=== PATIENT | female | born 1940 | race Caucasian/White ===

== ENCOUNTER 2017-11-12 20:06 | Inpatient (IN) | payer MEDICARE, OTHER ==
[~2017-11-12] VITALS: Ht 166.4 cm; Wt 72.0 kg
[~2017-11-12 20:06] MED LIST: DABI150C PO; DIAZ5TAB PO; DIGO250T PO; LEVO100T9 PO; MECL25TA3 PO; METO25TA6 PO; MONT10TA21 PO; PRED10TA23 PO; SERT100T10 PO; THEO300T22 PO; TRAZ-143 PO; pantoprazole 40 MG vial IV SCH
[2017-11-12 20:35] LABS: BASOPHILS # (AUTO) 0.1 X10'3 (0-0.2); BASOPHILS % (AUTO) 0.3 % (0-1); EOSINOPHILS % (AUTO) 0.1 % (0-6); HEMATOCRIT 46.9 % (35.0-45.0); HEMOGLOBIN 16.4 g/dl (12.0-16.0); LYMPHOCYTES # (AUTO) 1.2 X10'3 (1.1-4.8); LYMPHOCYTES % (AUTO) 7.9 % (21-51); MEAN CORPUSCULAR HEMOGLOBIN 31.9 PG (27.0-31.0); MEAN CORPUSCULAR VOLUME 91.3 FL (78-98); MEAN PLATELET VOLUME 6.6 FL (7.4-10.4); MONOCYTES # (AUTO) 0.4 X10'3 (0-0.9); MONOCYTES % (AUTO) 2.6 % (2-12); NEUTROPHILS # (AUTO) 13.8 X10'3 (1.8-7.7); NEUTROPHILS % (AUTO) 89.1 % (42-75); PLATELET COUNT 272 X10'3 (140-440); RED BLOOD COUNT 5.14 X10'6 (4.20-5.60); WHITE BLOOD COUNT 15.5 X10'3 (4.5-11.0)
[2017-11-12 20:46] LABS: PROTHROMBIN TIME 10.4 SECONDS (9.0-12.0)
[2017-11-12 20:51] LABS: GLUCOSE 146 MG/DL (70-104)
[2017-11-12 20:52] LABS: ALANINE AMINOTRANSFERASE 19 U/L (12-78); ALBUMIN 4.2 G/DL (3.4-5.0); ALBUMIN/GLOBULIN RATIO 1.2 (1.1-1.5); ALKALINE PHOSPHATASE 85 IU/L (46-116); ANION GAP 13 (8-16); ASPARTATE AMINO TRANSFERASE 12 U/L (10-37); BILIRUBIN,TOTAL 1.1 MG/DL (0.1-1.0); BLOOD UREA NITROGEN 20 MG/DL (7-18); CALCIUM 9.9 MG/DL (8.5-10.1); CHLORIDE 106 MMOL/L (99-107); POTASSIUM 3.9 MMOL/L (3.5-5.1); SODIUM 143 MMOL/L (135-145); TOTAL PROTEIN 7.7 G/DL (6.4-8.2); eGFR 54 ML/MIN
[2017-11-12] MEDS ORDERED: temazepam 15mg capsule PO PRN (21:00)
[2017-11-12] MEDS ORDERED: normal saline 1000ML IV soln IVB ONE (21:20)
[2017-11-12] MEDS ORDERED: ondansetron/PF 4mg/2ml inj IV ONE (21:20)
[2017-11-12] MEDS ORDERED: piperacillin/tazo 4.5gm/100ml 100 ML IV STA (21:39)
[2017-11-12] MEDS ORDERED: morphine 5 MG/ML injection IM ONE (21:40)
[2017-11-12 21:43] LABS: LIPASE 72 U/L (73-393)
[2017-11-12] MEDS ORDERED: morphine 2 MG/ML inj. syringe IV ONE (22:20)
[2017-11-12 23:03] LABS: CLARITY,URINE SLIGHTLY CLOUDY (Clear); COLOR,URINE YELLOW (Yellow); GLUCOSE, URINE NEGATIVE (Neg); KETONES,URINE TRACE mg/dl (Neg); LEUKOCYTE ESTERASE ,URINE LARGE (Neg); NITRITES, URINE NEGATIVE (Neg); OCCULT BLOOD,URINE TRACE-LYSED (Neg); PROTEIN,URINE NEGATIVE (Neg); UROBILINOGEN,URINE 0.2 E.U/dL (0.2-1.0)
[2017-11-12 23:25] LABS: UA COLLECTION TYPE CLN CATCH MIDSTREAM
[2017-11-12 23:27] LABS: CAL OXALATE CRYSTALS 1+ /HPF (NEGATIVE); WBC,URINE 50-100 /HPF (0-4)
[2017-11-12 23:28] LABS: MUCUS STRANDS MODERATE /LPF (Neg); RBC,URINE 0-2 /HPF (0-2); SQUAMOUS EPITHELIAL CELL,UR MODERATE /LPF (FEW); TRANSITIONAL EPI CELLS,URINE FEW /HPF
[2017-11-12 23:29] LABS: BACTERIA,URINE 1+ /HPF (Neg)
[2017-11-12] MEDS ORDERED: bisacodyl 10mg suppository rectal RC PRN (23:45)
[2017-11-12] MEDS ORDERED: magnesium hydroxide 30ml (MOM) UD suspension PO PRN (23:45)
[2017-11-12] MEDS ORDERED: acetaminophen 650mg rectal suppository RC PRN (23:45)
[2017-11-12] MEDS ORDERED: diphenhydrAMINE 25mg capsule PO PRN (23:45)
[2017-11-12] MEDS ORDERED: diphenhydrAMINE 50 mg/ml inj IV PRN (23:45)
[2017-11-12] MEDS ORDERED: mag hydrox/Alum hydrox/simeth 30ml oral suspension PO PRN (23:45)
[2017-11-12] MEDS ORDERED: acetaminophen 325mg tablet PO PRN ×2 (23:45)
[2017-11-12] MEDS ORDERED: HYDROmorphone 1 mg/ml syringe IV PRN ×2 (23:45)
[2017-11-12] MEDS ORDERED: LISI10TA4 (23:48)
[2017-11-12] MEDS ORDERED: POTA10CA69 (23:48)
[2017-11-12] MEDS ORDERED: FURO40TA4 (23:48)
[2017-11-12] MEDS ORDERED: BUDE10.22 (23:48)
[2017-11-13 00:11] LABS: PARTIAL THROMBOPLASTIN TIME 27 SECONDS (22-32)
[2017-11-13 00:22] LABS: MAGNESIUM 1.8 MG/DL (1.5-2.4); PHOSPHORUS 3.8 MG/DL (2.3-4.5)
[2017-11-13] MEDS: normal saline 1000ml 1,000 ML IV SCH ×3 (00:33→21:14)
[2017-11-13] MEDS ORDERED: cefTRIAXone 1g/NS 100ml IVPB 100 ML IV SCH (02:18)
[2017-11-13] MEDS ORDERED: HYDROmorphone 2mg/ml vial IV PRN (02:30)
[2017-11-13] MEDS ORDERED: CefTRIAXone/D5W-Rocephin 1gm 50 ML IV ONE (02:34)
[2017-11-13] MEDS: HYDROmorphone 2mg/ml vial IV PRN ×5 (02:38→21:02)
[2017-11-13] MEDS: ondansetron/PF 4mg/2ml inj IV PRN ×2 (02:38→18:35)
[2017-11-13 06:42] LABS: BASOPHILS % (AUTO) 0.3 % (0-1); EOSINOPHILS # (AUTO) 0.2 X10'3 (0-0.9); EOSINOPHILS % (AUTO) 1.5 % (0-6); HEMATOCRIT 38.9 % (35.0-45.0); HEMOGLOBIN 14.1 g/dl (12.0-16.0); LYMPHOCYTES # (AUTO) 1.1 X10'3 (1.1-4.8); LYMPHOCYTES % (AUTO) 8.9 % (21-51); MEAN CORPUSCULAR HEMOGLOBIN 32.5 PG (27.0-31.0); MEAN CORPUSCULAR VOLUME 89.8 FL (78-98); MEAN PLATELET VOLUME 6.3 FL (7.4-10.4); MONOCYTES # (AUTO) 0.7 X10'3 (0-0.9); MONOCYTES % (AUTO) 5.7 % (2-12); NEUTROPHILS # (AUTO) 10.5 X10'3 (1.8-7.7); NEUTROPHILS % (AUTO) 83.6 % (42-75); PLATELET COUNT 218 X10'3 (140-440); RED BLOOD COUNT 4.33 X10'6 (4.20-5.60); RED CELL DISTRIBUTION WIDTH 14.9 % (11.5-14.5); WHITE BLOOD COUNT 12.6 X10'3 (4.5-11.0)
[2017-11-13 07:01] LABS: ALANINE AMINOTRANSFERASE 17 U/L (12-78); ALBUMIN 3.2 G/DL (3.4-5.0); ALBUMIN/GLOBULIN RATIO 1.1 (1.1-1.5); ALKALINE PHOSPHATASE 70 IU/L (46-116); ANION GAP 9 (8-16); ASPARTATE AMINO TRANSFERASE 13 U/L (10-37); BILIRUBIN,TOTAL 0.8 MG/DL (0.1-1.0); BLOOD UREA NITROGEN 17 MG/DL (7-18); BUN/CREATININE RATIO 18.9 (6.6-38.0); CALCIUM 8.6 MG/DL (8.5-10.1); CHLORIDE 110 MMOL/L (99-107); GLUCOSE 118 MG/DL (70-104); POTASSIUM 3.8 MMOL/L (3.5-5.1); SODIUM 145 MMOL/L (135-145); TOTAL CARBON DIOXIDE 26.3 MMOL/L (24-32); TOTAL PROTEIN 6.2 G/DL (6.4-8.2); eGFR 61 ML/MIN
[2017-11-13] MEDS ORDERED: heparin, porcine 5000 units/ml vial SQ SCH (08:00)
[2017-11-13] MEDS: docusate sod 100mg capsule PO SCH ×2 (08:28→21:02)
[2017-11-13] MEDS: levoTHYROXINE 100mcg tablet PO SCH (08:28)
[2017-11-13] MEDS: dabigatran 150mg capsule PO SCH (08:29)
[2017-11-13] MEDS: digoxin 250mcg (0.25mg) tablet PO SCH (08:29)
[2017-11-13] MEDS: sertraline 50mg tablet PO SCH ×2 (08:29→21:02)
[2017-11-13 08:36] LABS: MEAN CORPUSCULAR HGB CONC 36.2 % (33.0-36.5)
[2017-11-13 09:00] VITALS: BP 131/66
[2017-11-13] MEDS ORDERED: diatrozoate meglu/diatrozoate sod (37% iodine) 120ML oral solution PO ONE (10:10)
[2017-11-13] MEDS ORDERED: diatr meglu/diatrizoate 30ml oral sol.-(3 dose) bottle PO ONE (10:35)
[2017-11-13 11:31] VITALS: BP 139/75
[2017-11-13] MEDS: lactobacillus rhamnosus 10,000 MMU CELLS/CAPSULE PO SCH (16:35)
[2017-11-13] MEDS ORDERED: meclizine 12.5mg tablet PO PRN (18:00)
[2017-11-13 18:40] VITALS: BP 140/65
[2017-11-13] MEDS: cefTRIAXone 1g/NS 100ml IVPB 100 ML IV SCH (21:12)
[2017-11-13] MEDS: heparin 10,000 units/1 ML INJ IV PRN (22:25)
[2017-11-14] VITALS: BP 143/75
[2017-11-14] MEDS: HYDROmorphone 2mg/ml vial IV PRN ×2 (00:56→07:54)
[2017-11-14] MEDS: ondansetron/PF 4mg/2ml inj IV PRN (04:26)
[2017-11-14] MEDS: normal saline 1000ml 1,000 ML IV SCH ×3 (04:28→16:41)
[2017-11-14 04:38] LABS: BASOPHILS % (AUTO) 0 % (0-1); EOSINOPHILS # (AUTO) 0.2 X10'3 (0-0.9); EOSINOPHILS % (AUTO) 1.3 % (0-6); HEMOGLOBIN 14.1 g/dl (12.0-16.0); LYMPHOCYTES % (AUTO) 7.1 % (21-51); MEAN CORPUSCULAR HEMOGLOBIN 32.3 PG (27.0-31.0); MEAN CORPUSCULAR HGB CONC 35.2 % (33.0-36.5); MEAN CORPUSCULAR VOLUME 91.8 FL (78-98); MEAN PLATELET VOLUME 6.8 FL (7.4-10.4); MONOCYTES # (AUTO) 0.8 X10'3 (0-0.9); MONOCYTES % (AUTO) 5.7 % (2-12); NEUTROPHILS # (AUTO) 11.9 X10'3 (1.8-7.7); NEUTROPHILS % (AUTO) 85.9 % (42-75); PLATELET COUNT 209 X10'3 (140-440); RED BLOOD COUNT 4.36 X10'6 (4.20-5.60); RED CELL DISTRIBUTION WIDTH 15.1 % (11.5-14.5); WHITE BLOOD COUNT 13.9 X10'3 (4.5-11.0)
[2017-11-14 05:18] LABS: ALANINE AMINOTRANSFERASE 17 U/L (12-78); ALBUMIN 3.1 G/DL (3.4-5.0); ALKALINE PHOSPHATASE 70 IU/L (46-116); ANION GAP 11 (8-16); ASPARTATE AMINO TRANSFERASE 12 U/L (10-37); BILIRUBIN,TOTAL 1.2 MG/DL (0.1-1.0); BLOOD UREA NITROGEN 15 MG/DL (7-18); BUN/CREATININE RATIO 18.8 (6.6-38.0); CHLORIDE 109 MMOL/L (99-107); GLUCOSE 105 MG/DL (70-104); POTASSIUM 3.3 MMOL/L (3.5-5.1); SODIUM 146 MMOL/L (135-145); TOTAL CARBON DIOXIDE 26.4 MMOL/L (24-32); TOTAL PROTEIN 6.3 G/DL (6.4-8.2); eGFR 70 ML/MIN
[2017-11-14 07:21] VITALS: BP 127/59
[2017-11-14] MEDS: lactobacillus rhamnosus 10,000 MMU CELLS/CAPSULE PO SCH ×2 (07:30→16:41)
[2017-11-14] MEDS: docusate sod 100mg capsule PO SCH ×2 (07:41→21:40)
[2017-11-14] MEDS: sertraline 50mg tablet PO SCH ×2 (07:54→23:51)
[2017-11-14] MEDS: montelukast 10mg tablet PO SCH (07:54)
[2017-11-14] MEDS: levoTHYROXINE 100mcg tablet PO SCH (07:54)
[2017-11-14] MEDS: lisinopril 10 MG tablet PO SCH (07:55)
[2017-11-14] MEDS: digoxin 250mcg (0.25mg) tablet PO SCH (07:55)
[2017-11-14] MEDS ORDERED: potassium Cl 20 mEq SR tablet PO PRN (11:20)
[2017-11-14] MEDS ORDERED: potassium Cl 40MEQ/NS 500ml 500 ML IV PRN ×2 (11:20)
[2017-11-14 11:26] VITALS: BP 136/65
[2017-11-14] MEDS: heparin 10,000 units/1 ML INJ IV PRN (12:51)
[2017-11-14 19:00] VITALS: BP 135/65
[2017-11-14] MEDS ORDERED: D5W ROCEPHIN IV ONE (21:39)
[2017-11-14] MEDS ORDERED: CEFTRIAXONE IV ONE (21:39)
[2017-11-14] MEDS: cefTRIAXone 1g/NS 100ml IVPB 100 ML IV SCH (21:53)
[2017-11-15] VITALS: BP 137/64
[2017-11-15 01:45] LABS: PARTIAL THROMBOPLASTIN TIME 51 SECONDS (22-32)
[2017-11-15 01:49] LABS: ALANINE AMINOTRANSFERASE 14 U/L (12-78); ALBUMIN 2.6 G/DL (3.4-5.0); ALBUMIN/GLOBULIN RATIO 0.9 (1.1-1.5); ALKALINE PHOSPHATASE 72 IU/L (46-116); ANION GAP 9 (8-16); ASPARTATE AMINO TRANSFERASE 13 U/L (10-37); BILIRUBIN,TOTAL 0.7 MG/DL (0.1-1.0); BLOOD UREA NITROGEN 11 MG/DL (7-18); BUN/CREATININE RATIO 15.7 (6.6-38.0); CALCIUM 8.5 MG/DL (8.5-10.1); CHLORIDE 112 MMOL/L (99-107); GLUCOSE 90 MG/DL (70-104); POTASSIUM 3.6 MMOL/L (3.5-5.1); SODIUM 146 MMOL/L (135-145); TOTAL CARBON DIOXIDE 25.2 MMOL/L (24-32); TOTAL PROTEIN 5.4 G/DL (6.4-8.2); eGFR 82 ML/MIN
[2017-11-15 02:09] LABS: BASOPHILS % (AUTO) 0.1 % (0-1); EOSINOPHILS # (AUTO) 0.2 X10'3 (0-0.9); EOSINOPHILS % (AUTO) 1.8 % (0-6); HEMATOCRIT 35.4 % (35.0-45.0); HEMOGLOBIN 12.1 g/dl (12.0-16.0); LYMPHOCYTES # (AUTO) 1.4 X10'3 (1.1-4.8); LYMPHOCYTES % (AUTO) 13.3 % (21-51); MEAN CORPUSCULAR HEMOGLOBIN 31.9 PG (27.0-31.0); MEAN CORPUSCULAR HGB CONC 34.3 % (33.0-36.5); MEAN CORPUSCULAR VOLUME 93.2 FL (78-98); MEAN PLATELET VOLUME 7.1 FL (7.4-10.4); MONOCYTES # (AUTO) 0.6 X10'3 (0-0.9); MONOCYTES % (AUTO) 5.6 % (2-12); NEUTROPHILS # (AUTO) 8.4 X10'3 (1.8-7.7); NEUTROPHILS % (AUTO) 79.2 % (42-75); PLATELET COUNT 191 X10'3 (140-440); RED BLOOD COUNT 3.79 X10'6 (4.20-5.60); RED CELL DISTRIBUTION WIDTH 14.7 % (11.5-14.5); WHITE BLOOD COUNT 10.6 X10'3 (4.5-11.0)
[2017-11-15 07:00] VITALS: BP 135/88
[2017-11-15 07:18] LABS: PARTIAL THROMBOPLASTIN TIME 44 SECONDS (22-32)
[2017-11-15] MEDS: sertraline 50mg tablet PO SCH ×2 (07:46→20:55)
[2017-11-15] MEDS: montelukast 10mg tablet PO SCH (07:46)
[2017-11-15] MEDS: lisinopril 10 MG tablet PO SCH (07:47)
[2017-11-15] MEDS: levoTHYROXINE 100mcg tablet PO SCH (07:47)
[2017-11-15] MEDS: lactobacillus rhamnosus 10,000 MMU CELLS/CAPSULE PO SCH ×2 (07:47→17:05)
[2017-11-15] MEDS: digoxin 250mcg (0.25mg) tablet PO SCH (07:48)
[2017-11-15] MEDS: docusate sod 100mg capsule PO SCH ×2 (07:49→20:55)
[2017-11-15] MEDS: HYDROmorphone 2mg/ml vial IV PRN ×3 (07:50→20:56)
[2017-11-15] MEDS: normal saline 1000ml 1,000 ML IV SCH ×2 (07:55→16:07)
[2017-11-15] MEDS: heparin 10,000 units/1 ML INJ IV PRN (09:05)
[2017-11-15 11:35] VITALS: BP 131/58
[2017-11-15] MEDS: albuterol 2.5 MG/3 ML nebule NEB PRN ×2 (12:10→21:20)
[2017-11-15 13:15] LABS: PARTIAL THROMBOPLASTIN TIME 75 SECONDS (22-32)
[2017-11-15 20:00] VITALS: BP 131/56
[2017-11-15 20:35] LABS: PARTIAL THROMBOPLASTIN TIME 50 SECONDS (22-32)
[2017-11-15] MEDS ORDERED: CefTRIAXone/D5W-Rocephin 1gm 50 ML IV SCH (20:51)
[2017-11-16] VITALS: BP 114/88
[2017-11-16 02:27] LABS: BASOPHILS % (AUTO) 0.3 % (0-1); EOSINOPHILS # (AUTO) 0.2 X10'3 (0-0.9); EOSINOPHILS % (AUTO) 2.3 % (0-6); HEMATOCRIT 31.8 % (35.0-45.0); HEMOGLOBIN 11.3 g/dl (12.0-16.0); LYMPHOCYTES # (AUTO) 1.4 X10'3 (1.1-4.8); LYMPHOCYTES % (AUTO) 18.6 % (21-51); MEAN CORPUSCULAR HEMOGLOBIN 32.5 PG (27.0-31.0); MEAN CORPUSCULAR HGB CONC 35.4 % (33.0-36.5); MEAN PLATELET VOLUME 6.4 FL (7.4-10.4); MONOCYTES # (AUTO) 0.4 X10'3 (0-0.9); MONOCYTES % (AUTO) 6.1 % (2-12); NEUTROPHILS # (AUTO) 5.3 X10'3 (1.8-7.7); NEUTROPHILS % (AUTO) 72.7 % (42-75); PLATELET COUNT 179 X10'3 (140-440); RED BLOOD COUNT 3.46 X10'6 (4.20-5.60); RED CELL DISTRIBUTION WIDTH 14.9 % (11.5-14.5); WHITE BLOOD COUNT 7.3 X10'3 (4.5-11.0)
[2017-11-16 02:43] LABS: ALANINE AMINOTRANSFERASE 18 U/L (12-78); ALBUMIN 2.6 G/DL (3.4-5.0); ALKALINE PHOSPHATASE 68 IU/L (46-116); ANION GAP 8 (8-16); ASPARTATE AMINO TRANSFERASE 13 U/L (10-37); BILIRUBIN,TOTAL 0.4 MG/DL (0.1-1.0); BLOOD UREA NITROGEN 7 MG/DL (7-18); BUN/CREATININE RATIO 8.8 (6.6-38.0); CALCIUM 8.5 MG/DL (8.5-10.1); CHLORIDE 111 MMOL/L (99-107); GLUCOSE 90 MG/DL (70-104); POTASSIUM 3.4 MMOL/L (3.5-5.1); SODIUM 144 MMOL/L (135-145); TOTAL CARBON DIOXIDE 25.5 MMOL/L (24-32); TOTAL PROTEIN 5.3 G/DL (6.4-8.2); eGFR 70 ML/MIN
[2017-11-16] MEDS: albuterol 2.5 MG/3 ML nebule NEB PRN ×2 (05:55→11:45)
[2017-11-16 06:55] VITALS: BP 135/73
[2017-11-16] MEDS: levoTHYROXINE 100mcg tablet PO SCH (07:00)
[2017-11-16] MEDS: normal saline 1000ml 1,000 ML IV SCH ×2 (07:45→17:45)
[2017-11-16] MEDS: docusate sod 100mg capsule PO SCH ×2 (08:00→20:00)
[2017-11-16] MEDS: sertraline 50mg tablet PO SCH ×2 (10:24→20:00)
[2017-11-16] MEDS: lisinopril 10 MG tablet PO SCH (10:24)
[2017-11-16] MEDS: montelukast 10mg tablet PO SCH (10:25)
[2017-11-16] MEDS: potassium Cl 20 mEq SR tablet PO PRN ×2 (10:25→21:30)
[2017-11-16] MEDS: lactobacillus rhamnosus 10,000 MMU CELLS/CAPSULE PO SCH ×2 (10:25→17:58)
[2017-11-16] MEDS: digoxin 250mcg (0.25mg) tablet PO SCH (10:28)
[2017-11-16 10:51] VITALS: BP 122/69
[2017-11-16] MEDS: HYDROmorphone 2mg/ml vial IV PRN ×2 (11:34→19:04)
[2017-11-16] MEDS: heparin 10,000 units/1 ML INJ IV PRN (15:35)
[2017-11-16 20:00] VITALS: BP 129/70
[2017-11-16] MEDS: dabigatran 150mg capsule PO SCH (20:00)
[2017-11-17] VITALS: BP 130/86
[2017-11-17] MEDS: albuterol 2.5 MG/3 ML nebule NEB PRN (02:47)
[2017-11-17] MEDS: normal saline 1000ml 1,000 ML IV SCH (03:45)
[2017-11-17 05:42] LABS: BASOPHILS % (AUTO) 0.3 % (0-1); EOSINOPHILS # (AUTO) 0.1 X10'3 (0-0.9); EOSINOPHILS % (AUTO) 1.7 % (0-6); HEMATOCRIT 33.3 % (35.0-45.0); HEMOGLOBIN 11.4 g/dl (12.0-16.0); LYMPHOCYTES # (AUTO) 0.8 X10'3 (1.1-4.8); LYMPHOCYTES % (AUTO) 9.6 % (21-51); MEAN CORPUSCULAR HEMOGLOBIN 31.8 PG (27.0-31.0); MEAN CORPUSCULAR HGB CONC 34.4 % (33.0-36.5); MEAN CORPUSCULAR VOLUME 92.6 FL (78-98); MEAN PLATELET VOLUME 7.2 FL (7.4-10.4); MONOCYTES # (AUTO) 0.5 X10'3 (0-0.9); MONOCYTES % (AUTO) 5.6 % (2-12); NEUTROPHILS # (AUTO) 6.9 X10'3 (1.8-7.7); NEUTROPHILS % (AUTO) 82.8 % (42-75); PLATELET COUNT 176 X10'3 (140-440); RED BLOOD COUNT 3.59 X10'6 (4.20-5.60); RED CELL DISTRIBUTION WIDTH 14.4 % (11.5-14.5); WHITE BLOOD COUNT 8.3 X10'3 (4.5-11.0)
[2017-11-17 06:23] LABS: ALANINE AMINOTRANSFERASE 11 U/L (12-78); ALBUMIN 2.6 G/DL (3.4-5.0); ALBUMIN/GLOBULIN RATIO 0.9 (1.1-1.5); ALKALINE PHOSPHATASE 80 IU/L (46-116); ANION GAP 9 (8-16); ASPARTATE AMINO TRANSFERASE 13 U/L (10-37); BILIRUBIN,TOTAL 0.7 MG/DL (0.1-1.0); BLOOD UREA NITROGEN 3 MG/DL (7-18); BUN/CREATININE RATIO 3.8 (6.6-38.0); CALCIUM 8.6 MG/DL (8.5-10.1); CHLORIDE 110 MMOL/L (99-107); GLUCOSE 103 MG/DL (70-104); POTASSIUM 3.4 MMOL/L (3.5-5.1); SODIUM 144 MMOL/L (135-145); TOTAL CARBON DIOXIDE 25.3 MMOL/L (24-32); TOTAL PROTEIN 5.4 G/DL (6.4-8.2); eGFR 70 ML/MIN
[2017-11-17 06:55] VITALS: BP 128/68
[2017-11-17] MEDS: docusate sod 100mg capsule PO SCH (08:00)
[2017-11-17] MEDS: levoTHYROXINE 100mcg tablet PO SCH (08:33)
[2017-11-17] MEDS: dabigatran 150mg capsule PO SCH (08:33)
[2017-11-17] MEDS: lactobacillus rhamnosus 10,000 MMU CELLS/CAPSULE PO SCH (08:33)
[2017-11-17] MEDS: montelukast 10mg tablet PO SCH (08:34)
[2017-11-17] MEDS: lisinopril 10 MG tablet PO SCH (08:34)
[2017-11-17] MEDS: sertraline 50mg tablet PO SCH (08:39)
[2017-11-17] MEDS: potassium Cl 20 mEq SR tablet PO PRN (08:43)
[2017-11-17] MEDS: digoxin 250mcg (0.25mg) tablet PO SCH (08:44)
[2017-11-17] MEDS ORDERED: CEPH250T PO (10:21)
[2017-11-17 10:45] VITALS: BP 116/63
== END 2017-11-17 11:45 | disposition home or self-care (01) | DRG 389 ==
LOC: ER 20:07 → ED HOLD 23:45 → SUR 3N 11-13 07:06
PROVIDERS: ADMIT Family Medicine; ATTEND Family Medicine
PROC: 0D9670Z Drainage of Stomach with Drainage Device, Via Natural or Artificial Opening (ICD-10-PCS; principal; 2017-11-12)
DX: K56.609 Unspecified intestinal obstruction, unspecified as to partial versus complete obstruction (principal); I50.22 Chronic systolic (congestive) heart failure; I48.91 Unspecified atrial fibrillation; I11.0 Hypertensive heart disease with heart failure; N39.0 Urinary tract infection, site not specified; E03.9 Hypothyroidism, unspecified; F32.9 Major depressive disorder, single episode, unspecified; I25.10 Atherosclerotic heart disease of native coronary artery without angina pectoris; J44.9 Chronic obstructive pulmonary disease, unspecified; K80.20 Calculus of gallbladder without cholecystitis without obstruction; Z60.2 Problems related to living alone; B96.1 Klebsiella pneumoniae [K. pneumoniae] as the cause of diseases classified elsewhere; I25.2 Old myocardial infarction; Z90.710 Acquired absence of both cervix and uterus; Z88.2 Allergy status to sulfonamides; Z88.1 Allergy status to other antibiotic agents; Z88.6 Allergy status to analgesic agent; Z79.899 Other long term (current) drug therapy; Z79.01 Long term (current) use of anticoagulants; Z86.73 Personal history of transient ischemic attack (TIA), and cerebral infarction without residual deficits
CPT/HCPCS: 36415; 71250; 74176; 80053; 80162; 81001; 83605; 83690; 83735; 83880; 84100; 84145; 85025; 85610; 85730; 87040; 87070; 87077; 87088; 87186; 94640; 94760; 96365; 96375; 99285; A4315; A6258; C9113; J0696; J1170; J1644; J2270; J2405; J2543; J3480; J7030; Q9963

== ENCOUNTER 2018-01-09 18:52 | Inpatient (IN) | payer MEDICARE, OTHER ==
[~2018-01-09] VITALS: Ht 167.6 cm; Wt 72.0 kg
[~2018-01-09 18:52] MED LIST changes: +BUDE10.22; -DIAZ5TAB PO; +FURO40TA4; +LISI10TA4; -METO25TA6 PO; +POTA10CA69; -PRED10TA23 PO; -THEO300T22 PO; -TRAZ-143 PO; +amiodarone 50MG/ML inj IV ONE; +epiNEPHrine 0.1mg/ml 10ml syringe ONE; -pantoprazole 40 MG vial IV SCH; +sodium chloride 0.9% 10ml vial - diluent IJ ONE
[2018-01-09 19:22] LABS: BASOPHILS % (AUTO) 0.6 % (0-1); EOSINOPHILS # (AUTO) 0.1 X10'3 (0-0.9); EOSINOPHILS % (AUTO) 1.3 % (0-6); HEMATOCRIT 39.4 % (35.0-45.0); HEMOGLOBIN 14.1 g/dl (12.0-16.0); LYMPHOCYTES % (AUTO) 13.9 % (21-51); MEAN CORPUSCULAR HEMOGLOBIN 32.2 PG (27.0-31.0); MEAN CORPUSCULAR HGB CONC 35.8 % (33.0-36.5); MEAN CORPUSCULAR VOLUME 89.9 FL (78-98); MEAN PLATELET VOLUME 6.9 FL (7.4-10.4); MONOCYTES # (AUTO) 0.4 X10'3 (0-0.9); MONOCYTES % (AUTO) 4.9 % (2-12); NEUTROPHILS # (AUTO) 5.9 X10'3 (1.8-7.7); NEUTROPHILS % (AUTO) 79.3 % (42-75); PLATELET COUNT 167 X10'3 (140-440); RED BLOOD COUNT 4.38 X10'6 (4.20-5.60); WHITE BLOOD COUNT 7.5 X10'3 (4.5-11.0)
[2018-01-09 19:32] LABS: PARTIAL THROMBOPLASTIN TIME 36 SECONDS (22-32); PROTHROMBIN TIME 10.7 SECONDS (9.0-12.0)
[2018-01-09 19:45] LABS: ALANINE AMINOTRANSFERASE 23 U/L (12-78); ALBUMIN 3.5 G/DL (3.4-5.0); ALKALINE PHOSPHATASE 80 IU/L (46-116); ANION GAP 13 (8-16); ASPARTATE AMINO TRANSFERASE 28 U/L (10-37); BILIRUBIN,TOTAL 1.1 MG/DL (0.1-1.0); BLOOD UREA NITROGEN 7 MG/DL (7-18); BUN/CREATININE RATIO 8.3 (6.6-38.0); CALCIUM 9.1 MG/DL (8.5-10.1); CHLORIDE 104 MMOL/L (99-107); CREATININE 0.84 MG/DL (0.40-0.90); GLUCOSE 108 MG/DL (70-104); POTASSIUM 3.5 MMOL/L (3.5-5.1); SODIUM 140 MMOL/L (135-145); TOTAL CARBON DIOXIDE 23.2 MMOL/L (24-32); TOTAL PROTEIN 7.1 G/DL (6.4-8.2); eGFR 66 ML/MIN
[2018-01-09] MEDS ORDERED: nitroGLYCERIN 0.2mg/hour patch TD ONE (20:15)
[2018-01-09] MEDS ORDERED: CefTRIAXone 2gm/D5W 50ml 50 ML IV ONE (20:30)
[2018-01-09] MEDS ORDERED: azithromycin/NS 500mg/250ml 250 ML IV ONE (20:30)
[2018-01-09] MEDS ORDERED: acetaminophen 325mg tablet PO PRN (21:30)
[2018-01-09] MEDS ORDERED: ondansetron/PF 4mg/2ml inj IV PRN (21:30)
[2018-01-09] MEDS ORDERED: furosemide 20 MG/2 ML vial IV ONE (21:30)
[2018-01-09] MEDS ORDERED: potassium Cl 20 mEq SR tablet PO PRN ×2 (21:30)
[2018-01-09] MEDS ORDERED: potassium Cl 40MEQ/NS 500ml 500 ML IV PRN ×2 (21:30)
[2018-01-09 22:03] LABS: HEMOGLOBIN A1C 5.1 % (4.5-6.2)
[2018-01-09] MEDS: ipratropium/albuterol 3ml nebule NEB PRN (23:48)
[2018-01-10] VITALS (12 sets, daily range): BP systolic 102–138; BP diastolic 41–92
[2018-01-10] MEDS ORDERED: magnesium 2GM in 50ml NS 50 ML IV STA (01:14)
[2018-01-10] MEDS ORDERED: potassium 10mEq/100ml NS w/LIDOcaine (10mg/bag) IV ONE (01:15)
[2018-01-10] MEDS ORDERED: amiodarone 150mg/dext, iso-os 100 ML IV ONE (01:15)
[2018-01-10] MEDS ORDERED: ondansetron/PF 4mg/2ml inj IV ONE (01:15)
[2018-01-10] MEDS ORDERED: magnesium 2GM in 50ml NS 50 ML IV ONE ×2 (01:25→10:30)
[2018-01-10] MEDS: amiodarone/D5 450MG/250ML BAG 250 ML IV SCH ×2 (01:48→11:17)
[2018-01-10 02:16] LABS: ALBUMIN 3.3 G/DL (3.4-5.0); ANION GAP 12 (8-16); BLOOD UREA NITROGEN 7 MG/DL (7-18); BUN/CREATININE RATIO 6.8 (6.6-38.0); CALCIUM 8.7 MG/DL (8.5-10.1); CHLORIDE 102 MMOL/L (99-107); CHOL/HDL RATIO 3.2 (0.00-4.99); CHOLESTEROL 123 MG/DL (0-200); CREATININE 1.03 MG/DL (0.40-0.90); GLUCOSE 114 MG/DL (70-104); HDL CHOLESTEROL 38 MG/DL (35-60); LDL CHOLESTEROL 75 MG/DL (50-100); MAGNESIUM 1.7 MG/DL (1.5-2.4); POTASSIUM 3.6 MMOL/L (3.5-5.1); SODIUM 140 MMOL/L (135-145); TOTAL CARBON DIOXIDE 26.5 MMOL/L (24-32); TRIGLYCERIDES 85 MG/DL (20-135); eGFR 52 ML/MIN
[2018-01-10 02:23] LABS: BASOPHILS % (AUTO) 0 % (0-1); EOSINOPHILS # (AUTO) 0.1 X10'3 (0-0.9); EOSINOPHILS % (AUTO) 1.1 % (0-6); HEMATOCRIT 37.1 % (35.0-45.0); HEMOGLOBIN 13.1 g/dl (12.0-16.0); LYMPHOCYTES # (AUTO) 0.7 X10'3 (1.1-4.8); LYMPHOCYTES % (AUTO) 7.5 % (21-51); MEAN CORPUSCULAR HGB CONC 35.3 % (33.0-36.5); MEAN CORPUSCULAR VOLUME 90.6 FL (78-98); MEAN PLATELET VOLUME 7.2 FL (7.4-10.4); MONOCYTES # (AUTO) 0.1 X10'3 (0-0.9); MONOCYTES % (AUTO) 1.6 % (2-12); NEUTROPHILS # (AUTO) 8.5 X10'3 (1.8-7.7); NEUTROPHILS % (AUTO) 89.8 % (42-75); PLATELET COUNT 143 X10'3 (140-440); RED CELL DISTRIBUTION WIDTH 15.2 % (11.5-14.5); WHITE BLOOD COUNT 9.4 X10'3 (4.5-11.0)
[2018-01-10 04:21] LABS: TOTAL CELLS COUNTED 100
[2018-01-10 04:22] LABS: ANISOCYTOSIS FEW; PLATELET ESTIMATE NORMAL; TOXIC GRANULATION 1+; TOXIC VACUOLATION FEW
[2018-01-10] MEDS: ipratropium/albuterol 3ml nebule NEB PRN (05:31)
[2018-01-10] MEDS ORDERED: non-formulary drug (Sertraline HCl 1 TAB) PO SCH (08:00)
[2018-01-10] MEDS: K and/or MAG REPLACEMENT MC SCH (08:00)
[2018-01-10] MEDS: CefTRIAXone/D5W-Rocephin 1gm 50 ML IV SCH (10:03)
[2018-01-10] MEDS ORDERED: methylPREDNISolone sod succ 125mg/2ml vial IV ONE (10:30)
[2018-01-10] MEDS ORDERED: metoprolol tartrate 1mg/ml inj IV PRN (10:30)
[2018-01-10] MEDS ORDERED: regadenoson 0.4mg/5ml syringe IV ONE (10:30)
[2018-01-10] MEDS: magnesium oxide 400mg tablet PO SCH ×2 (10:30→20:18)
[2018-01-10] MEDS ORDERED: aminophylline 250mg/10ml inj. IV PRN (10:30)
[2018-01-10] MEDS: digoxin 250mcg (0.25mg) tablet PO SCH (10:45)
[2018-01-10] MEDS: dabigatran 150mg capsule PO SCH ×2 (10:46→20:18)
[2018-01-10] MEDS: guaiFENesin ER 600mg tablet PO SCH ×2 (10:46→20:17)
[2018-01-10] MEDS: montelukast 10mg tablet PO SCH (10:46)
[2018-01-10] MEDS: levoTHYROXINE 100mcg tablet PO SCH (10:49)
[2018-01-10] MEDS: azithromycin 250mg tablet PO SCH (10:49)
[2018-01-10] MEDS: sertraline 50mg tablet PO SCH ×2 (10:50→20:18)
[2018-01-10] MEDS: budesonide 0.5mg/2ml UD nebule IH SCH ×2 (10:59→20:00)
[2018-01-10] MEDS: ipratropium/albuterol 3ml nebule NEB SCH ×4 (10:59→23:00)
[2018-01-10] MEDS ORDERED: BUDE10.22 (12:28)
[2018-01-10] MEDS ORDERED: POTA10CA69 (12:28)
[2018-01-10] MEDS: vancomycin/NS 1 GM ADD-VANTAGE 250 ML IV SCH (13:24)
[2018-01-10] MEDS: methylPREDNISolone sod succ 125mg/2ml vial IV SCH ×2 (14:15→20:18)
[2018-01-10] MEDS: potassium Cl 20 mEq SR tablet PO SCH (17:30)
[2018-01-10] MEDS ORDERED: potassium Cl oral solution 20 MEQ/15 ML PO PRN ×2 (19:08→19:09)
[2018-01-10] MEDS: lactobacillus rhamnosus 10,000 MMU CELLS/CAPSULE PO SCH (20:18)
[2018-01-10] MEDS: Melatonin 3mg tablet PO PRN (20:18)
[2018-01-11] VITALS (14 sets, daily range): BP systolic 96–135; BP diastolic 49–85
[2018-01-11] MEDS: amiodarone/D5 450MG/250ML BAG 250 ML IV SCH (01:42)
[2018-01-11] MEDS: methylPREDNISolone sod succ 125mg/2ml vial IV SCH ×4 (02:56→20:53)
[2018-01-11] MEDS: ipratropium/albuterol 3ml nebule NEB PRN (04:03)
[2018-01-11 05:16] LABS: BASOPHILS % (AUTO) 0.1 % (0-1); EOSINOPHILS % (AUTO) 0.8 % (0-6); HEMATOCRIT 33.4 % (35.0-45.0); LYMPHOCYTES # (AUTO) 0.7 X10'3 (1.1-4.8); LYMPHOCYTES % (AUTO) 13.5 % (21-51); MEAN CORPUSCULAR HEMOGLOBIN 31.7 PG (27.0-31.0); MEAN CORPUSCULAR HGB CONC 35.8 % (33.0-36.5); MEAN CORPUSCULAR VOLUME 88.6 FL (78-98); MEAN PLATELET VOLUME 6.8 FL (7.4-10.4); MONOCYTES # (AUTO) 0.2 X10'3 (0-0.9); MONOCYTES % (AUTO) 3.5 % (2-12); NEUTROPHILS # (AUTO) 4.1 X10'3 (1.8-7.7); NEUTROPHILS % (AUTO) 82.1 % (42-75); PLATELET COUNT 158 X10'3 (140-440); RED BLOOD COUNT 3.77 X10'6 (4.20-5.60); RED CELL DISTRIBUTION WIDTH 15.2 % (11.5-14.5); WHITE BLOOD COUNT 4.9 X10'3 (4.5-11.0)
[2018-01-11 05:29] LABS: ANION GAP 11 (8-16); BLOOD UREA NITROGEN 12 MG/DL (7-18); BUN/CREATININE RATIO 15.2 (6.6-38.0); CALCIUM 8.3 MG/DL (8.5-10.1); CHLORIDE 101 MMOL/L (99-107); CREATININE 0.79 MG/DL (0.40-0.90); GLUCOSE 169 MG/DL (70-104); POTASSIUM 3.5 MMOL/L (3.5-5.1); SODIUM 137 MMOL/L (135-145); eGFR 71 ML/MIN
[2018-01-11] MEDS: ipratropium/albuterol 3ml nebule NEB SCH ×5 (06:54→23:00)
[2018-01-11] MEDS: CefTRIAXone/D5W-Rocephin 1gm 50 ML IV SCH (07:40)
[2018-01-11] MEDS: guaiFENesin ER 600mg tablet PO SCH ×2 (07:41→20:52)
[2018-01-11] MEDS: lactobacillus rhamnosus 10,000 MMU CELLS/CAPSULE PO SCH ×2 (07:41→20:51)
[2018-01-11] MEDS: azithromycin 250mg tablet PO SCH (07:41)
[2018-01-11] MEDS: levoTHYROXINE 100mcg tablet PO SCH (07:41)
[2018-01-11] MEDS: digoxin 250mcg (0.25mg) tablet PO SCH (07:41)
[2018-01-11] MEDS: dabigatran 150mg capsule PO SCH ×2 (07:42→20:52)
[2018-01-11] MEDS: sertraline 50mg tablet PO SCH ×2 (07:42→20:51)
[2018-01-11] MEDS: potassium Cl 20 mEq SR tablet PO SCH ×2 (07:42→17:30)
[2018-01-11] MEDS: montelukast 10mg tablet PO SCH (07:42)
[2018-01-11] MEDS: magnesium oxide 400mg tablet PO SCH ×2 (07:42→20:51)
[2018-01-11] MEDS: K and/or MAG REPLACEMENT MC SCH (08:00)
[2018-01-11] MEDS: budesonide 0.5mg/2ml UD nebule IH SCH ×2 (08:00→19:42)
[2018-01-11] MEDS ORDERED: regadenoson 0.4mg/5ml syringe IV ONE (11:14)
[2018-01-11] MEDS ORDERED: aminophylline inj. 10 ML IV ONE (11:14)
[2018-01-11] MEDS: vancomycin/NS 1 GM ADD-VANTAGE 250 ML IV SCH (13:47)
[2018-01-11] MEDS: carVEDilol 3.125mg tablet PO SCH (20:52)
[2018-01-11] MEDS: Melatonin 3mg tablet PO PRN (21:12)
[2018-01-12] MEDS: vancomycin/NS 1 GM ADD-VANTAGE 250 ML IV SCH ×2 (01:56→12:29)
[2018-01-12] MEDS: methylPREDNISolone sod succ 125mg/2ml vial IV SCH ×2 (01:57→07:20)
[2018-01-12 02:00] VITALS: BP 119/62
[2018-01-12 02:03] LABS: ALBUMIN 2.7 G/DL (3.4-5.0); ANION GAP 8 (8-16); BLOOD UREA NITROGEN 19 MG/DL (7-18); BUN/CREATININE RATIO 21.1 (6.6-38.0); CALCIUM 7.5 MG/DL (8.5-10.1); CHLORIDE 108 MMOL/L (99-107); GLUCOSE 128 MG/DL (70-104); POTASSIUM 3.7 MMOL/L (3.5-5.1); SODIUM 141 MMOL/L (135-145); TOTAL CARBON DIOXIDE 25.2 MMOL/L (24-32); eGFR 61 ML/MIN
[2018-01-12 04:59] LABS: BASOPHILS % (AUTO) 0 % (0-1); EOSINOPHILS # (AUTO) 0.1 X10'3 (0-0.9); EOSINOPHILS % (AUTO) 1.2 % (0-6); HEMOGLOBIN 11.5 g/dl (12.0-16.0); LYMPHOCYTES # (AUTO) 0.7 X10'3 (1.1-4.8); LYMPHOCYTES % (AUTO) 6.2 % (21-51); MEAN CORPUSCULAR HEMOGLOBIN 31.3 PG (27.0-31.0); MEAN CORPUSCULAR HGB CONC 34.8 % (33.0-36.5); MEAN CORPUSCULAR VOLUME 89.9 FL (78-98); MEAN PLATELET VOLUME 6.9 FL (7.4-10.4); MONOCYTES # (AUTO) 0.7 X10'3 (0-0.9); MONOCYTES % (AUTO) 6.5 % (2-12); NEUTROPHILS % (AUTO) 86.1 % (42-75); PLATELET COUNT 204 X10'3 (140-440); RED BLOOD COUNT 3.67 X10'6 (4.20-5.60); RED CELL DISTRIBUTION WIDTH 15.4 % (11.5-14.5); WHITE BLOOD COUNT 10.5 X10'3 (4.5-11.0)
[2018-01-12 05:30] VITALS: BP 130/72
[2018-01-12] MEDS: budesonide 0.5mg/2ml UD nebule IH SCH ×2 (06:49→19:44)
[2018-01-12] MEDS: ipratropium/albuterol 3ml nebule NEB SCH ×4 (06:49→23:00)
[2018-01-12] MEDS: dabigatran 150mg capsule PO SCH ×2 (07:18→20:30)
[2018-01-12] MEDS: montelukast 10mg tablet PO SCH (07:18)
[2018-01-12] MEDS: guaiFENesin ER 600mg tablet PO SCH ×2 (07:18→20:29)
[2018-01-12] MEDS: lisinopril 2.5mg tablet PO SCH (07:19)
[2018-01-12] MEDS: sertraline 50mg tablet PO SCH ×2 (07:19→20:31)
[2018-01-12] MEDS: azithromycin 250mg tablet PO SCH (07:19)
[2018-01-12] MEDS: magnesium oxide 400mg tablet PO SCH ×2 (07:19→20:29)
[2018-01-12] MEDS: lactobacillus rhamnosus 10,000 MMU CELLS/CAPSULE PO SCH ×2 (07:19→20:31)
[2018-01-12] MEDS: carVEDilol 3.125mg tablet PO SCH ×2 (07:19→20:29)
[2018-01-12] MEDS: aspirin 81mg tablet.DR PO SCH (07:19)
[2018-01-12] MEDS: levoTHYROXINE 100mcg tablet PO SCH (07:19)
[2018-01-12] MEDS: digoxin 250mcg (0.25mg) tablet PO SCH (07:20)
[2018-01-12] MEDS: CefTRIAXone/D5W-Rocephin 1gm 50 ML IV SCH (07:20)
[2018-01-12] MEDS: K and/or MAG REPLACEMENT MC SCH (07:31)
[2018-01-12] MEDS: potassium Cl 20 mEq SR tablet PO SCH ×2 (07:31→16:43)
[2018-01-12] MEDS: ipratropium/albuterol 3ml nebule NEB PRN (10:24)
[2018-01-12 11:00] VITALS: BP 122/72
[2018-01-12] MEDS: predniSONE 20 mg tablet PO SCH (12:30)
[2018-01-12 15:00] VITALS: BP 128/73
[2018-01-12 18:00] VITALS: BP 129/63
[2018-01-12] MEDS: Melatonin 3mg tablet PO PRN (20:28)
[2018-01-12 23:30] VITALS: BP 141/75
[2018-01-13] VITALS (9 sets, daily range): BP systolic 116–183; BP diastolic 57–118
[2018-01-13] MEDS ORDERED: VANCOMYCIN LEVEL IV ONE ×2 (00:30→10:30)
[2018-01-13] MEDS: vancomycin/NS 1 GM ADD-VANTAGE 250 ML IV SCH ×2 (00:34→13:00)
[2018-01-13 01:10] LABS: BASOPHILS # (AUTO) 0.1 X10'3 (0-0.2); BASOPHILS % (AUTO) 1.2 % (0-1); EOSINOPHILS % (AUTO) 0 % (0-6); HEMOGLOBIN 11.6 g/dl (12.0-16.0); LYMPHOCYTES # (AUTO) 0.8 X10'3 (1.1-4.8); LYMPHOCYTES % (AUTO) 7.4 % (21-51); MEAN CORPUSCULAR HEMOGLOBIN 31.2 PG (27.0-31.0); MEAN CORPUSCULAR HGB CONC 35.1 % (33.0-36.5); MEAN CORPUSCULAR VOLUME 88.8 FL (78-98); MEAN PLATELET VOLUME 7.3 FL (7.4-10.4); MONOCYTES # (AUTO) 0.8 X10'3 (0-0.9); MONOCYTES % (AUTO) 7.6 % (2-12); NEUTROPHILS # (AUTO) 9.4 X10'3 (1.8-7.7); NEUTROPHILS % (AUTO) 83.8 % (42-75); PLATELET COUNT 210 X10'3 (140-440); RED BLOOD COUNT 3.72 X10'6 (4.20-5.60); RED CELL DISTRIBUTION WIDTH 14.2 % (11.5-14.5); WHITE BLOOD COUNT 11.1 X10'3 (4.5-11.0)
[2018-01-13 01:24] LABS: ANION GAP 11 (8-16); BLOOD UREA NITROGEN 29 MG/DL (7-18); BUN/CREATININE RATIO 26.6 (6.6-38.0); CALCIUM 8.9 MG/DL (8.5-10.1); CHLORIDE 106 MMOL/L (99-107); CREATININE 1.09 MG/DL (0.40-0.90); GLUCOSE 120 MG/DL (70-104); POTASSIUM 4.3 MMOL/L (3.5-5.1); SODIUM 142 MMOL/L (135-145); TOTAL CARBON DIOXIDE 25.5 MMOL/L (24-32); VANCOMYCIN,TROUGH 14.1 UG/ML (6.0-14.0); eGFR 49 ML/MIN
[2018-01-13] MEDS: ipratropium/albuterol 3ml nebule NEB SCH ×5 (07:09→23:17)
[2018-01-13] MEDS: budesonide 0.5mg/2ml UD nebule IH SCH ×2 (07:10→19:35)
[2018-01-13] MEDS: K and/or MAG REPLACEMENT MC SCH (08:00)
[2018-01-13] MEDS ORDERED: predniSONE 20 mg tablet PO SCH (08:00)
[2018-01-13] MEDS: carVEDilol 3.125mg tablet PO SCH ×2 (08:51→19:13)
[2018-01-13] MEDS: lisinopril 2.5mg tablet PO SCH (08:51)
[2018-01-13] MEDS: potassium Cl 20 mEq SR tablet PO SCH ×2 (08:51→18:03)
[2018-01-13] MEDS: guaiFENesin ER 600mg tablet PO SCH ×2 (08:51→19:13)
[2018-01-13] MEDS: azithromycin 250mg tablet PO SCH (08:51)
[2018-01-13] MEDS: levoTHYROXINE 100mcg tablet PO SCH (08:51)
[2018-01-13] MEDS: aspirin 81mg tablet.DR PO SCH (08:51)
[2018-01-13] MEDS: lactobacillus rhamnosus 10,000 MMU CELLS/CAPSULE PO SCH ×2 (08:51→19:13)
[2018-01-13] MEDS: montelukast 10mg tablet PO SCH (08:52)
[2018-01-13] MEDS: digoxin 250mcg (0.25mg) tablet PO SCH (08:52)
[2018-01-13] MEDS: sertraline 50mg tablet PO SCH ×2 (08:52→19:13)
[2018-01-13] MEDS: magnesium oxide 400mg tablet PO SCH ×2 (08:52→19:13)
[2018-01-13] MEDS: CefTRIAXone/D5W-Rocephin 1gm 50 ML IV SCH (08:53)
[2018-01-13] MEDS: nitroGLYCERIN 0.4mg SUBLingual tab SL PRN ×3 (09:59→10:45)
[2018-01-13] MEDS ORDERED: mag hydrox/Alum hydrox/simeth 30ml oral suspension PO PRN (10:35)
[2018-01-13] MEDS ORDERED: nitroGLYCERIN 0.4mg SUBLingual tab SL PRN (10:40)
[2018-01-13] MEDS ORDERED: nitroGLYCERIN-Tridil 50MG/D5W 250 ML IV PRN (10:45)
[2018-01-13] MEDS: pantoprazole 40mg Tablet.DR PO SCH (10:47)
[2018-01-13] MEDS: dabigatran 150mg capsule PO SCH (10:47)
[2018-01-13] MEDS ORDERED: morphine 4 MG/ML inj SYRINge ONE (10:52)
[2018-01-13] MEDS ORDERED: morphine 4 MG/ML inj SYRINge IV ONE (10:55)
[2018-01-13] MEDS: normal saline 1000ml 1,000 ML IV SCH (10:57)
[2018-01-13] MEDS ORDERED: morphine 4 MG/ML inj SYRINge IV PRN (12:15)
[2018-01-13] MEDS ORDERED: aspirin 81mg tab.chew PO ONE (12:15)
[2018-01-13 12:16] LABS: ABG BASE EXCESS 0.2 mmol/L (-2.0-3.0); ABG HCO3 26.3 mmol/L (22.0-26.0); ABG OXYGEN SATURATION 94.1 % (95-98); ABG PCO2 (T) 48.6 mmHg (32.0-45.0); ABG PH (T) 7.352 (7.350-7.450); ABG PO2 (T) 76.3 mmHg (83-108); ALLEN'S TEST Positive; FCOHb 0.3 % (0.5-1.5); FLOW 4 L/min; FMetHb 0.2 % (0.3-1.12); FO2Hb 93.6 % (94-100); TOTAL HEMOGLOBIN 14.1 G/dl (12.0-16.0)
[2018-01-13] MEDS ORDERED: LORazepam 2 mg/ml vial IV PRN (12:30)
[2018-01-13] MEDS: predniSONE 20 mg tablet PO SCH (14:00)
[2018-01-13] MEDS: methylPREDNISolone sod succ 125mg/2ml vial IV SCH ×2 (14:40→19:13)
[2018-01-13] MEDS: ipratropium/albuterol 3ml nebule NEB PRN (16:12)
[2018-01-14] VITALS (9 sets, daily range): BP systolic 121–138; BP diastolic 53–79
[2018-01-14] MEDS: vancomycin/NS 1 GM ADD-VANTAGE 250 ML IV SCH ×2 (00:54→13:54)
[2018-01-14] MEDS: normal saline 1000ml 1,000 ML IV SCH ×2 (00:54→15:21)
[2018-01-14] MEDS: methylPREDNISolone sod succ 125mg/2ml vial IV SCH ×4 (02:32→19:46)
[2018-01-14 05:38] LABS: BASOPHILS % (AUTO) 0.1 % (0-1); EOSINOPHILS # (AUTO) 0.2 X10'3 (0-0.9); EOSINOPHILS % (AUTO) 1.6 % (0-6); HEMATOCRIT 31.8 % (35.0-45.0); LYMPHOCYTES # (AUTO) 0.5 X10'3 (1.1-4.8); MEAN CORPUSCULAR HEMOGLOBIN 31.3 PG (27.0-31.0); MEAN CORPUSCULAR HGB CONC 34.5 % (33.0-36.5); MEAN CORPUSCULAR VOLUME 90.8 FL (78-98); MEAN PLATELET VOLUME 6.7 FL (7.4-10.4); MONOCYTES # (AUTO) 0.3 X10'3 (0-0.9); MONOCYTES % (AUTO) 2.7 % (2-12); NEUTROPHILS % (AUTO) 90.6 % (42-75); PLATELET COUNT 234 X10'3 (140-440); RED BLOOD COUNT 3.51 X10'6 (4.20-5.60); RED CELL DISTRIBUTION WIDTH 15.7 % (11.5-14.5); WHITE BLOOD COUNT 9.9 X10'3 (4.5-11.0)
[2018-01-14 06:33] LABS: ALBUMIN 2.8 G/DL (3.4-5.0); ANION GAP 11 (8-16); BLOOD UREA NITROGEN 22 MG/DL (7-18); BUN/CREATININE RATIO 24.2 (6.6-38.0); CALCIUM 8.3 MG/DL (8.5-10.1); CHLORIDE 110 MMOL/L (99-107); CREATININE 0.91 MG/DL (0.40-0.90); GLUCOSE 128 MG/DL (70-104); POTASSIUM 4.7 MMOL/L (3.5-5.1); SODIUM 145 MMOL/L (135-145); TOTAL CARBON DIOXIDE 24.5 MMOL/L (24-32); eGFR 60 ML/MIN
[2018-01-14] MEDS: ipratropium/albuterol 3ml nebule NEB SCH ×5 (07:09→23:02)
[2018-01-14] MEDS: budesonide 0.5mg/2ml UD nebule IH SCH ×2 (07:09→19:36)
[2018-01-14] MEDS: pantoprazole 40mg Tablet.DR PO SCH (07:30)
[2018-01-14] MEDS: potassium Cl 20 mEq SR tablet PO SCH ×2 (07:47→17:36)
[2018-01-14] MEDS: sertraline 50mg tablet PO SCH ×2 (07:47→19:47)
[2018-01-14] MEDS: guaiFENesin ER 600mg tablet PO SCH ×2 (07:47→19:47)
[2018-01-14] MEDS: lisinopril 2.5mg tablet PO SCH (07:48)
[2018-01-14] MEDS: magnesium oxide 400mg tablet PO SCH ×2 (07:48→19:46)
[2018-01-14] MEDS: montelukast 10mg tablet PO SCH (07:48)
[2018-01-14] MEDS: lactobacillus rhamnosus 10,000 MMU CELLS/CAPSULE PO SCH ×2 (07:48→19:47)
[2018-01-14] MEDS: aspirin 325mg tablet PO SCH (07:48)
[2018-01-14] MEDS: levoTHYROXINE 100mcg tablet PO SCH (07:48)
[2018-01-14] MEDS: K and/or MAG REPLACEMENT MC SCH (08:00)
[2018-01-14] MEDS: CefTRIAXone/D5W-Rocephin 1gm 50 ML IV SCH (08:14)
[2018-01-14] MEDS: carVEDilol 3.125mg tablet PO SCH ×2 (08:15→19:47)
[2018-01-14] MEDS: digoxin 250mcg (0.25mg) tablet PO SCH (08:16)
[2018-01-14] MEDS: predniSONE 20 mg tablet PO SCH (14:00)
[2018-01-14] MEDS ORDERED: aspirin 325mg tablet PO ONE (14:05)
[2018-01-14] MEDS: SYMBICORT 160/4.5 INHALER IH SCH (23:01)
[2018-01-15] VITALS (16 sets, daily range): BP systolic 116–157; BP diastolic 67–86
[2018-01-15] MEDS ORDERED: VANCOMYCIN LEVEL IV ONE (00:30)
[2018-01-15 01:21] LABS: BASOPHILS % (AUTO) 0.1 % (0-1); EOSINOPHILS % (AUTO) 0 % (0-6); HEMATOCRIT 29.4 % (35.0-45.0); HEMOGLOBIN 10.1 g/dl (12.0-16.0); LYMPHOCYTES # (AUTO) 0.5 X10'3 (1.1-4.8); LYMPHOCYTES % (AUTO) 5.5 % (21-51); MEAN CORPUSCULAR HEMOGLOBIN 30.9 PG (27.0-31.0); MEAN CORPUSCULAR HGB CONC 34.3 % (33.0-36.5); MEAN CORPUSCULAR VOLUME 90.1 FL (78-98); MEAN PLATELET VOLUME 7.1 FL (7.4-10.4); MONOCYTES # (AUTO) 0.3 X10'3 (0-0.9); MONOCYTES % (AUTO) 3.3 % (2-12); NEUTROPHILS # (AUTO) 8.5 X10'3 (1.8-7.7); NEUTROPHILS % (AUTO) 91.1 % (42-75); PLATELET COUNT 229 X10'3 (140-440); RED BLOOD COUNT 3.26 X10'6 (4.20-5.60); RED CELL DISTRIBUTION WIDTH 14.3 % (11.5-14.5); WHITE BLOOD COUNT 9.3 X10'3 (4.5-11.0)
[2018-01-15] MEDS: vancomycin/NS 1 GM ADD-VANTAGE 250 ML IV SCH ×2 (01:22→13:15)
[2018-01-15] MEDS: methylPREDNISolone sod succ 125mg/2ml vial IV SCH ×4 (01:27→20:00)
[2018-01-15 01:34] LABS: ALBUMIN 2.5 G/DL (3.4-5.0); ANION GAP 8 (8-16); BLOOD UREA NITROGEN 22 MG/DL (7-18); BUN/CREATININE RATIO 24.7 (6.6-38.0); CHLORIDE 110 MMOL/L (99-107); CREATININE 0.89 MG/DL (0.40-0.90); GLUCOSE 136 MG/DL (70-104); POTASSIUM 4.4 MMOL/L (3.5-5.1); SODIUM 142 MMOL/L (135-145); TOTAL CARBON DIOXIDE 24.5 MMOL/L (24-32); eGFR 62 ML/MIN
[2018-01-15 01:47] LABS: VANCOMYCIN,TROUGH 20.5 UG/ML (6.0-14.0)
[2018-01-15] MEDS ORDERED: VANCOMYCIN 750MG IV in NS 250 ML IV SCH (02:11)
[2018-01-15] MEDS: normal saline 1000ml 1,000 ML IV SCH ×2 (05:17→19:57)
[2018-01-15] MEDS: ipratropium/albuterol 3ml nebule NEB SCH ×5 (07:28→22:58)
[2018-01-15] MEDS: budesonide 0.5mg/2ml UD nebule IH SCH ×2 (07:29→19:34)
[2018-01-15] MEDS: CefTRIAXone/D5W-Rocephin 1gm 50 ML IV SCH (07:31)
[2018-01-15] MEDS: montelukast 10mg tablet PO SCH (07:32)
[2018-01-15] MEDS: levoTHYROXINE 100mcg tablet PO SCH (07:32)
[2018-01-15] MEDS: pantoprazole 40mg Tablet.DR PO SCH (07:32)
[2018-01-15] MEDS: lactobacillus rhamnosus 10,000 MMU CELLS/CAPSULE PO SCH ×2 (07:32→21:03)
[2018-01-15] MEDS: atorvastatin 20mg tablet PO SCH (07:32)
[2018-01-15] MEDS: sertraline 50mg tablet PO SCH ×2 (07:32→21:06)
[2018-01-15] MEDS: carVEDilol 3.125mg tablet PO SCH ×2 (07:32→21:03)
[2018-01-15] MEDS: lisinopril 2.5mg tablet PO SCH (07:32)
[2018-01-15] MEDS: digoxin 250mcg (0.25mg) tablet PO SCH (07:33)
[2018-01-15] MEDS: magnesium oxide 400mg tablet PO SCH ×2 (08:00→21:04)
[2018-01-15] MEDS: guaiFENesin ER 600mg tablet PO SCH ×2 (08:00→21:04)
[2018-01-15] MEDS: K and/or MAG REPLACEMENT MC SCH (08:00)
[2018-01-15] MEDS: dabigatran 150mg capsule PO SCH ×2 (08:00→20:00)
[2018-01-15] MEDS: potassium Cl 20 mEq SR tablet PO SCH ×2 (08:30→17:21)
[2018-01-15] MEDS ORDERED: aspirin 325mg tablet PO SCH (08:30)
[2018-01-15] MEDS: aspirin 325mg tablet PO SCH (08:30)
[2018-01-15] MEDS ORDERED: LIDOcaine 1%/PF (10mg/ml) 5ml vial ONE (08:39)
[2018-01-15] MEDS ORDERED: iohexol 350MG/ML 100ml bottle IV ONE (08:39)
[2018-01-15] MEDS ORDERED: midazolam 2 mg/2 ml injection ONE (08:59)
[2018-01-15] MEDS ORDERED: fentaNYL/PF 50MCG/1 ML 2ML syringe ONE (08:59)
[2018-01-15] MEDS: SYMBICORT 160/4.5 INHALER IH SCH ×2 (09:00→19:35)
[2018-01-15] MEDS ORDERED: proCHLORperazine 10 MG/2 ml inj IV PRN (10:35)
[2018-01-15] MEDS ORDERED: HYDROcodone/acetaminophen 10/325mg tab PO PRN ×2 (10:35)
[2018-01-15] MEDS ORDERED: OXAZEpam 15mg capsule PO PRN (10:35)
[2018-01-15] MEDS ORDERED: ondansetron/PF 4mg/2ml inj IV PRN (10:35)
[2018-01-15] MEDS: predniSONE 20 mg tablet PO SCH (13:15)
[2018-01-15] MEDS: Melatonin 3mg tablet PO PRN (21:06)
[2018-01-16] MEDS: methylPREDNISolone sod succ 125mg/2ml vial IV SCH ×3 (02:13→14:03)
[2018-01-16] MEDS: vancomycin/NS 1 GM ADD-VANTAGE 250 ML IV SCH ×2 (02:14→14:03)
[2018-01-16 03:00] VITALS: BP 146/79
[2018-01-16 05:41] LABS: CHOL/HDL RATIO 2.8 (0.00-4.99); CHOLESTEROL 95 MG/DL (0-200); HDL CHOLESTEROL 34 MG/DL (35-60); LDL CHOLESTEROL 50 MG/DL (50-100); TRIGLYCERIDES 102 MG/DL (20-135)
[2018-01-16 06:59] VITALS: BP 150/78
[2018-01-16] MEDS: K and/or MAG REPLACEMENT MC SCH (08:00)
[2018-01-16] MEDS: budesonide 0.5mg/2ml UD nebule IH SCH (08:00)
[2018-01-16] MEDS: dabigatran 150mg capsule PO SCH (08:00)
[2018-01-16] MEDS: CefTRIAXone/D5W-Rocephin 1gm 50 ML IV SCH (08:00)
[2018-01-16] MEDS: atorvastatin 20mg tablet PO SCH (09:13)
[2018-01-16] MEDS: aspirin 325mg tablet PO SCH (09:13)
[2018-01-16] MEDS: montelukast 10mg tablet PO SCH (09:13)
[2018-01-16] MEDS: sertraline 50mg tablet PO SCH (09:13)
[2018-01-16] MEDS: lisinopril 2.5mg tablet PO SCH (09:13)
[2018-01-16] MEDS: levoTHYROXINE 100mcg tablet PO SCH (09:14)
[2018-01-16] MEDS: potassium Cl 20 mEq SR tablet PO SCH (09:14)
[2018-01-16] MEDS: guaiFENesin ER 600mg tablet PO SCH (09:14)
[2018-01-16] MEDS: carVEDilol 3.125mg tablet PO SCH (09:14)
[2018-01-16] MEDS: lactobacillus rhamnosus 10,000 MMU CELLS/CAPSULE PO SCH (09:14)
[2018-01-16] MEDS: pantoprazole 40mg Tablet.DR PO SCH (09:14)
[2018-01-16] MEDS: magnesium oxide 400mg tablet PO SCH (09:14)
[2018-01-16] MEDS: digoxin 250mcg (0.25mg) tablet PO SCH (09:15)
[2018-01-16] MEDS: ipratropium/albuterol 3ml nebule NEB SCH ×3 (09:19→15:38)
[2018-01-16] MEDS: normal saline 1000ml 1,000 ML IV SCH (10:39)
[2018-01-16 11:00] VITALS: BP 134/73
[2018-01-16 11:07] LABS: ALBUMIN 2.6 G/DL (3.4-5.0); ANION GAP 12 (8-16); BLOOD UREA NITROGEN 24 MG/DL (7-18); BUN/CREATININE RATIO 26.7 (6.6-38.0); CALCIUM 8.4 MG/DL (8.5-10.1); CHLORIDE 109 MMOL/L (99-107); GLUCOSE 137 MG/DL (70-104); POTASSIUM 4.1 MMOL/L (3.5-5.1); SODIUM 142 MMOL/L (135-145); TOTAL CARBON DIOXIDE 21.2 MMOL/L (24-32); eGFR 61 ML/MIN
[2018-01-16] MEDS: predniSONE 20 mg tablet PO SCH (14:00)
[2018-01-16 15:00] VITALS: BP 138/67
[2018-01-16] MEDS ORDERED: IPRA3AMP9 NEB (15:31)
[2018-01-17] MEDS ORDERED: VANCOMYCIN LEVEL IV ONE (00:30)
== END 2018-01-16 17:30 | disposition home health service (06) | DRG 280 ==
LOC: ER 18:52 → ED HOLD 21:26 → EDBEDREQ 01-10 05:49 → PCU 3S 01-10 09:22 → MED 3N 01-12 23:15 → PCU 3S 01-13 11:14
PROVIDERS: ADMIT Family Medicine; ATTEND Family Medicine
PROC: 4A02XM4 Measurement of Cardiac Total Activity, External Approach (ICD-10-PCS; principal; 2018-01-11)
PROC: 3E073KZ Introduction of Other Diagnostic Substance into Coronary Artery, Percutaneous Approach (ICD-10-PCS; 2018-01-11)
PROC: 4A023N7 Measurement of Cardiac Sampling and Pressure, Left Heart, Percutaneous Approach (ICD-10-PCS; 2018-01-15)
PROC: B2111ZZ Fluoroscopy of Multiple Coronary Arteries using Low Osmolar Contrast (ICD-10-PCS; 2018-01-15)
PROC: B2151ZZ Fluoroscopy of Left Heart using Low Osmolar Contrast (ICD-10-PCS; 2018-01-15)
DX: I21.4 Non-ST elevation (NSTEMI) myocardial infarction (principal); J18.9 Pneumonia, unspecified organism; N17.9 Acute kidney failure, unspecified; J96.02 Acute respiratory failure with hypercapnia; J96.01 Acute respiratory failure with hypoxia; I13.0 Hypertensive heart and chronic kidney disease with heart failure and stage 1 through stage 4 chronic kidney disease, or unspecified chronic kidney disease; I50.22 Chronic systolic (congestive) heart failure; I42.9 Cardiomyopathy, unspecified; I48.92 Unspecified atrial flutter; I48.2 Chronic atrial fibrillation; J44.0 Chronic obstructive pulmonary disease with (acute) lower respiratory infection; J44.1 Chronic obstructive pulmonary disease with (acute) exacerbation; N18.9 Chronic kidney disease, unspecified; E03.9 Hypothyroidism, unspecified; F32.9 Major depressive disorder, single episode, unspecified; I25.10 Atherosclerotic heart disease of native coronary artery without angina pectoris; I45.10 Unspecified right bundle-branch block; I67.9 Cerebrovascular disease, unspecified; Z60.2 Problems related to living alone; Z90.710 Acquired absence of both cervix and uterus; Z90.49 Acquired absence of other specified parts of digestive tract; Z95.810 Presence of automatic (implantable) cardiac defibrillator; Z88.2 Allergy status to sulfonamides; Z88.1 Allergy status to other antibiotic agents; Z79.899 Other long term (current) drug therapy; Z79.01 Long term (current) use of anticoagulants; Z79.82 Long term (current) use of aspirin; Z86.73 Personal history of transient ischemic attack (TIA), and cerebral infarction without residual deficits; Z86.74 Personal history of sudden cardiac arrest; Z87.891 Personal history of nicotine dependence; Z82.5 Family history of asthma and other chronic lower respiratory diseases; Z80.9 Family history of malignant neoplasm, unspecified; Z82.49 Family history of ischemic heart disease and other diseases of the circulatory system
CPT/HCPCS: 36415; 36600; 71045; 74018; 74176; 78451; 80048; 80053; 80061; 80162; 80202; 82803; 83036; 83605; 83735; 83880; 84145; 84443; 84484; 85018; 85025; 85610; 85730; 87040; 87070; 87502; 87503; 93005; 93017; 93306; 93458; 94640; 94668; 94760; 96365; 97110; 97116; 97161; 97530; 99152; 99153; 99285; A4620; A6257; A6258; A9500; C1769; J0171; J0280; J0282; J0456; J0696; J1644; J1940; J2001; J2250; J2270; J2405; J2785; J2930; J3010; J3370; J3475; J3480; J3490; J7030; J7512; J7626; Q9967

== ENCOUNTER 2018-02-07 15:52 | Emergency (ER) | payer MEDICARE, OTHER ==
[~2018-02-07] VITALS: Ht 160 cm; Wt 63.0 kg
[~2018-02-07 15:52] MED LIST changes: +IPRA3AMP9 NEB; -MECL25TA3 PO; -amiodarone 50MG/ML inj IV ONE; -epiNEPHrine 0.1mg/ml 10ml syringe ONE; -sodium chloride 0.9% 10ml vial - diluent IJ ONE
[2018-02-07 16:33] LABS: BASOPHILS # (AUTO) 0.1 X10'3 (0-0.2); EOSINOPHILS # (AUTO) 0.2 X10'3 (0-0.9); EOSINOPHILS % (AUTO) 3.4 % (0-6); HEMATOCRIT 40.9 % (35.0-45.0); HEMOGLOBIN 14.3 g/dl (12.0-16.0); LYMPHOCYTES # (AUTO) 1.5 X10'3 (1.1-4.8); LYMPHOCYTES % (AUTO) 21.1 % (21-51); MEAN CORPUSCULAR HEMOGLOBIN 30.8 PG (27.0-31.0); MEAN CORPUSCULAR HGB CONC 35.1 % (33.0-36.5); MEAN CORPUSCULAR VOLUME 87.8 FL (78-98); MEAN PLATELET VOLUME 7.3 FL (7.4-10.4); MONOCYTES # (AUTO) 0.7 X10'3 (0-0.9); MONOCYTES % (AUTO) 9.2 % (2-12); NEUTROPHILS # (AUTO) 4.7 X10'3 (1.8-7.7); NEUTROPHILS % (AUTO) 65.3 % (42-75); PLATELET COUNT 262 X10'3 (140-440); RED BLOOD COUNT 4.66 X10'6 (4.20-5.60); RED CELL DISTRIBUTION WIDTH 16.5 % (11.5-14.5); WHITE BLOOD COUNT 7.2 X10'3 (4.5-11.0)
[2018-02-07 16:43] LABS: INR 1.6 INR; PARTIAL THROMBOPLASTIN TIME 52 SECONDS (22-32); PROTHROMBIN TIME 16.1 SECONDS (9.0-12.0)
[2018-02-07 16:48] LABS: ALANINE AMINOTRANSFERASE 13 U/L (12-78); ALBUMIN 3.6 G/DL (3.4-5.0); ALKALINE PHOSPHATASE 119 IU/L (46-116); ANION GAP 11 (8-16); ASPARTATE AMINO TRANSFERASE 20 U/L (10-37); BILIRUBIN,TOTAL 0.9 MG/DL (0.1-1.0); BLOOD UREA NITROGEN 14 MG/DL (7-18); CALCIUM 9.7 MG/DL (8.5-10.1); CHLORIDE 103 MMOL/L (99-107); CREATININE 1.76 MG/DL (0.40-0.90); GLUCOSE 123 MG/DL (70-104); POTASSIUM 3.8 MMOL/L (3.5-5.1); SODIUM 139 MMOL/L (135-145); TOTAL CARBON DIOXIDE 24.6 MMOL/L (24-32); TOTAL PROTEIN 7.2 G/DL (6.4-8.2); eGFR 28 ML/MIN
[2018-02-07] MEDS ORDERED: normal saline 1000ML IV soln IVB ONE (16:50)
[2018-02-07] MEDS ORDERED: ondansetron/PF 4mg/2ml inj IV ONE (16:50)
[2018-02-07] MEDS ORDERED: pantoprazole 40 MG vial IV ONE (16:50)
[2018-02-07 17:09] LABS: CLARITY,URINE SLIGHTLY CLOUDY (Clear); COLOR,URINE YELLOW (Yellow); GLUCOSE, URINE NEGATIVE (Neg); KETONES,URINE NEGATIVE (Neg); LEUKOCYTE ESTERASE ,URINE SMALL (Neg); NITRITES, URINE NEGATIVE (Neg); OCCULT BLOOD,URINE NEGATIVE (Neg); PH,URINE 5.5 (4.8-8.0); PROTEIN,URINE NEGATIVE (Neg); UROBILINOGEN,URINE 0.2 E.U/dL (0.2-1.0)
[2018-02-07 17:17] LABS: UA COLLECTION TYPE STRAIGHT CATH
[2018-02-07 17:21] LABS: LIPASE 84 U/L (73-393)
[2018-02-07 17:55] LABS: BACTERIA,URINE FEW /HPF (Neg); MUCUS STRANDS FEW /LPF (Neg); RBC,URINE NONE SEEN /HPF (0-2); SQUAMOUS EPITHELIAL CELL,UR FEW /LPF (FEW)
[2018-02-07] MEDS ORDERED: ONDA8TAB13 PO (20:33)
[2018-02-07] MEDS ORDERED: PANT-47 PO (20:33)
[2018-02-07 21:38] VITALS: BP 110/56
== END 2018-02-07 21:47 | disposition home or self-care (01) ==
LOC: ER 15:52
DX: R11.2 Nausea with vomiting, unspecified (principal); I10 Essential (primary) hypertension; I11.0 Hypertensive heart disease with heart failure; I50.9 Heart failure, unspecified; J44.9 Chronic obstructive pulmonary disease, unspecified; I48.91 Unspecified atrial fibrillation; Z86.73 Personal history of transient ischemic attack (TIA), and cerebral infarction without residual deficits; Z90.710 Acquired absence of both cervix and uterus; Z95.0 Presence of cardiac pacemaker; Z88.2 Allergy status to sulfonamides; Z88.1 Allergy status to other antibiotic agents; Z79.899 Other long term (current) drug therapy; Z60.2 Problems related to living alone
CPT/HCPCS: 36415; 71045; 80053; 81001; 83690; 84484; 85025; 85610; 85730; 87088; 93005; 96361; 96374; 96375; 99285; C9113; J2405; J7030

== ENCOUNTER 2018-09-17 15:02 | Inpatient (IN) | payer MEDICARE, OTHER ==
[~2018-09-17] VITALS: Ht 165.1 cm; Wt 50.2 kg
[~2018-09-17 15:02] MED LIST changes: +BUPR75TA12 PO; -DIGO250T PO; -FURO40TA4; +LACT-28 PO; -LISI10TA4; +LISI2.5T2 PO; +MAGN400C PO; +METO-395 PO; +ONDA8TAB13 PO; +PANT-47 PO; -POTA10CA69
[2018-09-17 15:33] LABS: BASOPHILS % (AUTO) 0.6 % (0-1); EOSINOPHILS # (AUTO) 1.5 X10'3 (0-0.9); HEMATOCRIT 40.6 % (35.0-45.0); HEMOGLOBIN 13.5 g/dl (12.0-16.0); LYMPHOCYTES # (AUTO) 1.7 X10'3 (1.1-4.8); LYMPHOCYTES % (AUTO) 21.7 % (21-51); MEAN CORPUSCULAR HEMOGLOBIN 30.6 PG (27.0-31.0); MEAN CORPUSCULAR HGB CONC 33.3 % (33.0-36.5); MEAN CORPUSCULAR VOLUME 91.8 FL (78-98); MEAN PLATELET VOLUME 7.1 FL (7.4-10.4); MONOCYTES # (AUTO) 0.5 X10'3 (0-0.9); MONOCYTES % (AUTO) 6.7 % (2-12); PLATELET COUNT 287 X10'3 (140-440); RED BLOOD COUNT 4.42 X10'6 (4.20-5.60); RED CELL DISTRIBUTION WIDTH 15.4 % (11.5-14.5); WHITE BLOOD COUNT 7.8 X10'3 (4.5-11.0)
[2018-09-17] MEDS ORDERED: methylPREDNISolone sod succ 125mg/2ml vial IV ONE (15:35)
[2018-09-17] MEDS ORDERED: ipratropium/albuterol 3ml nebule NEB ONE (15:35)
[2018-09-17] MEDS ORDERED: azithromycin/NS 500mg/250ml 250 ML IV ONE (15:35)
[2018-09-17 15:47] LABS: INR 1.3 INR; PARTIAL THROMBOPLASTIN TIME 51 SECONDS (22-32); PROTHROMBIN TIME 13.1 SECONDS (9.0-12.0)
[2018-09-17 15:48] LABS: ALANINE AMINOTRANSFERASE 17 U/L (12-78); ALBUMIN 3.7 G/DL (3.4-5.0); ALBUMIN/GLOBULIN RATIO 1.1 (1.1-1.5); ALKALINE PHOSPHATASE 123 IU/L (46-116); ANION GAP 9 (8-16); ASPARTATE AMINO TRANSFERASE 19 U/L (10-37); BLOOD UREA NITROGEN 11 MG/DL (7-18); BUN/CREATININE RATIO 12.8 (6.6-38.0); CALCIUM 9.8 MG/DL (8.5-10.1); CHLORIDE 105 MMOL/L (99-107); CREATININE 0.86 MG/DL (0.40-0.90); GLUCOSE 91 MG/DL (70-104); POTASSIUM 3.8 MMOL/L (3.5-5.1); SODIUM 141 MMOL/L (135-145); TOTAL CARBON DIOXIDE 27.3 MMOL/L (24-32); TOTAL PROTEIN 7.1 G/DL (6.4-8.2); eGFR 64 ML/MIN
[2018-09-17] MEDS ORDERED: furosemide 10 MG/1 ML 10ml inj IV ONE (18:20)
[2018-09-17] MEDS ORDERED: METO50TA7 PO (18:37)
[2018-09-17] MEDS ORDERED: ondansetron/PF 4mg/2ml inj IV PRN (19:40)
[2018-09-17] MEDS ORDERED: acetaminophen 325mg tablet PO PRN (19:40)
[2018-09-17] MEDS ORDERED: magnesium hydroxide 30ml (MOM) UD suspension PO PRN (19:40)
[2018-09-17] MEDS ORDERED: mag hydrox/Alum hydrox/simeth 30ml oral suspension PO PRN (19:40)
[2018-09-17] MEDS: dabigatran 150mg capsule PO SCH (20:13)
[2018-09-17] MEDS ORDERED: DIGO250T77 PO (20:16)
[2018-09-17] MEDS ORDERED: LISI10TA4 PO (20:16)
[2018-09-17] MEDS ORDERED: SERT100T10 PO (20:16)
[2018-09-17] MEDS ORDERED: lisinopril 2.5mg tablet PO SCH (21:00)
[2018-09-17 22:00] VITALS: BP 117/62
[2018-09-17] MEDS: ipratropium/albuterol 3ml nebule NEB SCH (22:59)
[2018-09-18] VITALS (7 sets, daily range): BP systolic 89–122; BP diastolic 46–55
[2018-09-18 06:23] LABS: BASOPHILS % (AUTO) 0.3 % (0-1); EOSINOPHILS % (AUTO) 0.9 % (0-6); HEMATOCRIT 36.7 % (35.0-45.0); HEMOGLOBIN 12.5 g/dl (12.0-16.0); LYMPHOCYTES # (AUTO) 0.6 X10'3 (1.1-4.8); MEAN CORPUSCULAR HEMOGLOBIN 31.3 PG (27.0-31.0); MEAN CORPUSCULAR HGB CONC 34.1 % (33.0-36.5); MEAN CORPUSCULAR VOLUME 91.7 FL (78-98); MEAN PLATELET VOLUME 7.7 FL (7.4-10.4); MONOCYTES # (AUTO) 0.1 X10'3 (0-0.9); MONOCYTES % (AUTO) 2.7 % (2-12); NEUTROPHILS # (AUTO) 2.7 X10'3 (1.8-7.7); NEUTROPHILS % (AUTO) 79.1 % (42-75); PLATELET COUNT 231 X10'3 (140-440); RED CELL DISTRIBUTION WIDTH 15.4 % (11.5-14.5); WHITE BLOOD COUNT 3.5 X10'3 (4.5-11.0)
[2018-09-18 06:35] LABS: ALANINE AMINOTRANSFERASE 17 U/L (12-78); ALBUMIN 3.3 G/DL (3.4-5.0); ALBUMIN/GLOBULIN RATIO 1.1 (1.1-1.5); ALKALINE PHOSPHATASE 110 IU/L (46-116); ANION GAP 11 (8-16); ASPARTATE AMINO TRANSFERASE 15 U/L (10-37); BILIRUBIN,TOTAL 0.8 MG/DL (0.1-1.0); BLOOD UREA NITROGEN 18 MG/DL (7-18); BUN/CREATININE RATIO 21.2 (6.6-38.0); CALCIUM 9.4 MG/DL (8.5-10.1); CHLORIDE 106 MMOL/L (99-107); CREATININE 0.85 MG/DL (0.40-0.90); GLUCOSE 137 MG/DL (70-104); POTASSIUM 3.8 MMOL/L (3.5-5.1); SODIUM 142 MMOL/L (135-145); TOTAL CARBON DIOXIDE 24.6 MMOL/L (24-32); TOTAL PROTEIN 6.4 G/DL (6.4-8.2); eGFR 65 ML/MIN
[2018-09-18] MEDS: ipratropium/albuterol 3ml nebule NEB SCH ×5 (06:57→23:00)
[2018-09-18] MEDS: levoTHYROXINE 100mcg tablet PO SCH (07:18)
[2018-09-18] MEDS: montelukast 10mg tablet PO SCH (07:18)
[2018-09-18] MEDS: sertraline 50mg tablet PO SCH (07:18)
[2018-09-18] MEDS: metoprolol succinate 25mg (24-HOUR) SR. Tablet PO SCH (07:18)
[2018-09-18] MEDS ORDERED: non-formulary drug (Metoprolol Succinate* (Toprol Xl*) 1 TAB) PO SCH (08:00)
[2018-09-18] MEDS: digoxin 250mcg (0.25mg) tablet PO SCH (08:00)
[2018-09-18] MEDS: furosemide 20 MG/2 ML vial IV SCH ×2 (12:48→19:33)
[2018-09-18] MEDS: dabigatran 150mg capsule PO SCH ×2 (12:48→19:33)
[2018-09-19 02:55] VITALS: BP 103/54
[2018-09-19 05:59] LABS: BASOPHILS % (AUTO) 0.8 % (0-1); EOSINOPHILS # (AUTO) 0.2 X10'3 (0-0.9); EOSINOPHILS % (AUTO) 3.1 % (0-6); HEMATOCRIT 35.1 % (35.0-45.0); HEMOGLOBIN 11.9 g/dl (12.0-16.0); LYMPHOCYTES # (AUTO) 1.8 X10'3 (1.1-4.8); LYMPHOCYTES % (AUTO) 34.5 % (21-51); MEAN CORPUSCULAR HEMOGLOBIN 31.4 PG (27.0-31.0); MEAN CORPUSCULAR VOLUME 92.3 FL (78-98); MEAN PLATELET VOLUME 7.6 FL (7.4-10.4); MONOCYTES # (AUTO) 0.4 X10'3 (0-0.9); MONOCYTES % (AUTO) 6.9 % (2-12); NEUTROPHILS # (AUTO) 2.9 X10'3 (1.8-7.7); NEUTROPHILS % (AUTO) 54.7 % (42-75); PLATELET COUNT 225 X10'3 (140-440); RED CELL DISTRIBUTION WIDTH 15.4 % (11.5-14.5); WHITE BLOOD COUNT 5.3 X10'3 (4.5-11.0)
[2018-09-19 06:00] VITALS: BP 98/45
[2018-09-19 06:25] LABS: ALANINE AMINOTRANSFERASE 16 U/L (12-78); ALBUMIN 3.4 G/DL (3.4-5.0); ALBUMIN/GLOBULIN RATIO 1.2 (1.1-1.5); ALKALINE PHOSPHATASE 94 IU/L (46-116); ANION GAP 9 (8-16); ASPARTATE AMINO TRANSFERASE 13 U/L (10-37); BILIRUBIN,TOTAL 0.5 MG/DL (0.1-1.0); BLOOD UREA NITROGEN 30 MG/DL (7-18); BUN/CREATININE RATIO 27.8 (6.6-38.0); CALCIUM 9.4 MG/DL (8.5-10.1); CHLORIDE 105 MMOL/L (99-107); CREATININE 1.08 MG/DL (0.40-0.90); GLUCOSE 88 MG/DL (70-104); POTASSIUM 3.6 MMOL/L (3.5-5.1); SODIUM 145 MMOL/L (135-145); TOTAL CARBON DIOXIDE 30.6 MMOL/L (24-32); TOTAL PROTEIN 6.2 G/DL (6.4-8.2); eGFR 49 ML/MIN
[2018-09-19] MEDS: levoTHYROXINE 100mcg tablet PO SCH (07:22)
[2018-09-19] MEDS: digoxin 250mcg (0.25mg) tablet PO SCH (07:22)
[2018-09-19] MEDS: dabigatran 150mg capsule PO SCH ×2 (07:22→19:51)
[2018-09-19] MEDS: montelukast 10mg tablet PO SCH (07:22)
[2018-09-19] MEDS: sertraline 50mg tablet PO SCH (07:22)
[2018-09-19] MEDS: furosemide 20 MG/2 ML vial IV SCH ×2 (07:22→19:51)
[2018-09-19] MEDS: metoprolol succinate 25mg (24-HOUR) SR. Tablet PO SCH (07:22)
[2018-09-19] MEDS: ipratropium/albuterol 3ml nebule NEB SCH ×5 (07:28→23:00)
[2018-09-19 11:00] VITALS: BP 100/42
[2018-09-19 15:00] VITALS: BP 108/44
[2018-09-19 19:00] VITALS: BP 111/67
[2018-09-19 22:41] VITALS: BP 101/43
[2018-09-20 03:00] VITALS: BP 110/54
[2018-09-20 06:00] VITALS: BP 118/67
[2018-09-20 06:06] LABS: BASOPHILS # (AUTO) 0.1 X10'3 (0-0.2); EOSINOPHILS # (AUTO) 0.7 X10'3 (0-0.9); EOSINOPHILS % (AUTO) 12.5 % (0-6); HEMATOCRIT 36.4 % (35.0-45.0); HEMOGLOBIN 12.3 g/dl (12.0-16.0); LYMPHOCYTES # (AUTO) 1.6 X10'3 (1.1-4.8); LYMPHOCYTES % (AUTO) 26.8 % (21-51); MEAN CORPUSCULAR HEMOGLOBIN 31.2 PG (27.0-31.0); MEAN CORPUSCULAR HGB CONC 33.9 % (33.0-36.5); MEAN CORPUSCULAR VOLUME 92.1 FL (78-98); MEAN PLATELET VOLUME 7.6 FL (7.4-10.4); MONOCYTES # (AUTO) 0.4 X10'3 (0-0.9); MONOCYTES % (AUTO) 6.9 % (2-12); NEUTROPHILS # (AUTO) 3.1 X10'3 (1.8-7.7); NEUTROPHILS % (AUTO) 52.8 % (42-75); PLATELET COUNT 245 X10'3 (140-440); RED BLOOD COUNT 3.95 X10'6 (4.20-5.60); RED CELL DISTRIBUTION WIDTH 15.2 % (11.5-14.5); WHITE BLOOD COUNT 5.9 X10'3 (4.5-11.0)
[2018-09-20] MEDS: digoxin 250mcg (0.25mg) tablet PO SCH (06:42)
[2018-09-20 06:55] LABS: ALANINE AMINOTRANSFERASE 14 U/L (12-78); ALBUMIN 3.5 G/DL (3.4-5.0); ALBUMIN/GLOBULIN RATIO 1.2 (1.1-1.5); ALKALINE PHOSPHATASE 99 IU/L (46-116); ANION GAP 8 (8-16); ASPARTATE AMINO TRANSFERASE 12 U/L (10-37); BILIRUBIN,TOTAL 0.5 MG/DL (0.1-1.0); BLOOD UREA NITROGEN 28 MG/DL (7-18); BUN/CREATININE RATIO 25.9 (6.6-38.0); CALCIUM 9.2 MG/DL (8.5-10.1); CHLORIDE 103 MMOL/L (99-107); CREATININE 1.08 MG/DL (0.40-0.90); GLUCOSE 79 MG/DL (70-104); POTASSIUM 3.6 MMOL/L (3.5-5.1); SODIUM 143 MMOL/L (135-145); TOTAL CARBON DIOXIDE 31.7 MMOL/L (24-32); TOTAL PROTEIN 6.4 G/DL (6.4-8.2); eGFR 49 ML/MIN
[2018-09-20] MEDS: ipratropium/albuterol 3ml nebule NEB SCH ×3 (07:00→15:30)
[2018-09-20] MEDS: furosemide 20 MG/2 ML vial IV SCH ×2 (07:23→07:32)
[2018-09-20] MEDS: levoTHYROXINE 100mcg tablet PO SCH (07:25)
[2018-09-20] MEDS: dabigatran 150mg capsule PO SCH (07:25)
[2018-09-20] MEDS: metoprolol succinate 25mg (24-HOUR) SR. Tablet PO SCH (07:25)
[2018-09-20] MEDS: montelukast 10mg tablet PO SCH (07:26)
[2018-09-20] MEDS: sertraline 50mg tablet PO SCH (07:26)
[2018-09-20] MEDS ORDERED: losartan 50mg tablet PO SCH (08:00)
[2018-09-20] MEDS ORDERED: digoxin 125mcg (0.125mg) tablet PO SCH (08:00)
[2018-09-20 11:00] VITALS: BP 98/49
[2018-09-20 15:00] VITALS: BP 94/41
[2018-09-20] MEDS ORDERED: DIGO125T5 PO (15:14)
[2018-09-20] MEDS ORDERED: FURO-150 PO (15:14)
[2018-09-20] MEDS ORDERED: BUDE10.22 INH (15:14)
[2018-09-20] MEDS ORDERED: LOSA50TA21 PO (15:14)
[2018-09-20] MEDS ORDERED: PRED10TA23 PO (15:14)
[2018-09-20] MEDS ORDERED: LEVO100T9 PO (15:14)
[2018-09-20] MEDS ORDERED: POTA10TA36 PO (15:14)
== END 2018-09-20 17:10 | disposition home health service (06) | DRG 291 ==
LOC: ER 15:03 → ED HOLD 19:37 → PCU 3S 21:40
PROVIDERS: ADMIT Internal Medicine; ATTEND Family Medicine
DX: I11.0 Hypertensive heart disease with heart failure (principal); J96.90 Respiratory failure, unspecified, unspecified whether with hypoxia or hypercapnia; J44.1 Chronic obstructive pulmonary disease with (acute) exacerbation; R64 Cachexia; Z68.1 Body mass index [BMI] 19.9 or less, adult; I48.0 Paroxysmal atrial fibrillation; I50.23 Acute on chronic systolic (congestive) heart failure; E03.9 Hypothyroidism, unspecified; F32.9 Major depressive disorder, single episode, unspecified; Z60.2 Problems related to living alone; D72.1 Eosinophilia; Z90.710 Acquired absence of both cervix and uterus; Z95.0 Presence of cardiac pacemaker; Z88.2 Allergy status to sulfonamides; Z88.1 Allergy status to other antibiotic agents; Z79.890 Hormone replacement therapy; Z79.01 Long term (current) use of anticoagulants; Z79.899 Other long term (current) drug therapy; Z86.73 Personal history of transient ischemic attack (TIA), and cerebral infarction without residual deficits; Z82.5 Family history of asthma and other chronic lower respiratory diseases; Z82.49 Family history of ischemic heart disease and other diseases of the circulatory system
CPT/HCPCS: 36415; 71045; 80053; 80162; 83880; 84443; 84484; 85025; 85610; 85730; 87070; 93005; 93306; 94640; 94760; 96365; 96366; 96375; 99285; G0378; J0456; J1940; J2930

== ENCOUNTER 2018-12-13 07:20 | Outpatient (CLI) | payer MEDICARE ==
[~2018-12-13] VITALS: Ht 167.6 cm; Wt 54.4 kg
[~2018-12-13 07:20] MED LIST changes: -BUDE10.22; +BUDE10.22 INH; -BUPR75TA12 PO; +DIGO125T5 PO; +FURO-150 PO; -LACT-28 PO; -LISI2.5T2 PO; +LOSA50TA64 PO; -MAGN400C PO; -METO-395 PO; +METO50TA7 PO; -ONDA8TAB13 PO; -PANT-47 PO; +POTA10TA36 PO
[2018-12-13 07:46] LABS: TOTAL HEMOGLOBIN 12.4 G/dl (12.0-16.0)
[2018-12-13] MEDS ORDERED: albuterol 2.5 MG/3 ML nebule NEB ONE (08:05)
== END 2018-12-13 23:59 | disposition home or self-care (01) ==
LOC: RT 07:20
PROVIDERS: ATTEND Specialist
DX: Z01.818 Encounter for other preprocedural examination (principal); J45.909 Unspecified asthma, uncomplicated; J44.9 Chronic obstructive pulmonary disease, unspecified; R06.09 Other forms of dyspnea; I11.0 Hypertensive heart disease with heart failure; I50.9 Heart failure, unspecified; Z90.710 Acquired absence of both cervix and uterus; Z79.899 Other long term (current) drug therapy
CPT/HCPCS: 85018; 94060; 94727; 94729; 94760

== ENCOUNTER 2019-01-14 11:57 | Emergency (ER) | payer MEDICARE ==
[~2019-01-14] VITALS: Ht 165.1 cm; Wt 55.0 kg
[2019-01-14] MEDS ORDERED: methylPREDNISolone sod succ 125mg/2ml vial IV ONE (12:10)
[2019-01-14] MEDS ORDERED: ipratropium/albuterol 3ml nebule NEB ONE ×2 (12:10→13:35)
[2019-01-14 12:55] LABS: BASOPHILS # (AUTO) 0.1 X10'3 (0-0.2); BASOPHILS % (AUTO) 0.9 % (0-1); EOSINOPHILS # (AUTO) 0.3 X10'3 (0-0.9); EOSINOPHILS % (AUTO) 4.8 % (0-6); HEMATOCRIT 39.8 % (35.0-45.0); HEMOGLOBIN 13.7 g/dl (12.0-16.0); LYMPHOCYTES # (AUTO) 1.4 X10'3 (1.1-4.8); LYMPHOCYTES % (AUTO) 22.8 % (21-51); MEAN CORPUSCULAR HEMOGLOBIN 31.6 PG (27.0-31.0); MEAN CORPUSCULAR HGB CONC 34.6 g/dL (33.0-36.5); MEAN CORPUSCULAR VOLUME 91.4 FL (78-98); MEAN PLATELET VOLUME 8.2 FL (7.4-10.4); MONOCYTES # (AUTO) 0.5 X10'3 (0-0.9); MONOCYTES % (AUTO) 8.2 % (2-12); NEUTROPHILS % (AUTO) 63.3 % (42-75); PLATELET COUNT 162 X10'3 (140-440); RED BLOOD COUNT 4.35 X10'6 (4.20-5.60); RED CELL DISTRIBUTION WIDTH 14.3 % (11.5-14.5); WHITE BLOOD COUNT 6.3 X10'3 (4.5-11.0)
[2019-01-14 13:04] LABS: INR 1.5 INR; PARTIAL THROMBOPLASTIN TIME 39 SECONDS (22-32); PROTHROMBIN TIME 14.5 SECONDS (9.0-12.0)
[2019-01-14 13:07] LABS: ALANINE AMINOTRANSFERASE 14 U/L (12-78); ALBUMIN 3.8 G/DL (3.4-5.0); ALBUMIN/GLOBULIN RATIO 1.3 (1.1-1.5); ALKALINE PHOSPHATASE 82 IU/L (46-116); ANION GAP 9 (8-16); ASPARTATE AMINO TRANSFERASE 15 U/L (10-37); BLOOD UREA NITROGEN 26 MG/DL (7-18); CALCIUM 9.4 MG/DL (8.5-10.1); CHLORIDE 105 MMOL/L (99-107); CREATININE 1.04 MG/DL (0.40-0.90); GLUCOSE 90 MG/DL (70-104); POTASSIUM 3.7 MMOL/L (3.5-5.1); SODIUM 143 MMOL/L (135-145); TOTAL CARBON DIOXIDE 28.7 MMOL/L (24-32); TOTAL PROTEIN 6.7 G/DL (6.4-8.2); eGFR 52 ML/MIN
[2019-01-14] MEDS ORDERED: PRED20TA PO (14:43)
[2019-01-14 15:06] VITALS: BP 142/65
== END 2019-01-14 15:08 | disposition home or self-care (01) ==
LOC: ER 11:57
DX: J44.1 Chronic obstructive pulmonary disease with (acute) exacerbation (principal); I11.0 Hypertensive heart disease with heart failure; I50.9 Heart failure, unspecified; Z86.73 Personal history of transient ischemic attack (TIA), and cerebral infarction without residual deficits; I48.91 Unspecified atrial fibrillation; Z90.710 Acquired absence of both cervix and uterus; Z95.0 Presence of cardiac pacemaker; Z88.2 Allergy status to sulfonamides; Z88.1 Allergy status to other antibiotic agents; Z91.010 Allergy to peanuts
CPT/HCPCS: 36415; 71045; 80053; 83880; 84484; 85025; 85610; 85730; 93005; 94640; 94760; 96374; 99284; J2930

== ENCOUNTER 2019-02-15 05:30 | Day surgery (SDC) | payer MEDICARE ==
[~2019-02-15] VITALS: Ht 165.1 cm; Wt 58.0 kg
[2019-02-15] VITALS (20 sets, daily range): BP systolic 97–141; BP diastolic 46–71
[~2019-02-15 05:30] MED LIST changes: +ATR0.5NEB NEB; -BUDE10.22 INH; -DIGO125T5 PO; +DOCUMENT DATE & TIME OF BETA-BLOCKER PO ONE; -FURO-150 PO; +FURO20TA4 PO; -IPRA3AMP9 NEB; -LEVO100T9 PO; +LEVO75TA PO; +LOSA25TA96 PO; -LOSA50TA64 PO; -POTA10TA36 PO; +VANCOMYCIN INJ 1000 MG in NORMAL SALINE 250ml IV.SOLN IV ONE; +albuterol 2.5 MG/3 ML nebule NEB ONE; +dextrose 5%-normal saline 1,000 ML IV SCH; +famotidine 20mg tablet PO ONE; +ringers solution, lacted 1,000 ML IV SCH
[2019-02-15] MEDS ORDERED: LIDOcaine 1% (10mg/ml) 2ml vial ONE (06:03)
[2019-02-15] MEDS ORDERED: CARV-50 PO (06:24)
[2019-02-15] MEDS ORDERED: gentamicin 40 MG/1 ML inj ONE (06:42)
[2019-02-15] MEDS ORDERED: ceFAZolin 1000mg inj ONE (06:42)
[2019-02-15] MEDS ORDERED: LIDOcaine 1% 30ml preserv. free vial ONE (06:42)
[2019-02-15] MEDS ORDERED: carVEDilol 12.5mg tablet PO STA (06:51)
[2019-02-15 06:53] LABS: BASOPHILS # (AUTO) 0.1 X10'3 (0-0.2); BASOPHILS % (AUTO) 1.1 % (0-1); EOSINOPHILS # (AUTO) 0.2 X10'3 (0-0.9); EOSINOPHILS % (AUTO) 4.2 % (0-6); LYMPHOCYTES # (AUTO) 1.4 X10'3 (1.1-4.8); LYMPHOCYTES % (AUTO) 29.1 % (21-51); MEAN CORPUSCULAR HEMOGLOBIN 32.3 PG (27.0-31.0); MEAN CORPUSCULAR HGB CONC 35.3 g/dL (33.0-36.5); MEAN CORPUSCULAR VOLUME 91.7 FL (78-98); MEAN PLATELET VOLUME 7.9 FL (7.4-10.4); MONOCYTES # (AUTO) 0.5 X10'3 (0-0.9); MONOCYTES % (AUTO) 9.5 % (2-12); NEUTROPHILS # (AUTO) 2.7 X10'3 (1.8-7.7); NEUTROPHILS % (AUTO) 56.1 % (42-75); PRE OP HEMOGLOBIN 13.4 g/dL (12.0-16.0); PRE OP PLATELET COUNT 154 X10'3 (140-440); RED BLOOD COUNT 4.14 X10'6 (4.20-5.60); RED CELL DISTRIBUTION WIDTH 14.6 % (11.5-14.5)
[2019-02-15 07:03] LABS: ALANINE AMINOTRANSFERASE 18 U/L (12-78); ALBUMIN 3.8 G/DL (3.4-5.0); ALBUMIN/GLOBULIN RATIO 1.4 (1.1-1.5); ALKALINE PHOSPHATASE 80 IU/L (46-116); ANION GAP 12 (8-16); ASPARTATE AMINO TRANSFERASE 11 U/L (10-37); BILIRUBIN,TOTAL 0.8 MG/DL (0.1-1.0); BLOOD UREA NITROGEN 28 MG/DL (7-18); BUN/CREATININE RATIO 25.7 (6.6-38.0); CALCIUM 9.8 MG/DL (8.5-10.1); CHLORIDE 107 MMOL/L (99-107); CREATININE 1.09 MG/DL (0.40-0.90); GLUCOSE 90 MG/DL (70-104); POTASSIUM 4.1 MMOL/L (3.5-5.1); SODIUM 142 MMOL/L (135-145); TOTAL CARBON DIOXIDE 23.4 MMOL/L (24-32); TOTAL PROTEIN 6.5 G/DL (6.4-8.2); eGFR 49 ML/MIN
[2019-02-15 07:09] LABS: INR 1.1 INR; PRE OP PARTIAL THROMB. TIME 29 SECONDS (22-32)
[2019-02-15] MEDS ORDERED: sevoflurane 250ml liquid IH ONE (07:23)
[2019-02-15] MEDS ORDERED: iohexol 300 MG/1 ML 50ml polymer ONE (07:24)
[2019-02-15] MEDS ORDERED: fentaNYL/PF 50MCG/1 ML 2ML syringe ONE ×2 (07:29→08:13)
[2019-02-15] MEDS ORDERED: rocuronium 10mg/ml inj IV ONE (08:13)
[2019-02-15] MEDS ORDERED: propofol inj 20 ML IV ONE (08:13)
[2019-02-15] MEDS ORDERED: LIDOcaine 2% (20mg/ml) 5ml vial ONE (08:13)
[2019-02-15] MEDS ORDERED: neostigmine methylsulfate 1 MG/ML 10ml vial ONE (10:10)
[2019-02-15] MEDS ORDERED: dexamethasone sod phosphate 4mg/ml inj. ONE (10:10)
[2019-02-15] MEDS ORDERED: ePHEDrine 50MG/ML INJ. ONE (10:10)
[2019-02-15] MEDS ORDERED: phenylephrine 10mg/ml inj. ONE (10:10)
[2019-02-15] MEDS ORDERED: ondansetron/PF 4mg/2ml inj ONE (10:10)
[2019-02-15] MEDS ORDERED: glycopyrrolate 0.2mg/ml inj ONE (10:10)
--- NOTE | 2019-02-15 10:20 | NUR ---
Received from OR via PCU BED , accompanied by Anesthesiologist JHONATHAN and report given by Anesthesiolgist. PATIENT WITH 20G PIV IN LEFT UE THAT IS INFILTRATED. NEW 22G PIV IN RIGHT UE PLACED IN RR. ANTERIOR LEFT CHEST WALL OP SITE DRESSINGS ARE CDI WITH SMALL BLOOD SPOTS TO DRESSINGS. VSS. WILL MEDICATE FOR PAIN. SCDS DONNED. Addendum: 02/15/19 at 1043 by Jamie Israel RN, RN Amended: Links added.
[2019-02-15] MEDS ORDERED: ringers solution, lacted 1,000 ML IV SCH (10:25)
[2019-02-15] MEDS ORDERED: ondansetron/PF 4mg/2ml inj IV PRN (10:25)
[2019-02-15] MEDS: HYDROmorphone inj. 0.5 MG/0.5 ML DISP.SYRIN IV PRN ×3 (10:45→11:32)
[2019-02-15] MEDS ORDERED: HYDROcodone/acetaminophen 5mg/325mg tablet PO PRN (11:15)
[2019-02-15] MEDS: normal saline 1000ml 1,000 ML IV SCH ×2 (11:15→21:15)
--- NOTE | 2019-02-15 11:30 | NUR ---
PATIENT HAS MET ALL CRITERIA FOR DC TO THE 3RD FLOOR. VSS, PAIN AT A TOLERABLE LEVEL. REPORT GIVEN TO MARISA ON PCU. ALL QUESTIONS ANSWERED. IV INTACT TO RIGHT UE RUNNING LR AT 100. FAMILY OUTSIDE ROOM. ACCOMPANIED TO 3RD FLOOR PCU. NO BELONGINGS OTHER THAT WHAT FAMILY HAS WITH THEM. DRESSING MAINTAINS SPOTTING BUT SAME WHEN PATIENT ARRIVED TO PACU. Addendum: 02/15/19 at 1156 by Jamie Israel RN, RN Amended: Links added.
[2019-02-15] MEDS: ipratropium 0.5 MG/2.5ML nebule NEB SCH ×4 (12:00→23:21)
[2019-02-15] MEDS: HYDROcodone/acetaminophen 10/325mg tab PO PRN (16:06)
--- NOTE | 2019-02-15 19:03 | NUR ---
Left arm edema and swelling post surgical procedure. Sensation, Pulses and capillary refill are normal throughout the Left arm.
[2019-02-15] MEDS ORDERED: vancomycin/NS 1 GM ADD-VANTAGE 250 ML IV SCH (20:00)
[2019-02-15] MEDS ORDERED: carVEDilol 12.5mg tablet PO SCH (20:00)
[2019-02-16] MEDS: HYDROcodone/acetaminophen 10/325mg tab PO PRN ×2 (01:23→07:35)
[2019-02-16 03:00] VITALS: BP 97/46
[2019-02-16] MEDS: ipratropium 0.5 MG/2.5ML nebule NEB SCH (03:12)
[2019-02-16] MEDS ORDERED: HYDR-4383 PO (06:21)
--- NOTE | 2019-02-16 06:35 | NUR ---
Problems reprioritized. Patient report given, questions answered & plan of care reviewed with Jannie VALLE.
--- NOTE | 2019-02-16 06:46 | NUR ---
Patient in room PCU 3015. I have received report from TORI Gee and had the opportunity to ask questions and assume patient care.
--- NOTE | 2019-02-16 06:46 | NUR ---
Called & left message with pt's daughter Dulce Maria, pt's ride home. Addendum: 02/16/19 at 0702 by Liz Solis RN Pt's daughter & ride home will be here at 0800.
[2019-02-16 07:00] VITALS: BP 118/73
--- NOTE | 2019-02-16 07:19 | NUR ---
Pt declined all morning medications except for [place] for pain.
[2019-02-16] MEDS ORDERED: sertraline 50mg tablet PO SCH (08:00)
[2019-02-16] MEDS ORDERED: montelukast 10mg tablet PO SCH (08:00)
[2019-02-16] MEDS ORDERED: losartan 50mg tablet PO SCH (08:00)
[2019-02-16] MEDS ORDERED: furosemide 20MG tablet PO SCH (08:00)
[2019-02-16] MEDS ORDERED: non-formulary drug (Sertraline HCl 1 TAB) PO SCH (08:00)
[2019-02-16] MEDS ORDERED: levoTHYROXINE 125mcg tablet PO SCH (08:00)
== END 2019-02-16 08:20 | disposition home or self-care (01) ==
LOC: PAS 05:30 → PCU 3S 14:47 → PAS 02-16 08:20
PROVIDERS: ATTEND Specialist
DX: T82.110A Breakdown (mechanical) of cardiac electrode, initial encounter (principal); T82.847A Pain due to cardiac prosthetic devices, implants and grafts, initial encounter; Z86.74 Personal history of sudden cardiac arrest; I42.9 Cardiomyopathy, unspecified; R06.02 Shortness of breath; I44.7 Left bundle-branch block, unspecified; I48.1 Persistent atrial fibrillation; I50.9 Heart failure, unspecified; I25.10 Atherosclerotic heart disease of native coronary artery without angina pectoris; Z95.810 Presence of automatic (implantable) cardiac defibrillator; I48.91 Unspecified atrial fibrillation; Z86.73 Personal history of transient ischemic attack (TIA), and cerebral infarction without residual deficits
CPT/HCPCS: 33225; 33263; 36415; 71045; 71048; 76000; 80053; 85025; 85610; 85730; 93641; 94640; 94760; A6257; C1882; J0690; J1100; J1170; J1580; J2001; J2370; J2405; J2704; J2710; J3010; J3370; J3490; J7030; J7042; J7120; Q9967; A6449; A7000; G0378

== ENCOUNTER 2019-06-26 13:47 | Day surgery (SDC) | payer MEDICARE ==
[2019-06-19 09:38] LABS: BASOPHILS # (AUTO) 0.1 X10'3 (0-0.2); BASOPHILS % (AUTO) 0.9 % (0-1); EOSINOPHILS # (AUTO) 0.4 X10'3 (0-0.9); EOSINOPHILS % (AUTO) 5.7 % (0-6); HEMATOCRIT 40.6 % (35.0-45.0); LYMPHOCYTES # (AUTO) 1.4 X10'3 (1.1-4.8); LYMPHOCYTES % (AUTO) 21.6 % (21-51); MEAN CORPUSCULAR HEMOGLOBIN 32.1 PG (27.0-31.0); MEAN CORPUSCULAR HGB CONC 34.6 g/dL (33.0-36.5); MEAN CORPUSCULAR VOLUME 92.6 FL (78-98); MONOCYTES # (AUTO) 0.4 X10'3 (0-0.9); MONOCYTES % (AUTO) 6.8 % (2-12); NEUTROPHILS # (AUTO) 4.3 X10'3 (1.8-7.7); PLATELET COUNT 151 X10'3 (140-440); RED BLOOD COUNT 4.38 X10'6 (4.20-5.60); RED CELL DISTRIBUTION WIDTH 14.5 % (11.5-14.5); WHITE BLOOD COUNT 6.6 X10'3 (4.5-11.0)
[2019-06-19 09:51] LABS: ALBUMIN 4.1 G/DL (3.4-5.0); ANION GAP 9 (8-16); BLOOD UREA NITROGEN 26 MG/DL (7-18); BUN/CREATININE RATIO 23.6 (6.6-38.0); CALCIUM 9.3 MG/DL (8.5-10.1); CHLORIDE 107 MMOL/L (99-107); GLUCOSE 94 MG/DL (70-104); POTASSIUM 3.6 MMOL/L (3.5-5.1); SODIUM 144 MMOL/L (135-145); TOTAL CARBON DIOXIDE 27.9 MMOL/L (24-32); eGFR 48 ML/MIN
[2019-06-19 10:24] LABS: PARTIAL THROMBOPLASTIN TIME 28 SECONDS (22-32)
[~2019-06-26] VITALS: Ht 152.4 cm; Wt 58.4 kg
[2019-06-26] VITALS (19 sets, daily range): BP systolic 90–129; BP diastolic 35–73
[~2019-06-26 13:47] MED LIST changes: +CARV-50 PO; -DOCUMENT DATE & TIME OF BETA-BLOCKER PO ONE; +HYDR-4383 PO; -METO50TA7 PO; -VANCOMYCIN INJ 1000 MG in NORMAL SALINE 250ml IV.SOLN IV ONE; -albuterol 2.5 MG/3 ML nebule NEB ONE; -dextrose 5%-normal saline 1,000 ML IV SCH; -famotidine 20mg tablet PO ONE; -ringers solution, lacted 1,000 ML IV SCH
[2019-06-26] MEDS ORDERED: normal saline 1000ml 1,000 ML IV SCH (14:05)
[2019-06-26] MEDS ORDERED: fentaNYL/PF 50MCG/1 ML 2ML syringe IV ONE (14:05)
[2019-06-26] MEDS ORDERED: MIDAZolam 5mg/ml 2ml vial IV ONE (14:05)
[2019-06-26] MEDS ORDERED: FURO-149 PO (14:31)
[2019-06-26] MEDS ORDERED: LOSA50TA64 PO (14:31)
[2019-06-26] MEDS ORDERED: AMIO200T36 PO (14:31)
[2019-06-26] MEDS ORDERED: LEVO100T PO (14:31)
[2019-06-26] MEDS ORDERED: SPIR25TA5 PO (14:31)
[2019-06-26] MEDS ORDERED: APIX5TAB3 PO (14:31)
[2019-06-26] MEDS ORDERED: budesonide (14:31)
== END 2019-06-26 18:10 | disposition home or self-care (01) ==
LOC: SSTAY O 13:47 → EDSTATUS 17:00 → SSTAY O 18:10
PROVIDERS: ATTEND Internal Medicine Interventional Cardiology
DX: I48.0 Paroxysmal atrial fibrillation (principal); I34.0 Nonrheumatic mitral (valve) insufficiency; I11.0 Hypertensive heart disease with heart failure; I50.22 Chronic systolic (congestive) heart failure; E03.9 Hypothyroidism, unspecified; J45.998 Other asthma; I25.10 Atherosclerotic heart disease of native coronary artery without angina pectoris; E87.6 Hypokalemia; Z86.73 Personal history of transient ischemic attack (TIA), and cerebral infarction without residual deficits; Z95.810 Presence of automatic (implantable) cardiac defibrillator; Z79.899 Other long term (current) drug therapy; Z88.8 Allergy status to other drugs, medicaments and biological substances; Z88.2 Allergy status to sulfonamides
CPT/HCPCS: 36415; 71045; 80048; 85025; 85610; 85730; 93312; 93325; J2250; J3010; J7030

== ENCOUNTER 2019-10-03 05:48 | Day surgery (SDC) | payer MEDICARE ==
[2019-09-28 14:58] LABS: PRE OP INR 1.1 INR; PRE OP PROTIME 11.1 SECONDS (9.0-12.0)
[2019-09-28 15:00] LABS: ALBUMIN 3.8 G/DL (3.4-5.0); ALBUMIN/GLOBULIN RATIO 1.2 (1.1-1.5); ALKALINE PHOSPHATASE 3 IU/L (46-116); BLOOD UREA NITROGEN 33 MG/DL (7-18); BUN/CREATININE RATIO 24.8 (6.6-38.0); CALCIUM 9.3 MG/DL (8.5-10.1); CHLORIDE 106 MMOL/L (99-107); CREATININE 1.33 MG/DL (0.40-0.90); PRE OP ALT 17 U/L (30-65); PRE OP ANION GAP 9 (8-16); PRE OP AST 12 U/L (10-37); PRE OP BILIRUB, TOTAL 0.8 MG/DL (0.0-1.0); PRE OP GLUCOSE 88 MG/DL (70-104); PRE OP POTASSIUM 3.6 MMOL/L (3.4-5.1); PRE OP SODIUM 142 MMOL/L (135-145); TOTAL CARBON DIOXIDE 27.4 MMOL/L (24-32); TOTAL PROTEIN 7.1 G/DL (6.4-8.2); eGFR 39 ML/MIN
[2019-09-28 15:16] LABS: BASOPHILS # (AUTO) 0.1 X10'3 (0-0.2); BASOPHILS % (AUTO) 0.9 % (0-1); EOSINOPHILS # (AUTO) 0.2 X10'3 (0-0.9); EOSINOPHILS % (AUTO) 2.7 % (0-6); LYMPHOCYTES # (AUTO) 0.9 X10'3 (1.1-4.8); LYMPHOCYTES % (AUTO) 15.3 % (21-51); MEAN CORPUSCULAR HEMOGLOBIN 32.3 PG (27.0-31.0); MEAN CORPUSCULAR HGB CONC 35.6 g/dL (33.0-36.5); MEAN CORPUSCULAR VOLUME 90.5 FL (78-98); MEAN PLATELET VOLUME 7.3 FL (7.4-10.4); MONOCYTES # (AUTO) 0.4 X10'3 (0-0.9); MONOCYTES % (AUTO) 6.4 % (2-12); NEUTROPHILS # (AUTO) 4.4 X10'3 (1.8-7.7); NEUTROPHILS % (AUTO) 74.7 % (42-75); PRE OP HEMATOCRIT 35.4 % (35.0-45.0); PRE OP HEMOGLOBIN 12.6 g/dL (12.0-16.0); PRE OP PLATELET COUNT 172 X10'3 (140-440); RED BLOOD COUNT 3.91 X10'6 (4.20-5.60)
[2019-10-03] VITALS (9 sets, daily range): BP systolic 108–156; BP diastolic 66–90
[~2019-10-03] VITALS: Ht 165.1 cm; Wt 57.9 kg
[~2019-10-03 05:48] MED LIST changes: +ALBU8.5H8 INH; +AMIO200T36 PO; +APIX5TAB3 PO; -ATR0.5NEB NEB; -DABI150C PO; +DOCUMENT DATE & TIME OF BETA-BLOCKER PO ONE; +FURO-149 PO; -FURO20TA4 PO; -HYDR-4383 PO; +LEVO100T PO; -LEVO75TA PO; -LOSA25TA96 PO; +SPIR25TA5 PO; +albuterol 2.5 MG/3 ML nebule NEB ONE; +cefazolin/dext.iso 2gm/100ml 100 ML IV ONE; +clindamycin-Cleocin 900mg/D5W 50 ML IV ONE; +famotidine 10mg tablet PO ONE; +ringers solution, lacted 1,000 ML IV SCH
[2019-10-03] MEDS ORDERED: LIDOcaine 1% (10mg/ml) 2ml vial ONE (06:12)
[2019-10-03] MEDS ORDERED: LOSA50TA64 PO (06:56)
[2019-10-03] MEDS ORDERED: LIDOcaine 1% W/epiNEPHrine 1:200,000 10ml vial ONE (07:07)
[2019-10-03] MEDS ORDERED: ringers solution, lacted 1,000 ML IV SCH (07:52)
[2019-10-03] MEDS ORDERED: ondansetron/PF 4mg/2ml inj IV PRN (07:55)
[2019-10-03] MEDS ORDERED: enalaprilat dihydrate 2.5mg/2ml vial IV PRN (07:55)
[2019-10-03] MEDS ORDERED: hydrALAZINE 20mg/ml inj. IV PRN (07:55)
[2019-10-03] MEDS ORDERED: fentaNYL/PF 50MCG/1 ML 2ML syringe IV PRN ×2 (07:55)
[2019-10-03] MEDS ORDERED: etomidate 2mg/ml inj. ONE (08:06)
[2019-10-03] MEDS ORDERED: sevoflurane 250ml liquid IH ONE (08:48)
[2019-10-03] MEDS ORDERED: fentaNYL/PF 50MCG/1 ML 2ML syringe ONE (08:59)
[2019-10-03] MEDS ORDERED: midazolam 2 mg/2 ml injection ONE (09:00)
--- NOTE | 2019-10-03 09:40 | NUR ---
Received from OR via BED, accompanied by Anesthesiologist DR MOON-- and report given by Anesthesiolgist. PATIENT A&OX4, DENIES PAIN, V/S WNL, NEUROVASCULAR CHECKS INTACT, 20G PIV RUE, SCD ON, DRESSING TO LEFT NECK CDI
--- NOTE | 2019-10-03 10:40 | NUR ---
PATIENT A&OX4, DENIES PAIN, V/S WNL, NEUROVASCULAR CHECKS INTACT, 20G PIV RUE D/C, SCD OFF, DRESSING TO LEFT NECK CDI. I HAVE REVIEWED D/C INSTRUCTIONS WITH PATIENT AND FAMILY AND THEY HAVE VERBALIZED UNDERSTANDING. PATIENT D/C HOME WITH ALL BELONGINGS AND FAMILY GAVE TRANSPORT HOME.
== END 2019-10-03 10:40 | disposition home or self-care (01) ==
LOC: PAS 05:48
PROVIDERS: ATTEND Surgery
DX: C44.42 Squamous cell carcinoma of skin of scalp and neck (principal); G47.00 Insomnia, unspecified; M19.90 Unspecified osteoarthritis, unspecified site; G89.29 Other chronic pain; I48.91 Unspecified atrial fibrillation; F32.9 Major depressive disorder, single episode, unspecified; J44.9 Chronic obstructive pulmonary disease, unspecified; Z95.0 Presence of cardiac pacemaker; I50.40 Unspecified combined systolic (congestive) and diastolic (congestive) heart failure; Z91.010 Allergy to peanuts; Z88.1 Allergy status to other antibiotic agents; Z88.2 Allergy status to sulfonamides; Z79.899 Other long term (current) drug therapy; Z82.49 Family history of ischemic heart disease and other diseases of the circulatory system
CPT/HCPCS: 11623; 12042; 71046; 80053; 82948; 85025; 85610; 85730; 93005; J2001; J2250; J3010; J7120; A4618; A7000

== ENCOUNTER 2019-10-16 17:09 | Emergency (ER) | payer MEDICARE ==
[~2019-10-16] VITALS: Ht 165.1 cm; Wt 57.7 kg
[~2019-10-16 17:09] MED LIST changes: -DOCUMENT DATE & TIME OF BETA-BLOCKER PO ONE; +LOSA50TA64 PO; -albuterol 2.5 MG/3 ML nebule NEB ONE; -cefazolin/dext.iso 2gm/100ml 100 ML IV ONE; -clindamycin-Cleocin 900mg/D5W 50 ML IV ONE; -famotidine 10mg tablet PO ONE; -ringers solution, lacted 1,000 ML IV SCH
[2019-10-16] MEDS ORDERED: ipratropium/albuterol 3ml nebule NEB ONE (17:55)
[2019-10-16] MEDS ORDERED: methylPREDNISolone sod succ 125mg/2ml vial IV ONE (17:55)
[2019-10-16] MEDS ORDERED: normal saline 1000ML IV soln IVB ONE ×2 (17:55→20:05)
[2019-10-16 18:02] LABS: BASOPHILS % (AUTO) 0.4 % (0-1); EOSINOPHILS # (AUTO) 0.1 X10'3 (0-0.9); EOSINOPHILS % (AUTO) 0.6 % (0-6); HEMATOCRIT 35.9 % (35.0-45.0); HEMOGLOBIN 12.8 g/dl (12.0-16.0); LYMPHOCYTES # (AUTO) 1.1 X10'3 (1.1-4.8); LYMPHOCYTES % (AUTO) 10.7 % (21-51); MEAN CORPUSCULAR HEMOGLOBIN 32.8 PG (27.0-31.0); MEAN CORPUSCULAR HGB CONC 35.6 g/dL (33.0-36.5); MEAN CORPUSCULAR VOLUME 92.1 FL (78-98); MEAN PLATELET VOLUME 7.9 FL (7.4-10.4); MONOCYTES # (AUTO) 0.7 X10'3 (0-0.9); MONOCYTES % (AUTO) 7.5 % (2-12); NEUTROPHILS # (AUTO) 8.1 X10'3 (1.8-7.7); NEUTROPHILS % (AUTO) 80.8 % (42-75); PLATELET COUNT 179 X10'3 (140-440); RED BLOOD COUNT 3.89 X10'6 (4.20-5.60); RED CELL DISTRIBUTION WIDTH 14.2 % (11.5-14.5)
[2019-10-16 18:13] LABS: ALANINE AMINOTRANSFERASE 15 U/L (12-78); ALBUMIN 3.5 G/DL (3.4-5.0); ALBUMIN/GLOBULIN RATIO 0.9 (1.1-1.5); ALKALINE PHOSPHATASE 128 IU/L (46-116); ANION GAP 10 (8-16); ASPARTATE AMINO TRANSFERASE 17 U/L (10-37); BILIRUBIN,TOTAL 1.4 MG/DL (0.1-1.0); BLOOD UREA NITROGEN 18 MG/DL (7-18); BUN/CREATININE RATIO 15.8 (6.6-38.0); CALCIUM 9.5 MG/DL (8.5-10.1); CHLORIDE 103 MMOL/L (99-107); CREATININE 1.14 MG/DL (0.40-0.90); GLUCOSE 104 MG/DL (70-104); POTASSIUM 3.4 MMOL/L (3.5-5.1); SODIUM 141 MMOL/L (135-145); TOTAL CARBON DIOXIDE 28.5 MMOL/L (24-32); TOTAL PROTEIN 7.3 G/DL (6.4-8.2); eGFR 46 ML/MIN
--- NOTE | 2019-10-16 18:29 | NUR ---
Patient resting upright in bed with grandson at bedside. Patient updated on POC and no requests from the patient at this time.
[2019-10-16] MEDS ORDERED: FURO40TA4 PO (19:56)
[2019-10-16] MEDS ORDERED: SERT25TA PO (19:56)
[2019-10-16] MEDS ORDERED: SPIR25TA5 PO (19:56)
[2019-10-16] MEDS ORDERED: METO50TA7 PO (19:56)
[2019-10-16] MEDS ORDERED: AMIO200T61 PO (19:56)
[2019-10-16] MEDS ORDERED: APIX5TAB3 PO (19:56)
[2019-10-16] MEDS ORDERED: CARV-49 PO (19:56)
[2019-10-16] MEDS ORDERED: POTA10TA36 PO (19:56)
[2019-10-16] MEDS ORDERED: LOSA25TA96 PO (19:56)
[2019-10-16] MEDS ORDERED: LEVO125T PO (19:56)
[2019-10-16] MEDS ORDERED: ondansetron/PF 4mg/2ml inj IV ONE (20:05)
[2019-10-16] MEDS ORDERED: DOXYCYCLINE 100MG CAPSULE PO STA (20:08)
[2019-10-16] MEDS ORDERED: PRED20TA PO (20:10)
[2019-10-16] MEDS ORDERED: BENZ-16 PO (20:10)
[2019-10-16] MEDS ORDERED: DOXY100C43 PO (20:10)
[2019-10-16 21:00] VITALS: BP 89/49
== END 2019-10-16 21:14 | disposition home or self-care (01) ==
LOC: ER 17:10
DX: J44.1 Chronic obstructive pulmonary disease with (acute) exacerbation (principal); I48.91 Unspecified atrial fibrillation; I11.0 Hypertensive heart disease with heart failure; I50.9 Heart failure, unspecified; Z86.73 Personal history of transient ischemic attack (TIA), and cerebral infarction without residual deficits; Z90.710 Acquired absence of both cervix and uterus; Z95.0 Presence of cardiac pacemaker; Z88.2 Allergy status to sulfonamides; Z88.1 Allergy status to other antibiotic agents; Z88.5 Allergy status to narcotic agent; Z91.010 Allergy to peanuts; Z79.899 Other long term (current) drug therapy
CPT/HCPCS: 36415; 71045; 80053; 83605; 83880; 85025; 87040; 87502; 87503; 93005; 94640; 96374; 96375; 99284; J2405; J2930; J7030; J7040; 94760

== ENCOUNTER 2019-10-24 08:04 | Day surgery (SDC) | payer MEDICARE ==
[2019-10-24] VITALS (10 sets, daily range): BP systolic 119–130; BP diastolic 61–77
[~2019-10-24] VITALS: Ht 165.1 cm; Wt 60.1 kg
[~2019-10-24 08:04] MED LIST changes: -ALBU8.5H8 INH; -AMIO200T36 PO; +AMIO200T61 PO; +BENZ-16 PO; +CARV-49 PO; -CARV-50 PO; +DOXY100C43 PO; -FURO-149 PO; +FURO40TA4 PO; -LEVO100T PO; +LEVO125T PO; +LOSA25TA96 PO; -LOSA50TA64 PO; +METO50TA7 PO; -MONT10TA21 PO; +POTA10TA36 PO; +PRED20TA PO; -SERT100T10 PO; +SERT25TA PO
[2019-10-24] MEDS ORDERED: LIDOcaine 0.5% W/epiNEPHrine 1:200,000 50ml vial IJ ONE (09:08)
[2019-10-24] MEDS ORDERED: ALBU8.5H8 IH (09:15)
[2019-10-24] MEDS ORDERED: MONT10TA21 PO (09:16)
[2019-10-24] MEDS ORDERED: cefazolin/dext.iso 2gm/100ml 100 ML IV ONE (09:35)
[2019-10-24] MEDS ORDERED: famotidine 10mg tablet PO ONE (10:00)
[2019-10-24] MEDS ORDERED: ringers solution, lacted 1,000 ML IV SCH ×2 (10:00→13:08)
[2019-10-24 10:10] LABS: BASOPHILS % (AUTO) 0.3 % (0-1); EOSINOPHILS % (AUTO) 0 % (0-6); LYMPHOCYTES # (AUTO) 1.7 X10'3 (1.1-4.8); LYMPHOCYTES % (AUTO) 19.2 % (21-51); MEAN CORPUSCULAR HEMOGLOBIN 31.8 PG (27.0-31.0); MEAN CORPUSCULAR HGB CONC 34.7 g/dL (33.0-36.5); MEAN CORPUSCULAR VOLUME 91.6 FL (78-98); MEAN PLATELET VOLUME 6.7 FL (7.4-10.4); MONOCYTES # (AUTO) 0.6 X10'3 (0-0.9); MONOCYTES % (AUTO) 6.3 % (2-12); NEUTROPHILS # (AUTO) 6.7 X10'3 (1.8-7.7); NEUTROPHILS % (AUTO) 74.2 % (42-75); PRE OP HEMATOCRIT 34.9 % (35.0-45.0); PRE OP HEMOGLOBIN 12.1 g/dL (12.0-16.0); PRE OP PLATELET COUNT 240 X10'3 (140-440); RED BLOOD COUNT 3.81 X10'6 (4.20-5.60); RED CELL DISTRIBUTION WIDTH 14.6 % (11.5-14.5)
[2019-10-24 10:21] LABS: PRE OP INR 1.1 INR; PRE OP PROTIME 10.9 SECONDS (9.0-12.0)
[2019-10-24 10:24] LABS: ALBUMIN 3.4 G/DL (3.4-5.0); ALBUMIN/GLOBULIN RATIO 1.1 (1.1-1.5); ALKALINE PHOSPHATASE 84 IU/L (46-116); BLOOD UREA NITROGEN 26 MG/DL (7-18); BUN/CREATININE RATIO 21.7 (6.6-38.0); CHLORIDE 108 MMOL/L (99-107); PRE OP ALT 19 U/L (30-65); PRE OP ANION GAP 7 (8-16); PRE OP AST 12 U/L (10-37); PRE OP BILIRUB, TOTAL 0.6 MG/DL (0.0-1.0); PRE OP GLUCOSE 77 MG/DL (70-104); PRE OP POTASSIUM 4.4 MMOL/L (3.4-5.1); PRE OP SODIUM 147 MMOL/L (135-145); TOTAL CARBON DIOXIDE 32.1 MMOL/L (24-32); TOTAL PROTEIN 6.4 G/DL (6.4-8.2); eGFR 44 ML/MIN
[2019-10-24] MEDS ORDERED: BUPIVAcaine/PF 2.5 mg/ml (0.25%) 30ml vial ONE (12:08)
[2019-10-24] MEDS ORDERED: sevoflurane 250ml liquid IH ONE (12:13)
[2019-10-24] MEDS ORDERED: glycopyrrolate 0.2mg/ml inj ONE (12:13)
[2019-10-24] MEDS ORDERED: midazolam 2 mg/2 ml injection ONE (12:17)
[2019-10-24] MEDS ORDERED: fentaNYL/PF 50MCG/1 ML 2ML syringe ONE (12:17)
[2019-10-24] MEDS ORDERED: propofol inj 20 ML IV ONE (12:26)
--- NOTE | 2019-10-24 13:06 | NUR ---
Received from OR via BED, accompanied by Anesthesiologist DR BOYD and report given by Anesthesiologist. PT DROWSY, NO S/S OF DISTRESS/DISCOMFORT, LEFT NECK W/GAUZE DRSG COVERING INCISION W/CLEAR DRSG COVERING, CDI. Addendum: 10/24/19 at 1319 by Jeri George RN Amended: Links added.
[2019-10-24] MEDS ORDERED: ondansetron/PF 4mg/2ml inj IV PRN (13:10)
[2019-10-24] MEDS ORDERED: proCHLORperazine 10 MG/2 ml inj IV PRN (13:10)
[2019-10-24] MEDS ORDERED: morphine 4 MG/ML inj SYRINge IV PRN (13:10)
[2019-10-24] MEDS ORDERED: meperidine/PF 25mg/ml syringe IV PRN ×2 (13:10)
--- NOTE | 2019-10-24 14:26 | NUR ---
D/C INSTRUCTIONS GIVEN AND GONE OVER W/PT AND PTS DAUGHTER WHOM VERBALIZED UNDERSTANDING, PT D/CD TO HOME VIA W/C TO PRIVATE VEHICLE W/O INCIDENT. Addendum: 10/24/19 at 1437 by Jeri George RN Amended: Links added.
== END 2019-10-24 14:26 | disposition home or self-care (01) ==
LOC: PRE-OP 08:04
PROVIDERS: ATTEND Surgery
DX: Z03.89 Encounter for observation for other suspected diseases and conditions ruled out (principal); I48.91 Unspecified atrial fibrillation; J44.9 Chronic obstructive pulmonary disease, unspecified; I13.0 Hypertensive heart and chronic kidney disease with heart failure and stage 1 through stage 4 chronic kidney disease, or unspecified chronic kidney disease; N18.4 Chronic kidney disease, stage 4 (severe); I50.9 Heart failure, unspecified; F32.9 Major depressive disorder, single episode, unspecified; F41.9 Anxiety disorder, unspecified; I25.2 Old myocardial infarction; E03.9 Hypothyroidism, unspecified; Z95.0 Presence of cardiac pacemaker; Z85.828 Personal history of other malignant neoplasm of skin; Z88.1 Allergy status to other antibiotic agents; Z88.2 Allergy status to sulfonamides; Z88.5 Allergy status to narcotic agent; Z91.010 Allergy to peanuts; Z79.899 Other long term (current) drug therapy; Z86.73 Personal history of transient ischemic attack (TIA), and cerebral infarction without residual deficits; Z82.49 Family history of ischemic heart disease and other diseases of the circulatory system; R20.8 Other disturbances of skin sensation; L91.8 Other hypertrophic disorders of the skin
CPT/HCPCS: 11426; 12044; 36415; 80053; 85025; 85610; 85730; J2250; J2704; J3010; J3490; 88305; A4215; A4618; A6258; A7000; J7120

== ENCOUNTER 2021-06-15 22:35 | Inpatient (IN) | payer MEDICARE ==
[~2021-06-15] VITALS: Ht 165.1 cm; Wt 57.7 kg
[~2021-06-15 22:35] MED LIST changes: +ALBU8.5H17 IH; +AMIO100T4 PO; -AMIO200T61 PO; -BENZ-16 PO; -CARV-49 PO; +COR3.125T PO; -DOXY100C43 PO; -FURO40TA4 PO; +HYDR-4383 PO; -LOSA25TA96 PO; -METO50TA7 PO; +MONT10TA21 PO; -POTA10TA36 PO; -PRED20TA PO; +SPIR25TA PO; -SPIR25TA5 PO
[2021-06-16 00:05] LABS: BASOPHILS # (AUTO) 0.1 X10'3 (0-0.2); BASOPHILS % (AUTO) 0.7 % (0-1); EOSINOPHILS # (AUTO) 0.1 X10'3 (0-0.9); EOSINOPHILS % (AUTO) 1.3 % (0-6); HEMATOCRIT 42.2 % (35.0-45.0); HEMOGLOBIN 14.3 g/dl (12.0-16.0); LYMPHOCYTES # (AUTO) 1.2 X10'3 (1.1-4.8); LYMPHOCYTES % (AUTO) 15.9 % (21-51); MEAN CORPUSCULAR HEMOGLOBIN 31.7 PG (27.0-31.0); MEAN CORPUSCULAR HGB CONC 33.8 g/dL (33.0-36.5); MEAN CORPUSCULAR VOLUME 93.9 FL (78-98); MEAN PLATELET VOLUME 8.4 FL (7.4-10.4); MONOCYTES # (AUTO) 0.4 X10'3 (0-0.9); MONOCYTES % (AUTO) 5.6 % (2-12); NEUTROPHILS # (AUTO) 5.7 X10'3 (1.8-7.7); NEUTROPHILS % (AUTO) 76.5 % (42-75); PLATELET COUNT 178 X10'3 (140-440); RED CELL DISTRIBUTION WIDTH 14.3 % (11.5-14.5); WHITE BLOOD COUNT 7.4 X10'3 (4.5-11.0)
[2021-06-16 00:25] LABS: ALANINE AMINOTRANSFERASE 13 U/L (12-78); ALBUMIN 3.8 G/DL (3.4-5.0); ALBUMIN/GLOBULIN RATIO 1.2 (1.1-1.5); ALKALINE PHOSPHATASE 106 IU/L (46-116); ANION GAP 10 (8-16); ASPARTATE AMINO TRANSFERASE 17 U/L (10-37); BLOOD UREA NITROGEN 24 MG/DL (7-18); BUN/CREATININE RATIO 20.2 (6.6-38.0); CHLORIDE 109 MMOL/L (99-107); CREATININE 1.19 MG/DL (0.40-0.90); GLUCOSE 97 MG/DL (70-104); LIPASE < 50 U/L (73-393); POTASSIUM 4.2 MMOL/L (3.5-5.1); SODIUM 144 MMOL/L (135-145); TOTAL CARBON DIOXIDE 24.7 MMOL/L (24-32); TOTAL PROTEIN 7.1 G/DL (6.4-8.2); eGFR 44 ML/MIN
[2021-06-16] MEDS ORDERED: normal saline 1000ML IV soln IVB ONE (02:35)
[2021-06-16] MEDS ORDERED: ondansetron/PF 4mg/2ml inj IV ONE (02:35)
[2021-06-16] MEDS ORDERED: morphine 4 MG/ML inj SYRINge IV PRN (02:35)
[2021-06-16 04:14] LABS: CLARITY,URINE CLEAR (Clear); COLOR,URINE YELLOW (Yellow); GLUCOSE, URINE >=1000 mg/dl (Neg); KETONES,URINE NEGATIVE (Neg); LEUKOCYTE ESTERASE ,URINE TRACE (Neg); NITRITES, URINE POSITIVE (Neg); OCCULT BLOOD,URINE TRACE-INTACT (Neg); PROTEIN,URINE NEGATIVE (Neg); UROBILINOGEN,URINE 0.2 E.U/dL (0.2-1.0)
[2021-06-16 04:22] LABS: UA COLLECTION TYPE STRAIGHT CATH
[2021-06-16 04:24] LABS: BACTERIA,URINE 4+ /HPF (Neg); MUCUS STRANDS FEW /LPF (Neg); RBC,URINE 0-2 /HPF (0-2); SQUAMOUS EPITHELIAL CELL,UR NONE SEEN /LPF (FEW); WBC,URINE 20-30 /HPF (0-4)
[2021-06-16] MEDS ORDERED: HYDROcodone/acetaminophen 5mg/325mg tablet PO PRN (06:00)
[2021-06-16] MEDS ORDERED: magnesium hydroxide 30ml (MOM) UD suspension PO PRN (06:00)
[2021-06-16] MEDS ORDERED: ondansetron/PF 4mg/2ml inj IV PRN (06:00)
[2021-06-16] MEDS ORDERED: mag hydrox/Alum hydrox/simeth 30ml oral suspension PO PRN (06:00)
[2021-06-16] MEDS ORDERED: metoclopramide 5 mg/ml inj IV PRN (06:00)
[2021-06-16] MEDS ORDERED: morphine 2 MG/ML inj. syringe IV PRN (06:00)
[2021-06-16] MEDS ORDERED: acetaminophen 325mg tablet PO PRN ×2 (06:00)
[2021-06-16] MEDS: docusate sod 100mg capsule PO SCH ×2 (08:00→21:13)
[2021-06-16] MEDS: CefTRIAXone/D5W-Rocephin 1gm 50 ML IV SCH (09:17)
[2021-06-16] MEDS: dextrose 5%-1/2 normal saline 1,000 ML IV SCH ×2 (09:20→16:00)
[2021-06-16] MEDS ORDERED: MONT10TA32 PO (10:00)
[2021-06-16] MEDS ORDERED: SPIR25TA5 PO (10:00)
[2021-06-16] MEDS ORDERED: BUDE10.22 PO (10:00)
[2021-06-16] MEDS ORDERED: CARV6.253 PO (10:00)
[2021-06-16] MEDS ORDERED: LEVO125T8 PO (10:00)
[2021-06-16] MEDS ORDERED: AMIO100T4 PO (10:00)
[2021-06-16] MEDS ORDERED: MIRT-87 PO (10:00)
[2021-06-16] MEDS ORDERED: EMPA10TA PO (10:00)
[2021-06-16] MEDS ORDERED: SACU1TAB PO (10:00)
[2021-06-16] MEDS ORDERED: FURO40TA4 PO (10:00)
[2021-06-16] MEDS ORDERED: ALBU6.7H9 IH (10:00)
[2021-06-16] MEDS ORDERED: APIX5TAB3 PO (10:03)
[2021-06-16] MEDS: metroNIDAZOLE-Flagyl 500mg/NS 100 ML IV SCH ×2 (10:03→16:14)
[2021-06-16] MEDS ORDERED: PRED10TA PO (10:06)
--- NOTE | 2021-06-16 13:03 | NUR ---
Patient in room ED 9. I have received report from TORI Babin and had the opportunity to ask questions and assume patient care. [facility]
[2021-06-16 13:30] VITALS: BP 126/64
--- NOTE | 2021-06-16 13:30 | NUR ---
Received patient to room 355A. Patient is alert and oriented c/o pain to abd 8/10. Pain med will be administered as ordered. NG tube to right nares hooked up to low intermittent suction. Skin check completed. Oriented patient to room and call light. Call light placed within patient's reach. Bed low and locked. Warm blanket given to patient. Will continue to monitor.
[2021-06-16] MEDS: morphine 2 MG/ML inj. syringe IV PRN ×2 (13:36→23:05)
--- NOTE | 2021-06-16 14:09 | NUR ---
Patient able to transfer to [facility] with [facility].
[2021-06-16] MEDS ORDERED: furosemide 40mg tablet PO PRN (15:00)
[2021-06-16 18:00] VITALS: BP 100/45
--- NOTE | 2021-06-16 19:07 | NUR ---
Patient in room [facility] 355. I have received report from TORI Garcia and had the opportunity to ask questions and assume patient care.
[2021-06-16] MEDS ORDERED: ALBUTEROL INHALER 1 PUFF/90 MCG INHALER IH SCH (20:00)
[2021-06-16] MEDS: carvedilol 6.25mg tablet PO SCH (20:00)
[2021-06-16] MEDS: sacubitril/valsartan 24mg-26mg tablet PO SCH (20:00)
[2021-06-16] MEDS ORDERED: albuterol 2.5 MG/3 ML nebule NEB SCH (20:00)
[2021-06-16] MEDS: mirtazapine 15mg tablet PO SCH (21:00)
[2021-06-16] MEDS: amiodarone 100mg tablet PO SCH (21:13)
[2021-06-17] VITALS: BP 104/46
[2021-06-17] MEDS: dextrose 5%-1/2 normal saline 1,000 ML IV SCH ×3 (00:52→22:00)
[2021-06-17] MEDS: metroNIDAZOLE-Flagyl 500mg/NS 100 ML IV SCH ×3 (00:52→19:08)
--- NOTE | 2021-06-17 01:32 | NUR ---
Patient refused her Remeron because she says it makes her sick. I advised her it was not a good idea to abruptly stop her antidepressant. She insisted on not taking her medication due to feeling ill after taking it.
[2021-06-17 06:17] LABS: BASOPHILS % (AUTO) 0.5 % (0-1); EOSINOPHILS # (AUTO) 0.1 X10'3 (0-0.9); EOSINOPHILS % (AUTO) 3.3 % (0-6); HEMATOCRIT 32.7 % (35.0-45.0); HEMOGLOBIN 11.1 g/dl (12.0-16.0); LYMPHOCYTES # (AUTO) 0.9 X10'3 (1.1-4.8); LYMPHOCYTES % (AUTO) 20.4 % (21-51); MEAN CORPUSCULAR HEMOGLOBIN 32.2 PG (27.0-31.0); MEAN CORPUSCULAR VOLUME 94.5 FL (78-98); MEAN PLATELET VOLUME 8.1 FL (7.4-10.4); MONOCYTES # (AUTO) 0.4 X10'3 (0-0.9); MONOCYTES % (AUTO) 8.3 % (2-12); NEUTROPHILS % (AUTO) 67.5 % (42-75); PLATELET COUNT 124 X10'3 (140-440); RED BLOOD COUNT 3.46 X10'6 (4.20-5.60); RED CELL DISTRIBUTION WIDTH 13.8 % (11.5-14.5); WHITE BLOOD COUNT 4.5 X10'3 (4.5-11.0)
--- NOTE | 2021-06-17 06:37 | NUR ---
Problems reprioritized. Patient report given, questions answered & plan of care reviewed with TORI Eddy.
[2021-06-17 06:43] LABS: ALBUMIN 2.7 G/DL (3.4-5.0); ANION GAP 8 (8-16); BLOOD UREA NITROGEN 16 MG/DL (7-18); BUN/CREATININE RATIO 14.2 (6.6-38.0); CALCIUM 7.9 MG/DL (8.5-10.1); CHLORIDE 112 MMOL/L (99-107); CREATININE 1.13 MG/DL (0.40-0.90); GLUCOSE 100 MG/DL (70-104); POTASSIUM 3.9 MMOL/L (3.5-5.1); SODIUM 146 MMOL/L (135-145); TOTAL CARBON DIOXIDE 25.6 MMOL/L (24-32); eGFR 47 ML/MIN
--- NOTE | 2021-06-17 06:44 | NUR ---
Patient in room [facility] 355. I have received report from Maddi VALLE and had the opportunity to ask questions and assume patient care.
[2021-06-17 07:19] VITALS: BP 92/45
[2021-06-17] MEDS: EMPAGLIFLOZIN 10 MG PO SCH (08:00)
[2021-06-17] MEDS: carvedilol 6.25mg tablet PO SCH ×2 (08:00→19:13)
[2021-06-17] MEDS: sacubitril/valsartan 24mg-26mg tablet PO SCH ×2 (08:00→19:15)
[2021-06-17] MEDS: spironolactone 25 MG tablet PO SCH (08:00)
[2021-06-17] MEDS: amiodarone 100mg tablet PO SCH ×2 (09:31→19:12)
[2021-06-17] MEDS: docusate sod 100mg capsule PO SCH ×2 (09:32→19:12)
[2021-06-17] MEDS: montelukast 10mg tablet PO SCH (09:32)
[2021-06-17] MEDS: CefTRIAXone/D5W-Rocephin 1gm 50 ML IV SCH (09:33)
[2021-06-17] MEDS: levoTHYROXINE 125mcg tablet PO SCH (09:33)
[2021-06-17 12:00] VITALS: BP 100/50
[2021-06-17] MEDS ORDERED: diatr meglu/diatrizoate 30ml oral sol.-(3 dose) bottle PO ONE (12:10)
[2021-06-17] MEDS ORDERED: ondansetron 4mg rapidly disintigrating tab PO PRN (15:30)
[2021-06-17 19:02] VITALS: BP 120/52
[2021-06-17] MEDS: mirtazapine 15mg tablet PO SCH (20:42)
[2021-06-18] VITALS: BP 93/53
--- NOTE | 2021-06-18 00:30 | NUR ---
Patient in room [facility] 355. I have received report from DOUG and had the opportunity to ask questions and assume patient care. PT RESTING AT THIS TIME
--- NOTE | 2021-06-18 00:44 | NUR ---
Problems reprioritized. Patient report given, questions answered & plan of care reviewed with Renita VALLE.
[2021-06-18] MEDS: metroNIDAZOLE-Flagyl 500mg/NS 100 ML IV SCH ×2 (01:00→09:19)
[2021-06-18 06:30] LABS: BASOPHILS % (AUTO) 0.8 % (0-1); EOSINOPHILS # (AUTO) 0.2 X10'3 (0-0.9); EOSINOPHILS % (AUTO) 5.9 % (0-6); HEMATOCRIT 32.6 % (35.0-45.0); LYMPHOCYTES # (AUTO) 0.9 X10'3 (1.1-4.8); MEAN CORPUSCULAR HEMOGLOBIN 32.2 PG (27.0-31.0); MEAN CORPUSCULAR HGB CONC 33.6 g/dL (33.0-36.5); MEAN CORPUSCULAR VOLUME 95.7 FL (78-98); MONOCYTES # (AUTO) 0.2 X10'3 (0-0.9); MONOCYTES % (AUTO) 8.8 % (2-12); NEUTROPHILS # (AUTO) 1.4 X10'3 (1.8-7.7); NEUTROPHILS % (AUTO) 51.5 % (42-75); PLATELET COUNT 122 X10'3 (140-440); RED CELL DISTRIBUTION WIDTH 13.8 % (11.5-14.5); WHITE BLOOD COUNT 2.8 X10'3 (4.5-11.0)
--- NOTE | 2021-06-18 06:35 | NUR ---
Problems reprioritized. Patient report given, questions answered & plan of care reviewed with
[2021-06-18 06:59] LABS: PLATELET ESTIMATE DECREASED; TOTAL CELLS COUNTED 100
[2021-06-18 07:00] VITALS: BP 95/55
[2021-06-18 07:08] LABS: ALBUMIN 2.7 G/DL (3.4-5.0); ANION GAP 9 (8-16); BLOOD UREA NITROGEN 10 MG/DL (7-18); BUN/CREATININE RATIO 10.4 (6.6-38.0); CALCIUM 8.2 MG/DL (8.5-10.1); CHLORIDE 113 MMOL/L (99-107); CREATININE 0.96 MG/DL (0.40-0.90); GLUCOSE 90 MG/DL (70-104); POTASSIUM 3.4 MMOL/L (3.5-5.1); SODIUM 147 MMOL/L (135-145); TOTAL CARBON DIOXIDE 25.4 MMOL/L (24-32); eGFR 56 ML/MIN
[2021-06-18] MEDS: EMPAGLIFLOZIN 10 MG PO SCH (08:00)
[2021-06-18] MEDS: amiodarone 100mg tablet PO SCH (09:20)
[2021-06-18] MEDS: docusate sod 100mg capsule PO SCH (09:20)
[2021-06-18] MEDS: levoTHYROXINE 125mcg tablet PO SCH (09:21)
[2021-06-18] MEDS: carvedilol 6.25mg tablet PO SCH (09:21)
[2021-06-18] MEDS: montelukast 10mg tablet PO SCH (09:21)
[2021-06-18 09:26] VITALS: BP_SYST 103
[2021-06-18] MEDS: spironolactone 25 MG tablet PO SCH (09:26)
[2021-06-18] MEDS: sacubitril/valsartan 24mg-26mg tablet PO SCH (09:31)
[2021-06-18] MEDS: CefTRIAXone/D5W-Rocephin 1gm 50 ML IV SCH (10:36)
--- NOTE | 2021-06-18 13:18 | NUR ---
medicated for pain x1. seen by Dr Bojorquez and Dr jaciel hauser for DC. All Dc instructions given to patient and grandson. patient is to continue full lqd diet for one week and follow up with Dr bojorquez. patient appeared to understand and comprehend instructions. Dc home with grand son in private car to home in stable condition
[2021-06-18] MEDS ORDERED: POTA-197 PO (14:31)
[2021-06-18] MEDS ORDERED: CIPR-259 PO (14:31)
== END 2021-06-18 13:00 | disposition home or self-care (01) | DRG 389 ==
LOC: ER 22:36 → ED HOLD 06-16 06:01 → SUR 3N 06-16 13:17
PROVIDERS: ADMIT Internal Medicine; ATTEND Family Medicine
PROC: 0D9670Z Drainage of Stomach with Drainage Device, Via Natural or Artificial Opening (ICD-10-PCS; principal; 2021-06-16)
DX: K56.609 Unspecified intestinal obstruction, unspecified as to partial versus complete obstruction (principal); I50.22 Chronic systolic (congestive) heart failure; N39.0 Urinary tract infection, site not specified; E87.0 Hyperosmolality and hypernatremia; I48.0 Paroxysmal atrial fibrillation; I25.10 Atherosclerotic heart disease of native coronary artery without angina pectoris; I11.0 Hypertensive heart disease with heart failure; J44.9 Chronic obstructive pulmonary disease, unspecified; E03.9 Hypothyroidism, unspecified; Z96.642 Presence of left artificial hip joint; Z60.2 Problems related to living alone; E87.6 Hypokalemia; F32.9 Major depressive disorder, single episode, unspecified; Z93.3 Colostomy status; Z86.73 Personal history of transient ischemic attack (TIA), and cerebral infarction without residual deficits; Z90.710 Acquired absence of both cervix and uterus; I25.2 Old myocardial infarction; Z82.49 Family history of ischemic heart disease and other diseases of the circulatory system; Z82.5 Family history of asthma and other chronic lower respiratory diseases; Z90.49 Acquired absence of other specified parts of digestive tract; Z88.2 Allergy status to sulfonamides; Z88.8 Allergy status to other drugs, medicaments and biological substances; Z91.010 Allergy to peanuts; Z79.899 Other long term (current) drug therapy; Z79.890 Hormone replacement therapy
CPT/HCPCS: 36415; 74018; 74176; 80048; 80053; 81001; 83605; 83690; 83880; 84443; 85007; 85025; 87077; 87088; 87186; 93306; 96374; 96375; 99285; G0378; J0696; J2270; J2405; J3490; J7030; Q9963

== ENCOUNTER 2022-11-05 12:54 | Emergency (ER) | payer MEDICARE ==
[~2022-11-05] VITALS: Ht 165.1 cm; Wt 62.3 kg
[~2022-11-05 12:54] MED LIST changes: +ALBU6.7H14 IH; -ALBU8.5H17 IH; +BUDE10.22 PO; +CARV-50 PO; -COR3.125T PO; +DOCU-148 PO; +EMPA10TA PO; +FURO40TA4 PO; -HYDR-4383 PO; -LEVO125T PO; +LEVO125T8 PO; +MIRT-87 PO; -MONT10TA21 PO; +SACU1TAB PO; -SERT25TA PO; -SPIR25TA PO; +SPIR25TA5 PO; +VENL37.589 PO
[2022-11-05 13:12] LABS: BASOPHILS # (AUTO) 0.1 X10'3 (0-0.2); BASOPHILS % (AUTO) 1.2 % (0-1); EOSINOPHILS # (AUTO) 0.5 X10'3 (0-0.9); EOSINOPHILS % (AUTO) 6.3 % (0-6); HEMATOCRIT 32.2 % (35.0-45.0); HEMOGLOBIN 10.3 g/dl (12.0-16.0); LYMPHOCYTES # (AUTO) 1.4 X10'3 (1.1-4.8); LYMPHOCYTES % (AUTO) 19.5 % (21-51); MEAN CORPUSCULAR HEMOGLOBIN 26.3 PG (27.0-31.0); MEAN CORPUSCULAR HGB CONC 31.8 g/dL (33.0-36.5); MEAN CORPUSCULAR VOLUME 82.5 FL (78-98); MEAN PLATELET VOLUME 6.6 FL (7.4-10.4); MONOCYTES # (AUTO) 0.5 X10'3 (0-0.9); MONOCYTES % (AUTO) 6.9 % (2-12); NEUTROPHILS # (AUTO) 4.9 X10'3 (1.8-7.7); NEUTROPHILS % (AUTO) 66.1 % (42-75); PLATELET COUNT 347 X10'3 (140-440); RED BLOOD COUNT 3.91 X10'6 (4.20-5.60); WHITE BLOOD COUNT 7.4 X10'3 (4.5-11.0)
[2022-11-05 13:27] LABS: ALANINE AMINOTRANSFERASE 13 U/L (12-78); ALBUMIN 3.1 G/DL (3.4-5.0); ALBUMIN/GLOBULIN RATIO 0.8 (1.1-1.5); ALKALINE PHOSPHATASE 113 IU/L (46-116); ANION GAP 10 (8-16); ASPARTATE AMINO TRANSFERASE 20 U/L (10-37); BILIRUBIN,TOTAL 0.8 MG/DL (0.1-1.0); BLOOD UREA NITROGEN 12 MG/DL (7-18); BUN/CREATININE RATIO 8.5 (6.6-38.0); CALCIUM 8.6 MG/DL (8.5-10.1); CHLORIDE 110 MMOL/L (99-107); CREATININE 1.41 MG/DL (0.40-0.90); GLUCOSE 104 MG/DL (70-104); POTASSIUM 3.6 MMOL/L (3.5-5.1); SODIUM 142 MMOL/L (135-145); TOTAL CARBON DIOXIDE 22.1 MMOL/L (24-32); TOTAL PROTEIN 6.9 G/DL (6.4-8.2); eGFR 36 ML/MIN
[2022-11-05 13:35] LABS: MAGNESIUM 2.1 MG/DL (1.5-2.4)
[2022-11-05 13:46] LABS: ANISOCYTOSIS 2+; PLATELET ESTIMATE NORMAL
[2022-11-05 13:47] LABS: ELLIPTOCYTES 1+; POLYCHROMASIA 1+
[2022-11-05 17:04] LABS: CLARITY,URINE CLEAR (Clear); COLOR,URINE YELLOW (Yellow); GLUCOSE, URINE >=1000 mg/dl (Neg); KETONES,URINE NEGATIVE (Neg); LEUKOCYTE ESTERASE ,URINE NEGATIVE (Neg); NITRITES, URINE NEGATIVE (Neg); OCCULT BLOOD,URINE NEGATIVE (Neg); PROTEIN,URINE NEGATIVE (Neg); UROBILINOGEN,URINE 0.2 E.U/dL (0.2-1.0)
[2022-11-05 17:10] LABS: UA COLLECTION TYPE STRAIGHT CATH
[2022-11-05 17:12] LABS: BACTERIA,URINE FEW /HPF (Neg); RBC,URINE 0-2 /HPF (0-2); SQUAMOUS EPITHELIAL CELL,UR FEW /LPF (FEW); WBC,URINE 0-4 /HPF (0-4)
[2022-11-05] MEDS ORDERED: FURO40TA4 PO (19:05)
[2022-11-05 19:44] VITALS: BP 131/66
== END 2022-11-05 19:48 | disposition home or self-care (01) ==
LOC: ER 12:54
DX: I50.9 Heart failure, unspecified (principal); Z20.822 Contact with and (suspected) exposure to COVID-19; I11.0 Hypertensive heart disease with heart failure; R63.0 Anorexia; G89.29 Other chronic pain; J44.9 Chronic obstructive pulmonary disease, unspecified; M54.50 Low back pain, unspecified; Z88.2 Allergy status to sulfonamides; Z90.710 Acquired absence of both cervix and uterus
CPT/HCPCS: 36415; 71045; 80053; 81001; 83605; 83735; 83880; 84484; 85008; 85025; 87040; 87502; 87503; 87811; 93005; 93306; 99285; A4353; A4615

== ENCOUNTER 2024-03-24 12:43 | Inpatient (IN) | payer MEDICARE ==
[~2024-03-24] VITALS: Ht 154.9 cm; Wt 68.6 kg
[2024-03-24] VITALS (8 sets, daily range): BP systolic 94–118; BP diastolic 49–74; PULSE 69–71; RESP 12; O2SAT 40–100
[~2024-03-24 12:43] MED LIST changes: +ALBU2.5V12 NEB; -APIX5TAB3 PO; -CARV-50 PO; -DOCU-148 PO; -EMPA10TA PO; +EMPA25TA PO; +FERR324T2 PO; +FURO-150 PO; -FURO40TA4 PO; -MIRT-87 PO; +MONT-40 PO; +PRED10TA PO; +RIVA20TA PO; +TOPI25TA15 PO; -VENL37.589 PO; +VENL75CA61 PO
[2024-03-24] MEDS ORDERED: iohexol 350 MG/ML 50ML vial IV ONE (13:36)
[2024-03-24] MEDS ORDERED: iohexol 350MG/ML 100ml bottle IV ONE (13:36)
[2024-03-24] MEDS ORDERED: heparin 25,000 UNIT/250ml bag 250 ML IV PRN ×2 (13:40→13:45)
[2024-03-24] MEDS: morphine 4 MG/ML inj SYRINge IV ONE (13:41)
[2024-03-24] MEDS: ondansetron/PF 4mg/2ml inj IV ONE (14:08)
[2024-03-24] MEDS: normal saline 1000ML IV soln IVB ONE (14:09)
[2024-03-24] MEDS: MESSAGE TO NURSING IV ONE ×2 (14:14→20:41)
[2024-03-24 14:58] LABS: EOSINOPHILS # (AUTO) 0.1 X10'3 (0-0.9); EOSINOPHILS % (AUTO) 2.3 % (0-6); HEMATOCRIT 38.2 % (35.0-45.0); LYMPHOCYTES # (AUTO) 0.9 X10'3 (1.1-4.8); LYMPHOCYTES % (AUTO) 21.3 % (21-51); MEAN CORPUSCULAR HEMOGLOBIN 32.5 PG (27.0-31.0); MEAN CORPUSCULAR VOLUME 95.8 FL (78-98); MEAN PLATELET VOLUME 8.5 FL (7.4-10.4); MONOCYTES # (AUTO) 0.3 X10'3 (0-0.9); MONOCYTES % (AUTO) 6.6 % (2-12); NEUTROPHILS # (AUTO) 3.1 X10'3 (1.8-7.7); NEUTROPHILS % (AUTO) 68.8 % (42-75); PLATELET COUNT 132 X10'3 (140-440); RED BLOOD COUNT 3.99 X10'6 (4.20-5.60); RED CELL DISTRIBUTION WIDTH 14.4 % (11.5-14.5); WHITE BLOOD COUNT 4.4 X10'3 (4.5-11.0)
[2024-03-24 15:05] LABS: ANION GAP 7 (8-16); BLOOD UREA NITROGEN 27 MG/DL (7-18); BUN/CREATININE RATIO 19.9 (10.0-20.0); CHLORIDE 107 MMOL/L (99-107); CREATININE 1.36 MG/DL (0.40-0.90); GLUCOSE 79 MG/DL (70-104); POTASSIUM 4.2 MMOL/L (3.5-5.1); SODIUM 139 MMOL/L (135-145); eCRCL 24 ML/MIN; eGFR 37 ML/MIN
[2024-03-24 15:10] LABS: INR 1.4 INR; PROTHROMBIN TIME 14.7 SECONDS (9.0-12.0)
[2024-03-24] MEDS: heparin 10,000 units/1 ML INJ IV ONE ×2 (15:20→17:30)
[2024-03-24] MEDS: heparin 10,000 units/1 ML INJ IV PRN (15:25)
[2024-03-24] MEDS: heparin 10,000 units/1 ML INJ ONE (16:21)
[2024-03-24] MEDS ORDERED: sevoflurane 250ml liquid IH ONE (16:27)
[2024-03-24] MEDS ORDERED: midazolam 1 mg/ML 2ml injection ONE (16:43)
[2024-03-24] MEDS ORDERED: heparin 1,000unit/ml 10ml vial 10 ML ONE (17:47)
[2024-03-24] MEDS ORDERED: ceFAZolin 1000mg inj ONE ×2 (17:47)
[2024-03-24] MEDS ORDERED: fentaNYL /PF 50mcg/ml 5ml ampule ONE (17:47)
[2024-03-24] MEDS ORDERED: LIDOcaine 1% (10mg/ml) 2ml vial ONE (17:47)
[2024-03-24] MEDS ORDERED: LIDOcaine 2% (20mg/ml) 5ml vial ONE (17:47)
[2024-03-24] MEDS ORDERED: propofol inj 20 ML IV ONE (17:47)
[2024-03-24] MEDS ORDERED: rocuronium 10mg/ml inj IV ONE (17:47)
[2024-03-24] MEDS ORDERED: phenylephrine 10mg/ml inj. -priapism dosing ONE (17:48)
[2024-03-24] MEDS ORDERED: dexamethasone sod phosphate 4mg/ml inj. ONE (17:55)
[2024-03-24] MEDS ORDERED: ondansetron/PF 4mg/2ml inj ONE (17:55)
[2024-03-24] MEDS ORDERED: HYDROmorphone/PF 0.2 MG/ML SYRINGE IV PRN ×2 (18:00)
[2024-03-24] MEDS ORDERED: meperidine/PF 25mg/ml syringe IV PRN (18:00)
[2024-03-24] MEDS ORDERED: labetalol 20mg/4ml (5mg/ml) syringe IV PRN (18:00)
[2024-03-24] MEDS ORDERED: ondansetron/PF 4mg/2ml inj IV PRN (18:00)
[2024-03-24] MEDS ORDERED: fentaNYL/PF 50MCG/1 ML 2ML syringe IV PRN ×2 (18:00→18:40)
[2024-03-24] MEDS ORDERED: hydrALAZINE 20mg/ml inj. IV PRN (18:00)
[2024-03-24] MEDS ORDERED: proCHLORperazine 10 MG/2 ml inj IV PRN (18:00)
[2024-03-24] MEDS ORDERED: sugammadex 200mg/2ml injection IV ONE (18:03)
[2024-03-24] MEDS: propofol 1000mg/100ml bottle 100 ML IV SCH (18:30)
[2024-03-24] MEDS: FENTANYL-0.9 % NACL/PF 100 ML IV SCH (18:40)
[2024-03-24] MEDS ORDERED: propofol 1000mg/100ml bottle 100 ML IV SCH (18:40)
[2024-03-24] MEDS: NORepinephrine 8mg/ 250ml NS 250 ML IV PRN (18:45)
[2024-03-24] MEDS: fentaNYL/PF 50MCG/1 ML 2ML syringe IV PRN (18:54)
[2024-03-24 19:31] LABS: ABG BASE EXCESS -7.6 mmol/L (-2.0-2.0); ABG HCO3 17.1 mmol/L (22.0-26.0); ABG OXYGEN SATURATION 99.1 % (94-97); ABG PCO2 (T) 31.1 mmHg (32.0-45.0); ABG PH (T) 7.354 (7.350-7.450); ABG PO2 (T) 409.2 mmHg (75.0-100.0); FCOHb 0.4 % (0.0-3.9); FHHb 0.9 % (0.0-5.0); FMetHb 0.3 % (0.0-1.5); FO2Hb 98.4 % (94-97); MODE VENT - SIMV; PATIENT TEMPERATURE 36.1; PEEP 5 cm H2O; RESPIRATORY RATE 12 b/min; TIDAL VOLUME 450 mL; TOTAL HEMOGLOBIN 12.9 G/dl (12.0-16.0)
[2024-03-24 19:36] LABS: BASOPHILS # (AUTO) 0.1 X10'3 (0-0.2); EOSINOPHILS # (AUTO) 0.1 X10'3 (0-0.9); HEMOGLOBIN 13.3 g/dl (12.0-16.0); LYMPHOCYTES # (AUTO) 1.1 X10'3 (1.1-4.8); LYMPHOCYTES % (AUTO) 14.2 % (21-51); MEAN CORPUSCULAR HEMOGLOBIN 32.4 PG (27.0-31.0); MEAN CORPUSCULAR HGB CONC 34.2 g/dL (33.0-36.5); MEAN CORPUSCULAR VOLUME 94.6 FL (78-98); MEAN PLATELET VOLUME 8.5 FL (7.4-10.4); MONOCYTES # (AUTO) 0.3 X10'3 (0-0.9); MONOCYTES % (AUTO) 3.3 % (2-12); NEUTROPHILS # (AUTO) 6.3 X10'3 (1.8-7.7); NEUTROPHILS % (AUTO) 80.5 % (42-75); PLATELET COUNT 159 X10'3 (140-440); RED BLOOD COUNT 4.12 X10'6 (4.20-5.60); RED CELL DISTRIBUTION WIDTH 14.3 % (11.5-14.5); WHITE BLOOD COUNT 7.8 X10'3 (4.5-11.0)
[2024-03-24 19:43] LABS: ALANINE AMINOTRANSFERASE 25 U/L (12-78); ALKALINE PHOSPHATASE 99 IU/L (46-116); ANION GAP 10 (8-16); ASPARTATE AMINO TRANSFERASE 29 U/L (10-37); BILIRUBIN,TOTAL 0.6 MG/DL (0.1-1.0); BLOOD UREA NITROGEN 25 MG/DL (7-18); BUN/CREATININE RATIO 19.1 (10.0-20.0); CALCIUM 7.9 MG/DL (8.5-10.1); CHLORIDE 107 MMOL/L (99-107); CREATININE 1.31 MG/DL (0.40-0.90); GLUCOSE 119 MG/DL (70-104); MAGNESIUM 1.9 MG/DL (1.5-2.4); POTASSIUM 3.6 MMOL/L (3.5-5.1); SODIUM 139 MMOL/L (135-145); TOTAL CARBON DIOXIDE 21.7 MMOL/L (24-32); TOTAL PROTEIN 5.9 G/DL (6.4-8.2); eCRCL 25 ML/MIN; eGFR 39 ML/MIN
[2024-03-24] MEDS ORDERED: heparin 10,000 units/1 ML INJ IV ONE (20:20)
[2024-03-24] MEDS ORDERED: heparin 10,000 units/1 ML INJ IV PRN (20:20)
[2024-03-24] MEDS: ringers solution, lacted 1,000 ML IV SCH (20:30)
[2024-03-24] MEDS: acetaminophen 1,000mg/100ml IV 100 ML IV ONE (20:30)
[2024-03-25] VITALS (32 sets, daily range): BP systolic 81–123; BP diastolic 39–70; PULSE 65–109; RESP 9–23; O2SAT 94–100
[2024-03-25 00:08] LABS: APTT 51 SECONDS (22-32)
[2024-03-25] MEDS: MESSAGE TO NURSING IV ONE ×3 (01:18→19:15)
[2024-03-25] MEDS ORDERED: PERFLUTREN PROTEIN-A MICROSPHR (Optison) 0.22 MG/ML 3ML VIAL IV PRN (01:20)
[2024-03-25 03:07] LABS: BASOPHILS % (AUTO) 0.1 % (0-1); EOSINOPHILS % (AUTO) 0.1 % (0-6); HEMATOCRIT 40.1 % (35.0-45.0); HEMOGLOBIN 13.5 g/dl (12.0-16.0); LYMPHOCYTES # (AUTO) 0.8 X10'3 (1.1-4.8); LYMPHOCYTES % (AUTO) 5.4 % (21-51); MEAN CORPUSCULAR HEMOGLOBIN 31.6 PG (27.0-31.0); MEAN CORPUSCULAR HGB CONC 33.6 g/dL (33.0-36.5); MEAN CORPUSCULAR VOLUME 94.1 FL (78-98); MEAN PLATELET VOLUME 8.9 FL (7.4-10.4); MONOCYTES # (AUTO) 0.3 X10'3 (0-0.9); MONOCYTES % (AUTO) 1.7 % (2-12); NEUTROPHILS # (AUTO) 14.3 X10'3 (1.8-7.7); NEUTROPHILS % (AUTO) 92.7 % (42-75); PLATELET COUNT 259 X10'3 (140-440); RED BLOOD COUNT 4.26 X10'6 (4.20-5.60); RED CELL DISTRIBUTION WIDTH 14.4 % (11.5-14.5); WHITE BLOOD COUNT 15.4 X10'3 (4.5-11.0)
[2024-03-25 03:10] LABS: MAGNESIUM 2.1 MG/DL (1.5-2.4); PHOSPHORUS 3.5 MG/DL (2.3-4.5)
[2024-03-25 03:25] LABS: ABG BASE EXCESS -7.1 mmol/L (-2.0-2.0); ABG OXYGEN SATURATION 97.8 % (94-97); ABG PCO2 (T) 26.1 mmHg (32.0-45.0); ABG PH (T) 7.404 (7.350-7.450); FCOHb 0.7 % (0.0-3.9); FHHb 2.2 % (0.0-5.0); FMetHb 0.3 % (0.0-1.5); FO2Hb 96.8 % (94-97); MODE VENT - SIMV; PATIENT TEMPERATURE 36.6; PEEP 5 cm H2O; RESPIRATORY RATE 12 b/min; TIDAL VOLUME 450 mL
[2024-03-25 04:09] LABS: ALANINE AMINOTRANSFERASE 28 U/L (12-78); ALBUMIN 3.1 G/DL (3.4-5.0); ALKALINE PHOSPHATASE 102 IU/L (46-116); ANION GAP 15 (8-16); ASPARTATE AMINO TRANSFERASE 22 U/L (10-37); BILIRUBIN,TOTAL 0.7 MG/DL (0.1-1.0); BLOOD UREA NITROGEN 27 MG/DL (7-18); BUN/CREATININE RATIO 22.5 (10.0-20.0); CALCIUM 8.4 MG/DL (8.5-10.1); CHLORIDE 106 MMOL/L (99-107); GLUCOSE 155 MG/DL (70-104); SODIUM 139 MMOL/L (135-145); TOTAL CARBON DIOXIDE 18.1 MMOL/L (24-32); TOTAL PROTEIN 6.2 G/DL (6.4-8.2); eCRCL 28 ML/MIN; eGFR 43 ML/MIN
[2024-03-25] MEDS: ringers solution, lacted 1,000 ML IV ONE ×3 (07:10→12:11)
[2024-03-25] MEDS: ringers solution, lacted 1,000 ML IV SCH (07:10)
[2024-03-25] MEDS: HYDROmorphone/PF 0.2 MG/ML SYRINGE IV PRN (08:37)
[2024-03-25] MEDS: pantoprazole 40 MG vial IV SCH (08:50)
[2024-03-25] MEDS ORDERED: mineral oil/petrolatum ophthal oint EACHEYE SCH (20:00)
[2024-03-25] MEDS ORDERED: amiodarone 50MG/ML inj IV ONE (21:15)
[2024-03-25] MEDS: amiodarone 150mg/dext, iso-os 100 ML IV ONE (22:12)
[2024-03-26] VITALS (34 sets, daily range): BP systolic 87–126; BP diastolic 32–59; PULSE 69–109; RESP 9–18; O2SAT 87–100
[2024-03-26] MEDS: MESSAGE TO NURSING IV ONE ×3 (01:09→15:09)
[2024-03-26 02:49] LABS: BASOPHILS % (AUTO) 0.2 % (0-1); EOSINOPHILS % (AUTO) 0 % (0-6); HEMATOCRIT 27.6 % (35.0-45.0); HEMOGLOBIN 9.3 g/dl (12.0-16.0); LYMPHOCYTES # (AUTO) 2.1 X10'3 (1.1-4.8); LYMPHOCYTES % (AUTO) 15.6 % (21-51); MEAN CORPUSCULAR HEMOGLOBIN 32.2 PG (27.0-31.0); MEAN CORPUSCULAR HGB CONC 33.9 g/dL (33.0-36.5); MEAN CORPUSCULAR VOLUME 94.9 FL (78-98); MEAN PLATELET VOLUME 8.7 FL (7.4-10.4); MONOCYTES # (AUTO) 1.3 X10'3 (0-0.9); MONOCYTES % (AUTO) 9.3 % (2-12); NEUTROPHILS # (AUTO) 10.1 X10'3 (1.8-7.7); NEUTROPHILS % (AUTO) 74.9 % (42-75); PLATELET COUNT 201 X10'3 (140-440); RED BLOOD COUNT 2.91 X10'6 (4.20-5.60); RED CELL DISTRIBUTION WIDTH 14.7 % (11.5-14.5); WHITE BLOOD COUNT 13.5 X10'3 (4.5-11.0)
[2024-03-26 03:04] LABS: ALANINE AMINOTRANSFERASE 18 U/L (12-78); ALBUMIN 2.5 G/DL (3.4-5.0); ALKALINE PHOSPHATASE 71 IU/L (46-116); ANION GAP 10 (8-16); ASPARTATE AMINO TRANSFERASE 15 U/L (10-37); BILIRUBIN,TOTAL 0.4 MG/DL (0.1-1.0); BLOOD UREA NITROGEN 24 MG/DL (7-18); BUN/CREATININE RATIO 20.3 (10.0-20.0); CHLORIDE 108 MMOL/L (99-107); CREATININE 1.18 MG/DL (0.40-0.90); GLUCOSE 128 MG/DL (70-104); MAGNESIUM 1.8 MG/DL (1.5-2.4); PHOSPHORUS 3.2 MG/DL (2.3-4.5); POTASSIUM 3.8 MMOL/L (3.5-5.1); SODIUM 141 MMOL/L (135-145); TOTAL CARBON DIOXIDE 23.3 MMOL/L (24-32); eCRCL 28 ML/MIN; eGFR 44 ML/MIN
[2024-03-26] MEDS ORDERED: iohexol 350MG/ML 100ml bottle IV ONE (08:08)
[2024-03-26] MEDS ORDERED: iohexol 350 MG/ML 50ML vial IV ONE (08:08)
[2024-03-26 08:24] LABS: CREATINE KINASE 36 U/L (26-192)
[2024-03-26] MEDS ORDERED: albumin (human) 25% 100ml IV 100 ML in dextrose 5% water 500ml 400 ML IV ONE (10:35)
[2024-03-26] MEDS: albumin (Human) 5% 250ml 500 ML IV ONE (10:48)
[2024-03-26] MEDS ORDERED: GABA300C PO (11:19)
[2024-03-26] MEDS ORDERED: LEVO75TA7 PO (11:19)
[2024-03-26] MEDS ORDERED: FURO20TA4 PO (11:19)
[2024-03-26] MEDS ORDERED: TOPI-95 PO (11:19)
[2024-03-26] MEDS ORDERED: FLUT1BLS10 INH (11:19)
[2024-03-26] MEDS ORDERED: CHOL500049 PO (11:19)
[2024-03-26] MEDS ORDERED: PANT40TA54 PO (11:19)
[2024-03-26] MEDS ORDERED: TOBR5DRO7 EACHEYE (11:19)
[2024-03-26] MEDS: gabapentin 300mg capsule PO SCH (13:00)
[2024-03-26] MEDS: heparin 25,000 UNIT/250ml bag 250 ML IV PRN (13:25)
[2024-03-26] MEDS: tobramycin/dexamethasone ophthalmic suspension EACHEYE SCH (14:00)
[2024-03-26] MEDS ORDERED: propofol inj 20 ML IV ONE (14:18)
[2024-03-26] MEDS ORDERED: midazolam 1 mg/ML 2ml injection ONE (14:19)
[2024-03-26] MEDS ORDERED: rocuronium 10mg/ml inj IV ONE (14:19)
[2024-03-26] MEDS ORDERED: fentaNYL/PF 50MCG/1 ML 2ML syringe ONE (14:19)
[2024-03-26 14:23] LABS: POTASSIUM 3.6 MMOL/L (3.5-5.1); THYROID STIMULATING HORMONE 1.24 ulU/ml (0.34-4.50)
[2024-03-26] MEDS ORDERED: sevoflurane 250ml liquid IH ONE (14:24)
[2024-03-26] MEDS ORDERED: ceFAZolin 1000mg inj ONE ×2 (14:50)
[2024-03-26] MEDS: ceFAZolin 1000mg inj ONE (15:13)
[2024-03-26] MEDS: ceFAZolin 1000mg inj IR ONE (15:40)
[2024-03-26] MEDS ORDERED: potassium Cl 20mEq/100mL bag 100 ML IV PRN (19:35)
[2024-03-26] MEDS ORDERED: potassium Cl 40MEQ/270ML bag 270 ML IV PRN (19:35)
[2024-03-26] MEDS ORDERED: potassium Cl 20 mEq SR tablet PO PRN ×2 (19:35)
[2024-03-26] MEDS ORDERED: magnesium 2GM in 50ml NS 50 ML IV PRN (19:35)
[2024-03-26] MEDS ORDERED: magnesium 4gm in 100ml NS 100 ML IV PRN (19:35)
[2024-03-26] MEDS: topiramate 25mg tablet PO SCH (20:00)
[2024-03-26] MEDS: montelukast 10mg tablet PO SCH (20:21)
[2024-03-26] MEDS: venlafaxine XR 75mg capsule (Q24H) PO SCH (20:21)
[2024-03-26] MEDS: pantoprazole 40mg Tablet.DR PO SCH (20:22)
[2024-03-26] MEDS: amiodarone 100mg tablet PO SCH (20:22)
[2024-03-26] MEDS: oxyCODONE IR 5mg (immed. release) tablet PO PRN (20:22)
[2024-03-26] MEDS: sacubitril/valsartan 24mg-26mg tablet PO SCH (20:22)
[2024-03-26] MEDS: acetaminophen 1,000mg/100ml IV 100 ML IV SCH (20:23)
[2024-03-26] MEDS: budesonide 0.5mg/2ml UD nebule IH SCH (20:45)
[2024-03-27] VITALS (25 sets, daily range): BP systolic 87–126; BP diastolic 37–53; PULSE 69–76; RESP 10–20; O2SAT 94–97
[2024-03-27 00:48] LABS: HEMOGLOBIN 7.1 g/dl (12.0-16.0); RED BLOOD COUNT 2.16 X10'6 (4.20-5.60)
[2024-03-27 00:49] LABS: BASOPHILS % (AUTO) 0.5 % (0-1); EOSINOPHILS % (AUTO) 0.1 % (0-6); LYMPHOCYTES # (AUTO) 1.6 X10'3 (1.1-4.8); LYMPHOCYTES % (AUTO) 19.4 % (21-51); MEAN CORPUSCULAR HGB CONC 34.9 g/dL (33.0-36.5); MEAN CORPUSCULAR VOLUME 94.5 FL (78-98); MEAN PLATELET VOLUME 8.1 FL (7.4-10.4); MONOCYTES % (AUTO) 12.2 % (2-12); NEUTROPHILS # (AUTO) 5.4 X10'3 (1.8-7.7); NEUTROPHILS % (AUTO) 67.8 % (42-75); PLATELET COUNT 138 X10'3 (140-440); RED CELL DISTRIBUTION WIDTH 14.6 % (11.5-14.5)
[2024-03-27 00:57] LABS: HEMATOCRIT 20.4 % (35.0-45.0)
[2024-03-27 00:58] LABS: ALANINE AMINOTRANSFERASE 15 U/L (12-78); ALBUMIN 2.5 G/DL (3.4-5.0); ALBUMIN/GLOBULIN RATIO 1.2 (1.1-1.5); ALKALINE PHOSPHATASE 58 IU/L (46-116); ANION GAP 8 (8-16); ASPARTATE AMINO TRANSFERASE 15 U/L (10-37); BILIRUBIN,TOTAL 0.5 MG/DL (0.1-1.0); BLOOD UREA NITROGEN 20 MG/DL (7-18); BUN/CREATININE RATIO 17.2 (10.0-20.0); CALCIUM 7.6 MG/DL (8.5-10.1); CHLORIDE 107 MMOL/L (99-107); CREATININE 1.16 MG/DL (0.40-0.90); GLUCOSE 101 MG/DL (70-104); MAGNESIUM 1.7 MG/DL (1.5-2.4); PHOSPHORUS 2.5 MG/DL (2.3-4.5); POTASSIUM 3.4 MMOL/L (3.5-5.1); SODIUM 139 MMOL/L (135-145); TOTAL CARBON DIOXIDE 24.4 MMOL/L (24-32); TOTAL PROTEIN 4.6 G/DL (6.4-8.2); eCRCL 29 ML/MIN; eGFR 45 ML/MIN
[2024-03-27] MEDS: potassium Cl 20mEq/100mL bag 100 ML IV PRN (02:43)
[2024-03-27 05:44] LABS: MEAN CORPUSCULAR HEMOGLOBIN 32.1 PG (27.0-31.0); MEAN CORPUSCULAR HGB CONC 33.6 g/dL (33.0-36.5); MEAN CORPUSCULAR VOLUME 95.4 FL (78-98); MEAN PLATELET VOLUME 8.1 FL (7.4-10.4); PLATELET COUNT 148 X10'3 (140-440); RED BLOOD COUNT 2.25 X10'6 (4.20-5.60); RED CELL DISTRIBUTION WIDTH 14.9 % (11.5-14.5); WHITE BLOOD COUNT 8.2 X10'3 (4.5-11.0)
[2024-03-27 05:45] LABS: HEMATOCRIT 21.4 % (35.0-45.0); HEMOGLOBIN 7.2 g/dl (12.0-16.0)
[2024-03-27] MEDS: MESSAGE TO NURSING IV ONE ×2 (06:23→12:19)
[2024-03-27] MEDS: furosemide 20MG tablet PO SCH (07:55)
[2024-03-27] MEDS: levoTHYROXINE 75mcg tablet PO SCH (07:55)
[2024-03-27] MEDS: EMPAGLIFLOZIN 25 MG TABLET PO SCH (07:56)
[2024-03-27] MEDS: ferrous gluconate 324mg tablet PO SCH (07:56)
[2024-03-27] MEDS: K and/or MAG REPLACEMENT MC SCH (08:00)
[2024-03-27] MEDS: spironolactone 25 MG tablet PO SCH (08:00)
[2024-03-27] MEDS: midodrine 5mg tablet PO SCH (09:09)
[2024-03-27] MEDS: apixaban 5mg tablet PO SCH (12:29)
[2024-03-27] MEDS: gabapentin 300mg capsule PO SCH (20:16)
[2024-03-28] VITALS (27 sets, daily range): BP systolic 76–122; BP diastolic 35–55; PULSE 69–76; RESP 10–20; O2SAT 94–98
[2024-03-28 02:45] LABS: BASOPHILS # (AUTO) 0.1 X10'3 (0-0.2); EOSINOPHILS # (AUTO) 0.2 X10'3 (0-0.9); EOSINOPHILS % (AUTO) 2.8 % (0-6); HEMOGLOBIN 7.3 g/dl (12.0-16.0); LYMPHOCYTES # (AUTO) 1.5 X10'3 (1.1-4.8); LYMPHOCYTES % (AUTO) 21.8 % (21-51); MEAN CORPUSCULAR HEMOGLOBIN 32.5 PG (27.0-31.0); MEAN CORPUSCULAR HGB CONC 34.1 g/dL (33.0-36.5); MEAN CORPUSCULAR VOLUME 95.3 FL (78-98); MONOCYTES # (AUTO) 0.6 X10'3 (0-0.9); MONOCYTES % (AUTO) 9.1 % (2-12); NEUTROPHILS # (AUTO) 4.6 X10'3 (1.8-7.7); NEUTROPHILS % (AUTO) 65.3 % (42-75); PLATELET COUNT 138 X10'3 (140-440); RED BLOOD COUNT 2.25 X10'6 (4.20-5.60); RED CELL DISTRIBUTION WIDTH 15.1 % (11.5-14.5)
[2024-03-28 02:48] LABS: HEMATOCRIT 21.4 % (35.0-45.0)
[2024-03-28 02:59] LABS: ALANINE AMINOTRANSFERASE 15 U/L (12-78); ALBUMIN 2.4 G/DL (3.4-5.0); ALKALINE PHOSPHATASE 71 IU/L (46-116); ANION GAP 7 (8-16); ASPARTATE AMINO TRANSFERASE 10 U/L (10-37); BILIRUBIN,TOTAL 0.5 MG/DL (0.1-1.0); BLOOD UREA NITROGEN 18 MG/DL (7-18); CHLORIDE 106 MMOL/L (99-107); CREATININE 1.29 MG/DL (0.40-0.90); GLUCOSE 95 MG/DL (70-104); MAGNESIUM 1.8 MG/DL (1.5-2.4); PHOSPHORUS 2.9 MG/DL (2.3-4.5); POTASSIUM 3.9 MMOL/L (3.5-5.1); SODIUM 138 MMOL/L (135-145); TOTAL CARBON DIOXIDE 24.9 MMOL/L (24-32); TOTAL PROTEIN 4.8 G/DL (6.4-8.2); eCRCL 26 ML/MIN; eGFR 40 ML/MIN
[2024-03-28] MEDS: ringers solution, lacted 1,000 ML IV ONE ×3 (11:10→13:07)
[2024-03-28] MEDS: ringers solution, lacted 1,000 ML IV SCH (11:36)
[2024-03-28] MEDS: rivaroxaban 15mg tablet PO SCH (17:40)
[2024-03-29] VITALS (28 sets, daily range): BP systolic 79–124; BP diastolic 37–56; PULSE 69–74; RESP 11–22; O2SAT 94–100
[2024-03-29 02:47] LABS: BASOPHILS % (AUTO) 0.9 % (0-1); EOSINOPHILS # (AUTO) 0.3 X10'3 (0-0.9); LYMPHOCYTES # (AUTO) 1.4 X10'3 (1.1-4.8); MEAN CORPUSCULAR HEMOGLOBIN 31.9 PG (27.0-31.0); MEAN CORPUSCULAR HGB CONC 33.3 g/dL (33.0-36.5); MEAN CORPUSCULAR VOLUME 95.7 FL (78-98); MEAN PLATELET VOLUME 8.1 FL (7.4-10.4); MONOCYTES # (AUTO) 0.4 X10'3 (0-0.9); MONOCYTES % (AUTO) 7.9 % (2-12); NEUTROPHILS # (AUTO) 3.1 X10'3 (1.8-7.7); NEUTROPHILS % (AUTO) 59.2 % (42-75); PLATELET COUNT 136 X10'3 (140-440); RED BLOOD COUNT 2.19 X10'6 (4.20-5.60); RED CELL DISTRIBUTION WIDTH 15.4 % (11.5-14.5); WHITE BLOOD COUNT 5.3 X10'3 (4.5-11.0)
[2024-03-29 02:51] LABS: HEMATOCRIT 20.9 % (35.0-45.0)
[2024-03-29 02:58] LABS: ALANINE AMINOTRANSFERASE 13 U/L (12-78); ALBUMIN 2.1 G/DL (3.4-5.0); ALKALINE PHOSPHATASE 69 IU/L (46-116); ANION GAP 4 (8-16); ASPARTATE AMINO TRANSFERASE 12 U/L (10-37); BILIRUBIN,TOTAL 0.6 MG/DL (0.1-1.0); BLOOD UREA NITROGEN 19 MG/DL (7-18); CALCIUM 7.9 MG/DL (8.5-10.1); CHLORIDE 109 MMOL/L (99-107); CREATININE 1.27 MG/DL (0.40-0.90); GLUCOSE 88 MG/DL (70-104); MAGNESIUM 1.7 MG/DL (1.5-2.4); POTASSIUM 3.7 MMOL/L (3.5-5.1); SODIUM 141 MMOL/L (135-145); TOTAL PROTEIN 4.3 G/DL (6.4-8.2); eCRCL 26 ML/MIN; eGFR 40 ML/MIN
[2024-03-29] MEDS: apixaban 5mg tablet PO SCH (19:54)
[2024-03-29] MEDS: albuterol 2.5 MG/3 ML nebule NEB PRN (22:11)
[2024-03-30] VITALS (25 sets, daily range): BP systolic 83–113; BP diastolic 41–64; PULSE 69–78; RESP 10–37; TEMP 97.5; O2SAT 90–100
[2024-03-30 03:26] LABS: BASOPHILS % (AUTO) 0.5 % (0-1); EOSINOPHILS # (AUTO) 0.2 X10'3 (0-0.9); EOSINOPHILS % (AUTO) 3.9 % (0-6); HEMOGLOBIN 7.2 g/dl (12.0-16.0); LYMPHOCYTES # (AUTO) 1.2 X10'3 (1.1-4.8); LYMPHOCYTES % (AUTO) 25.5 % (21-51); MEAN CORPUSCULAR HEMOGLOBIN 32.3 PG (27.0-31.0); MEAN CORPUSCULAR HGB CONC 33.2 g/dL (33.0-36.5); MEAN CORPUSCULAR VOLUME 97.1 FL (78-98); MEAN PLATELET VOLUME 7.9 FL (7.4-10.4); MONOCYTES # (AUTO) 0.5 X10'3 (0-0.9); MONOCYTES % (AUTO) 9.6 % (2-12); NEUTROPHILS # (AUTO) 2.9 X10'3 (1.8-7.7); NEUTROPHILS % (AUTO) 60.5 % (42-75); PLATELET COUNT 151 X10'3 (140-440); RED BLOOD COUNT 2.23 X10'6 (4.20-5.60); RED CELL DISTRIBUTION WIDTH 15.4 % (11.5-14.5); WHITE BLOOD COUNT 4.9 X10'3 (4.5-11.0)
[2024-03-30 03:33] LABS: HEMATOCRIT 21.7 % (35.0-45.0)
[2024-03-30 03:43] LABS: ALANINE AMINOTRANSFERASE 13 U/L (12-78); ALBUMIN/GLOBULIN RATIO 0.8 (1.1-1.5); ALKALINE PHOSPHATASE 84 IU/L (46-116); ANION GAP 6 (8-16); ASPARTATE AMINO TRANSFERASE 9 U/L (10-37); BILIRUBIN,TOTAL 0.9 MG/DL (0.1-1.0); BLOOD UREA NITROGEN 19 MG/DL (7-18); BUN/CREATININE RATIO 15.2 (10.0-20.0); CALCIUM 8.1 MG/DL (8.5-10.1); CHLORIDE 107 MMOL/L (99-107); CREATININE 1.25 MG/DL (0.40-0.90); GLUCOSE 79 MG/DL (70-104); MAGNESIUM 1.9 MG/DL (1.5-2.4); PHOSPHORUS 2.9 MG/DL (2.3-4.5); POTASSIUM 3.6 MMOL/L (3.5-5.1); SODIUM 139 MMOL/L (135-145); TOTAL PROTEIN 4.5 G/DL (6.4-8.2); eCRCL 27 ML/MIN; eGFR 41 ML/MIN
[2024-03-30 06:59] LABS: HEMOGLOBIN A1C 4.1 % (4.5-6.2)
[2024-03-30] MEDS: cholecalciferol (vitamin D3) 1,000 unit (25mcg) tablet PO SCH (07:32)
[2024-03-30] MEDS: acetaminophen 1,000mg/100ml IV 100 ML IV PRN (14:18)
[2024-03-30] MEDS: JUVEN Smoothie Arginine/Glut./Ca2+Bmb (Juven 19.3pkt) 240ml cup PO SCH (18:50)
[2024-03-31] VITALS (11 sets, daily range): BP systolic 90–115; BP diastolic 44–59; PULSE 69–74; RESP 13–19; TEMP 97.3–98.2; O2SAT 93–98
[2024-03-31 09:45] LABS: BASOPHILS % (AUTO) 0.9 % (0-1); EOSINOPHILS # (AUTO) 0.3 X10'3 (0-0.9); EOSINOPHILS % (AUTO) 6.7 % (0-6); HEMATOCRIT 23.2 % (35.0-45.0); HEMOGLOBIN 7.8 g/dl (12.0-16.0); LYMPHOCYTES # (AUTO) 1.2 X10'3 (1.1-4.8); LYMPHOCYTES % (AUTO) 24.3 % (21-51); MEAN CORPUSCULAR HEMOGLOBIN 32.8 PG (27.0-31.0); MEAN CORPUSCULAR HGB CONC 33.7 g/dL (33.0-36.5); MEAN CORPUSCULAR VOLUME 97.5 FL (78-98); MEAN PLATELET VOLUME 7.3 FL (7.4-10.4); MONOCYTES # (AUTO) 0.3 X10'3 (0-0.9); MONOCYTES % (AUTO) 7.3 % (2-12); NEUTROPHILS # (AUTO) 2.9 X10'3 (1.8-7.7); NEUTROPHILS % (AUTO) 60.8 % (42-75); PLATELET COUNT 177 X10'3 (140-440); RED BLOOD COUNT 2.38 X10'6 (4.20-5.60); RED CELL DISTRIBUTION WIDTH 15.2 % (11.5-14.5); WHITE BLOOD COUNT 4.8 X10'3 (4.5-11.0)
[2024-03-31 10:08] LABS: ALANINE AMINOTRANSFERASE 13 U/L (12-78); ALBUMIN 2.1 G/DL (3.4-5.0); ALBUMIN/GLOBULIN RATIO 0.8 (1.1-1.5); ALKALINE PHOSPHATASE 102 IU/L (46-116); ANION GAP 8 (8-16); ASPARTATE AMINO TRANSFERASE 8 U/L (10-37); BILIRUBIN,TOTAL 1.1 MG/DL (0.1-1.0); BLOOD UREA NITROGEN 19 MG/DL (7-18); BUN/CREATININE RATIO 13.7 (10.0-20.0); CALCIUM 8.2 MG/DL (8.5-10.1); CHLORIDE 108 MMOL/L (99-107); CREATININE 1.39 MG/DL (0.40-0.90); GLUCOSE 100 MG/DL (70-104); MAGNESIUM 1.9 MG/DL (1.5-2.4); POTASSIUM 3.5 MMOL/L (3.5-5.1); SODIUM 139 MMOL/L (135-145); TOTAL CARBON DIOXIDE 23.5 MMOL/L (24-32); TOTAL PROTEIN 4.7 G/DL (6.4-8.2); eCRCL 24 ML/MIN; eGFR 36 ML/MIN
[2024-03-31] MEDS: polyethylene glycol 3350 17gm powd pack PO PRN (10:26)
[2024-03-31] MEDS ORDERED: bisacodyl 10mg suppository rectal RC PRN (14:35)
[2024-03-31] MEDS ORDERED: mineral oil 133ml enema RC PRN (14:35)
[2024-03-31] MEDS: bisacodyl 10mg suppository rectal RC STA (15:15)
[2024-03-31] MEDS: lactulose 20gm/30ml cup PO SCH (19:06)
[2024-03-31] MEDS: docusate sod 100mg capsule PO SCH (19:07)
[2024-04-01] VITALS (12 sets, daily range): BP systolic 92–106; BP diastolic 43–60; PULSE 65–71; RESP 14–18; TEMP 97.5–98.8; O2SAT 94–97
[2024-04-01 05:32] LABS: EOSINOPHILS # (AUTO) 0.3 X10'3 (0-0.9); EOSINOPHILS % (AUTO) 6.3 % (0-6); HEMATOCRIT 23.6 % (35.0-45.0); HEMOGLOBIN 7.9 g/dl (12.0-16.0); LYMPHOCYTES # (AUTO) 1.4 X10'3 (1.1-4.8); MEAN CORPUSCULAR HGB CONC 33.4 g/dL (33.0-36.5); MEAN CORPUSCULAR VOLUME 98.8 FL (78-98); MEAN PLATELET VOLUME 7.5 FL (7.4-10.4); MONOCYTES # (AUTO) 0.4 X10'3 (0-0.9); MONOCYTES % (AUTO) 8.7 % (2-12); NEUTROPHILS # (AUTO) 2.7 X10'3 (1.8-7.7); PLATELET COUNT 201 X10'3 (140-440); RED BLOOD COUNT 2.39 X10'6 (4.20-5.60); RED CELL DISTRIBUTION WIDTH 16.1 % (11.5-14.5); WHITE BLOOD COUNT 4.9 X10'3 (4.5-11.0)
[2024-04-01 06:23] LABS: ALANINE AMINOTRANSFERASE 12 U/L (12-78); ALBUMIN/GLOBULIN RATIO 0.7 (1.1-1.5); ALKALINE PHOSPHATASE 98 IU/L (46-116); ANION GAP 6 (8-16); ASPARTATE AMINO TRANSFERASE 7 U/L (10-37); BLOOD UREA NITROGEN 18 MG/DL (7-18); BUN/CREATININE RATIO 13.5 (10.0-20.0); CALCIUM 8.3 MG/DL (8.5-10.1); CHLORIDE 109 MMOL/L (99-107); CREATININE 1.33 MG/DL (0.40-0.90); GLUCOSE 76 MG/DL (70-104); POTASSIUM 3.9 MMOL/L (3.5-5.1); SODIUM 142 MMOL/L (135-145); TOTAL CARBON DIOXIDE 26.7 MMOL/L (24-32); TOTAL PROTEIN 4.7 G/DL (6.4-8.2); eCRCL 25 ML/MIN; eGFR 38 ML/MIN
[2024-04-01] MEDS ORDERED: lactulose 20gm/30ml cup PO PRN (08:15)
[2024-04-02 02:00] VITALS: BP 103/43; PULSE 74; RESP 14; TEMP 98.4; O2SAT 96
[2024-04-02 07:18] LABS: ALANINE AMINOTRANSFERASE 14 U/L (12-78); ALBUMIN/GLOBULIN RATIO 0.7 (1.1-1.5); ALKALINE PHOSPHATASE 102 IU/L (46-116); ANION GAP 8 (8-16); ASPARTATE AMINO TRANSFERASE 15 U/L (10-37); BLOOD UREA NITROGEN 16 MG/DL (7-18); BUN/CREATININE RATIO 13.1 (10.0-20.0); CALCIUM 8.3 MG/DL (8.5-10.1); CHLORIDE 109 MMOL/L (99-107); CREATININE 1.22 MG/DL (0.40-0.90); GLUCOSE 87 MG/DL (70-104); MAGNESIUM 1.9 MG/DL (1.5-2.4); POTASSIUM 3.5 MMOL/L (3.5-5.1); SODIUM 142 MMOL/L (135-145); TOTAL CARBON DIOXIDE 24.9 MMOL/L (24-32); TOTAL PROTEIN 4.8 G/DL (6.4-8.2); eCRCL 27 ML/MIN; eGFR 42 ML/MIN
[2024-04-02 07:25] LABS: BASOPHILS % (AUTO) 0.8 % (0-1); EOSINOPHILS # (AUTO) 0.2 X10'3 (0-0.9); EOSINOPHILS % (AUTO) 3.3 % (0-6); HEMATOCRIT 23.9 % (35.0-45.0); HEMOGLOBIN 7.9 g/dl (12.0-16.0); LYMPHOCYTES # (AUTO) 1.4 X10'3 (1.1-4.8); LYMPHOCYTES % (AUTO) 29.4 % (21-51); MEAN CORPUSCULAR HEMOGLOBIN 32.8 PG (27.0-31.0); MEAN CORPUSCULAR HGB CONC 32.9 g/dL (33.0-36.5); MEAN CORPUSCULAR VOLUME 99.5 FL (78-98); MEAN PLATELET VOLUME 7.2 FL (7.4-10.4); MONOCYTES # (AUTO) 0.4 X10'3 (0-0.9); MONOCYTES % (AUTO) 7.7 % (2-12); NEUTROPHILS # (AUTO) 2.8 X10'3 (1.8-7.7); NEUTROPHILS % (AUTO) 58.8 % (42-75); PLATELET COUNT 226 X10'3 (140-440); RED BLOOD COUNT 2.41 X10'6 (4.20-5.60); RED CELL DISTRIBUTION WIDTH 16.3 % (11.5-14.5); WHITE BLOOD COUNT 4.8 X10'3 (4.5-11.0)
[2024-04-02 08:00] VITALS: RESP 18; O2SAT 97
[2024-04-02] MEDS: gabapentin 300mg capsule PO SCH (08:04)
[2024-04-02] MEDS: amiodarone 100mg tablet PO SCH (08:04)
[2024-04-02 09:15] VITALS: PULSE 76; RESP 16; O2SAT 94
[2024-04-02 09:26] VITALS: PULSE 70; RESP 18
[2024-04-02] MEDS ORDERED: APIX5TAB3 PO (09:58)
[2024-04-02] MEDS ORDERED: MIDO5TAB4 PO (09:58)
[2024-04-02] MEDS ORDERED: AMIO100T4 PO (09:58)
[2024-04-02] MEDS ORDERED: OXYC-658 PO (09:58)
[2024-04-02 11:00] VITALS: BP 132/63; PULSE 85; RESP 18; TEMP 97.8; O2SAT 99
[2024-04-19] MEDS ORDERED: rivaroxaban 20mg tablet PO SCH (18:00)
== END 2024-04-02 16:03 | disposition home health service (06) | DRG 252 ==
LOC: ER 12:44 → CICU 2S 18:44 → PCU 3S 03-30 19:50
PROVIDERS: ADMIT Surgery; ATTEND Surgery
PROC: 5A1935Z Respiratory Ventilation, Less than 24 Consecutive Hours (ICD-10-PCS; 2024-03-24)
PROC: B420ZZZ Computerized Tomography (CT Scan) of Abdominal Aorta (ICD-10-PCS; 2024-03-24)
PROC: B42CZZZ Computerized Tomography (CT Scan) of Pelvic Arteries (ICD-10-PCS; 2024-03-24)
PROC: B42HZZZ Computerized Tomography (CT Scan) of Bilateral Lower Extremity Arteries (ICD-10-PCS; 2024-03-24)
PROC: BW25ZZZ Computerized Tomography (CT Scan) of Chest, Abdomen and Pelvis (ICD-10-PCS; 2024-03-24)
PROC: 04CK0ZZ Extirpation of Matter from Right Femoral Artery, Open Approach (ICD-10-PCS; principal; 2024-03-24 16:27)
PROC: 0KNS0ZZ Release Right Lower Leg Muscle, Open Approach (ICD-10-PCS; 2024-03-26)
PROC: 0KNS0ZZ Release Right Lower Leg Muscle, Open Approach (ICD-10-PCS; 2024-03-26)
PROC: 2W16X6Z Compression of Right Inguinal Region using Pressure Dressing (ICD-10-PCS; 2024-03-26)
PROC: B420ZZZ Computerized Tomography (CT Scan) of Abdominal Aorta (ICD-10-PCS; 2024-03-26)
PROC: B42HZZZ Computerized Tomography (CT Scan) of Bilateral Lower Extremity Arteries (ICD-10-PCS; 2024-03-26)
DX: I70.221 Atherosclerosis of native arteries of extremities with rest pain, right leg (principal); G92.8 Other toxic encephalopathy; J96.90 Respiratory failure, unspecified, unspecified whether with hypoxia or hypercapnia; N17.0 Acute kidney failure with tubular necrosis; E44.1 Mild protein-calorie malnutrition; I42.9 Cardiomyopathy, unspecified; I50.22 Chronic systolic (congestive) heart failure; D62 Acute posthemorrhagic anemia; T79.A21A Traumatic compartment syndrome of right lower extremity, initial encounter; E03.9 Hypothyroidism, unspecified; E78.5 Hyperlipidemia, unspecified; I11.0 Hypertensive heart disease with heart failure; F32.A Depression, unspecified; G89.29 Other chronic pain; I25.10 Atherosclerotic heart disease of native coronary artery without angina pectoris; J44.89 Other specified chronic obstructive pulmonary disease; E87.6 Hypokalemia; I48.0 Paroxysmal atrial fibrillation; I95.9 Hypotension, unspecified; F03.90 Unspecified dementia, unspecified severity, without behavioral disturbance, psychotic disturbance, mood disturbance, and anxiety; Z79.01 Long term (current) use of anticoagulants; Z79.84 Long term (current) use of oral hypoglycemic drugs; Z79.899 Other long term (current) drug therapy; Z82.49 Family history of ischemic heart disease and other diseases of the circulatory system; Z82.5 Family history of asthma and other chronic lower respiratory diseases; Z86.73 Personal history of transient ischemic attack (TIA), and cerebral infarction without residual deficits; Z90.710 Acquired absence of both cervix and uterus; Z95.810 Presence of automatic (implantable) cardiac defibrillator; Z86.74 Personal history of sudden cardiac arrest; Z88.5 Allergy status to narcotic agent; Z88.6 Allergy status to analgesic agent; Z88.1 Allergy status to other antibiotic agents; Z91.010 Allergy to peanuts; Z90.49 Acquired absence of other specified parts of digestive tract; Z68.28 Body mass index [BMI] 28.0-28.9, adult; X58.XXXA Exposure to other specified factors, initial encounter; Y93.89 Activity, other specified; Y92.89 Other specified places as the place of occurrence of the external cause; Y99.8 Other external cause status
CPT/HCPCS: 36415; 36600; 70450; 71045; 71275; 74018; 75635; 80048; 80053; 82550; 82803; 82948; 83036; 83605; 83735; 84100; 84132; 84145; 84443; 84484; 85018; 85025; 85027; 85610; 85730; 86885; 86900; 86901; 86920; 87070; 87081; 93005; 93306; 93880; 93922; 93926; 94002; 94003; 94640; 94760; 96365; 96375; 96376; 97116; 97162; 97530; 97535; 99285; A4215; A4615; A4618; A4649; A5200; A6196; A6213; A6222; A6223; A6253; A6258; A6402; A6407; A6446; A6449; A7000; C1751; C1758; C9113; G0378; J0131; J0282; J0690; J1100; J1170; J1644; J2250; J2370; J2405; J2704; J3010; J3480; J3490; J7030; J7040; J7120; P9045; Q9967